=== PATIENT | female | born 1945 | race Caucasian/White ===

== ENCOUNTER 2018-10-03 15:53 | Emergency (ER) | payer BC ==
[2018-10-03 16:37] VITALS: BP 136/70; PULSE 70; TEMP 98; BMI 30.9
--- NOTE | 2018-10-03 16:56 | PDOC ---
History of Present Illness <Navjot Plascencia - Last Filed: 10/03/18 18:43> - General History Source: Patient Exam Limitations: No Limitations - History of Present Illness Initial Comments: 10/03/18 17:26 Irene Newell is a 73yF with PMHx of hypertension and back pain presenting with left ankle pain. Yesterday at 5pm, she tripped and fell down while walking down the stairs, collapsing on her legs. No head trauma or loss of consciousness. Her left ankle and lower leg had subsequent swelling, extensive erythema, and pain especially around the ankle. She iced the leg and took 2 extra strength tylenol without symptom relief. She was able to bear weight on her left leg after the incident. Denies anticoagulant use. <Gallo Ball - Last Filed: 10/03/18 21:39> - General Chief Complaint: Injury Stated Complaint: LEFT ANKLE PAIN Time Seen by Provider: 10/03/18 16:55 Past History <Navjot Plascencia - Last Filed: 10/03/18 18:43> - Travel Traveled outside of the country in the last 30 days: No Close contact w/someone who was outside of country & ill: No - Past Medical History Cardiac Disorders: Yes (STENT X1) COPD: No Disorders: Yes (UROSEPSIS) HTN: Yes Kidney Stones: Yes (RENAL STENT) Other medical history: CHRONIC BACK PAIN - Suicide/Smoking/Psychosocial Hx Smoking History: Never smoked Hx Alcohol Use: Yes (SOCIAL) Drug/Substance Use Hx: No <Gallo Ball - Last Filed: 10/03/18 21:39> - Past Medical History Allergies/Adverse Reactions: Allergies Allergy/AdvReac Type Severity Reaction Status Date / Time ibuprofen AdvReac Verified 10/03/18 16:33 Home Medications: Ambulatory Orders Gabapentin [Neurontin] 200 mg PO TID 10/03/18 Metoprolol Succinate [Toprol Xl] 25 mg PO DAILY 10/03/18 Oxycodone HCl/Acetaminophen [Percocet 5-325 mg Tablet] 1 - 2 tab PO Q6H PRN #20 tab MDD 6 10/03/18 Review of Systems - Review of Systems Able to Perform ROS?: Yes Is the patient limited Albanian proficient: No Constitutional: No: Chills, Fever, Weakness HEENTM: No: Eye Pain, Ear Pain, Nose Pain Respiratory: No: Cough, Shortness of Breath Cardiac (ROS): No: Chest Pain, Palpitations, Syncope ABD/GI: No: Constipated, Diarrhea : No: Flank Pain, Urgency Musculoskeletal: Yes: Joint Swelling (left ankle swelling), Other (left ankle pain) Integumentary: No: Flushing, Rash, Sweating Neurological: No: Headache, Seizure, Weakness Hematologic/Lymphatic: Yes: Other (bruising left ankle and lower leg). No: Anemia <Gallo Ball - Last Filed: 10/03/18 21:39> *Physical Exam - Vital Signs Last Vital Signs Temp Pulse Resp BP Pulse Ox 98.0 F 70 18 136/70 97 10/03/18 15:54 10/03/18 15:54 10/03/18 15:54 10/03/18 15:54 10/03/18 15:54 <Navjot Plascencia - Last Filed: 10/03/18 18:43> - Vital Signs Last Vital Signs Temp Pulse Resp BP Pulse Ox 98.0 F 70 18 136/70 97 10/03/18 15:54 10/03/18 15:54 10/03/18 15:54 10/03/18 15:54 10/03/18 15:54 - Physical Exam General Appearance: Yes: Nourished, Mild Distress Extremity: positive: Tender (anterior portion of medial mallelous, not tender at posterior edges of medial/lateral malleoli, not tender at 5th metatarsal region or navicular region ), Pedal Edema (2+ up to knees bilaterally, left > right), Other (significant erythema and swelling of left ankle and lower leg). negative: Normal Range of Motion (reduced ROM due to pain in left leg) <Gallo Ball - Last Filed: 10/03/18 21:39> Procedures - Splinting Splint Location: Left: Ankle (foot in neutral position) Pre-Proc Neuro Vasc Exam: normal Hand-Made Type: fiberglass Splint Type: Yes: Posterior Post-Proc Neuro Vasc Exam: normal Raghav Bandage: yes <Gallo Ball - Last Filed: 10/03/18 21:39> Medical Decision Making - Critical Care Time Total Critical Care Time (minutes): 30 Critical Care Statement: The care of this patient involved high complexity decision making to prevent further life threatening deterioration of the patient 's condition and/or to evaluate & treat vital organ system(s) failure or risk of failure. - Medical Decision Making 10/03/18 17:36 ordered left ankle x-ray due to significant swelling and bruising despite negative [place] ankle rules XR shows left medial malleolar displaced fracture applied posterior leg splint, given crutches, told to follow up with orthopedic doc tomorrow Irene Newell is a 73y F with PMHx presenting with left ankle tenderness, swelling , and erythema. Ankle x-ray showed left medial malleolus displaced fracture. Applied left fiberglass posterior ankle split with ankle in neutral position per Dr. Valdez orthopedist. Discharged with percocet for pain relief. Instructed patient to follow up with orthopedist tomorrow. <Gallo Ball - Last Filed: 10/03/18 21:39> *DC/Admit/Observation/Transfer - Discharge Dispostion Decision to Admit order: No <Navjot Plascencia - Last Filed: 10/03/18 18:43> <Gallo Ball - Last Filed: 10/03/18 21:39> Diagnosis at time of Disposition: Fractured medial malleolus Qualifiers: Encounter type: initial encounter Fracture type: closed Fracture alignment: displaced Laterality: left Qualified Code(s): S82.52XA - Displaced fracture of medial malleolus of left tibia, initial encounter for closed fracture - Discharge Dispostion Disposition: HOME Condition at time of disposition: Stable - Prescriptions Prescriptions: Oxycodone HCl/Acetaminophen [Percocet 5-325 mg Tablet] 1 - 2 tab PO Q6H PRN #20 tab MDD 6 PRN Reason: Severe Pain - Referrals Referrals: Ozzy Valdez MD [Staff Physician] - 24 hours - Patient Instructions Printed Discharge Instructions: DI for Ankle Fracture Additional Instructions: rest, elevate splint. See Dr. Valdez tomorrow as arranged for further treatment - Post Discharge Activity
--- NOTE | 2018-10-05 09:26 | PDOC ---
Attending Attestation - Resident Resident Name: Gallo Ball - ED Attending Attestation I have performed the following: I have examined & evaluated the patient, The case was reviewed & discussed with the resident, I agree w/resident's findings & plan, Exceptions are as noted - HPI HPI: 10/05/18 09:22 Ankle injury yesterday, tripped and fell. Persistent pain and swelling. No distal numbness tingling or weakness. Ambulating with assistance - Physicial Exam PE: 10/05/18 09:22 Ankle is diffusely swollen with edema and ecchymoses. Primarily medially. Point tenderness over the medial malleolus. Pulses full. No distal sensory or motor deficits. X-ray shows a fracture of the medial malleolus, minimally displaced. Ankle mortise is intact. - Medical Decision Making 10/05/18 09:23 Assessment: Isolated fracture of the medial malleolus, no joint instability. Neurovascular intact Plan: Dr. Valdez, on-call for orthopedic surgery, was contacted by phone. The injury and findings were described. He recommended splinting, nonweightbearing, and will follow-up tomorrow in his office. Posterior splint was applied, with an effort to maintain the foot in neutral position. After splinting, the patient was more comfortable, there was no distal numbness tingling or pain. There was good toe motion. Crutches were given and the patient was instructed to follow-up the following day with Dr. Valdez. Office address and phone number were given to the patient and her son and they agreed to follow-up as directed. Patient was adequately ambulatory with assistance and discharged to follow-up as directed
== END 2018-10-03 19:00 | disposition home or self-care (01) ==
LOC: SUPCPDRO 15:53 → FER 15:53
DX: S82.52XA Displaced fracture of medial malleolus of left tibia, initial encounter for closed fracture (principal); W18.39XA Other fall on same level, initial encounter; Y93.89 Activity, other specified; Y92.89 Other specified places as the place of occurrence of the external cause; I10 Essential (primary) hypertension; Z95.5 Presence of coronary angioplasty implant and graft; G89.29 Other chronic pain
CPT/HCPCS: 73610-TC-LT-FY; 99283-25

== ENCOUNTER 2019-01-04 12:12 | Inpatient (IN) | payer BC ==
[2019-01-04] MEDS ORDERED: ACETAMINOPHEN 1000 MG/100 ML VIAL (NON FORMULARY) IVPB ONE (12:30)
[2019-01-04] MEDS ORDERED: ACETAMINOPHEN INJECTION 100 ML IVPB ONE (12:34)
--- NOTE | 2019-01-04 12:34 | PDOC ---
History of Present Illness - General Chief Complaint: Injury Stated Complaint: FALL(UNWITNESSED) Time Seen by Provider: 01/04/19 12:14 History Source: EMS (Patient brought in by ambulance after fall in her bathroom hit the nose, does not have the recollection of preceding events, sustained laceration right lower leg and bruises right elbow) Exam Limitations: No Limitations - History of Present Illness Is this a multiple visit Asthma Patient?: No Timing/Duration: momentarily Severity: moderate, severe Past History - Travel Traveled outside of the country in the last 30 days: No Close contact w/someone who was outside of country & ill: No - Past Medical History Allergies/Adverse Reactions: Allergies Allergy/AdvReac Type Severity Reaction Status Date / Time No Known Drug Allergies Allergy Verified 01/12/19 12:25 Home Medications: Ambulatory Orders Metoprolol Succinate [Toprol Xl] 25 mg PO HS 01/04/19 Aspirin [ASA -] 81 mg PO DAILY 01/05/19 Cardiac Disorders: Yes (STENT X1) COPD: No Disorders: Yes (UROSEPSIS) HTN: Yes Kidney Stones: Yes (RENAL STENT) - Surgical History Orthopedic Surgery: Yes (left ankle surgery) - Psycho Social/Smoking Cessation Hx Smoking History: Never smoked Hx Alcohol Use: Yes (SOCIAL) Drug/Substance Use Hx: No Review of Systems - Review of Systems Able to Perform ROS?: Yes Is the patient limited Beninese proficient: Yes Constitutional: Yes: Symptoms Reported, See HPI, Chills ABD/GI: No: Symptoms Reported, See HPI, Abdominal Distended, Abd. Pain w/ defecation, Blood Streaked Bowels, Constipated, Diarrhea, Difficulty Swallowing , Nausea, Poor Appetite, Poor Fluid Intake, Rectal Bleeding, Vomiting, Indigestion, Abdominal cramping, Tarry Stools, Other Musculoskeletal: Yes: Back Pain Integumentary: No: Symptoms Reported, See HPI, Bruising, Change in Color, Change in Hair/Nails, Dryness, Erythema, Flushing, Lesions, Lumps, Pallor, Pruritus, Rash, Sweating, Other Neurological: No: Symptoms reported, See HPI, Headache, Numbness, Paresthesia, Pre-Existing Deficit, Seizure, Tingling, Tremors, Weakness, Unsteady Gait, Ataxia, Dizziness, Other Psychiatric: No: Anxiety, Depression, Frequent Crying, Stressors, Sleep Pattern Change, Emotional Problems, Mood Swings, Change in Appetite, Other Endocrine: No: Symptoms Reported, See HPI, Excessive Sweating, Flushing, Intolerance to Cold, Intolerance to Heat, Increased Hunger, Increased Thirst, Increased Urine, Unexplained Weight Gain, Unexplained Weight Loss, Change in Weight, Other Hematologic/Lymphatic: No: Symptoms Reported, See HPI, Anemia, Blood Clots, Easy Bleeding, Easy Bruising, Bleeding Diathesis, Lymph Node Abnormalities, Swollen Glands, Other All Other Systems: Reviewed and Negative *Physical Exam - Physical Exam General Appearance: Yes: Nourished, Appropriately Dressed, Moderate Distress HEENT: positive: BRI, Normal ENT Inspection, Normal Voice, Symmetrical, Pharynx Normal. 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 NML intact, Alert, Normal Mood/Affect Procedures - Laceration/Wound Repair Right Anterior Distal Leg Wound Length: 7.6 to 12.5 cm Wound Explored: clean, no foreign body present Wound's Depth, Shape: superficial, irregular Irrigated w/ Saline: Yes Anesthesia: 2% Lidocaine Amount of Anesthetic (ccs): 10 Wound Debrided: moderate Wound Repaired With: Sutures Suture Size/Type: 5:0 Number of Sutures: 12 Sterile Dressing Applied: Yes Progress: Patient tolerated procedure well, sterile dressing applied 01/06/19 16:09 ED Treatment Course - LABORATORY CBC & Chemistry Diagram: 01/08/19 05:45 01/08/19 05:45 Medical Decision Making - Critical Care Time Total Critical Care Time (minutes): 30 Critical Care Statement: The care of this patient involved high complexity decision making to prevent further life threatening deterioration of the patient 's condition and/or to evaluate & treat vital organ system(s) failure or risk of failure. - Medical Decision Making 01/06/19 16:10 Patient seen immediately from arrival, orders placed in, and treatments have begun once the sepsis evaluation has been done. IV fluids, atbc admitted to the hospital 01/06/19 18:44 Discharge - Discharge Information Problems reviewed: Yes Clinical Impression/Diagnosis: Elevated troponin I level Fall Qualifiers: Encounter type: initial encounter Qualified Code(s): W19.XXXA - Unspecified fall, initial encounter Sepsis Qualifiers: Sepsis type: sepsis due to unspecified organism Sepsis acute organ dysfunction status: without acute organ dysfunction Qualified Code(s): A41.9 - Sepsis, unspecified organism Syncope Qualifiers: Syncope type: vasovagal syncope Qualified Code(s): R55 - Syncope and collapse Condition: Improved Disposition: HOME HEALTH CARE - Admission Yes - Additional Discharge Information Prescription Drug Monitoring Program (I-STOP) results: I-STOP reviewed and no issues identified - Follow up/Referral - Patient Discharge Instructions - Post Discharge Activity
[2019-01-04 13:08] LABS: INR 1.39 (0.82-1.09); PROTHROMBIN TIME (PATIENT) 15.5 SEC (10.2-13.0)
[2019-01-04 13:09] LABS: ALBUMIN 3.2 g/dl (3.4-5.0); BILIRUBIN,TOTAL 1.3 mg/dl (0.2-1); CALCIUM 9.4 mg/dl (8.5-10); CREATININE 1.2 mg/dl (0.55-1.3); POTASSIUM 3.8 mmol/L (3.5-5.1); TOT PROT 6.4 g/dl (6.4-8.2)
[2019-01-04 13:16] LABS: HEMATOCRIT 41.8 % (32.4-45.2); MCH 31.6 pg (25.7-33.7); MCHC 33.4 g/dl (32.0-36.0); MEAN CELL VOLUME 94.6 fl (80-96); MEAN PLT VOLUME 9.9 fl (7.5-11.1); PLATELET COUNT 242 K/MM3 (134-434); RBC 4.42 M/mm3 (3.60-5.2); RDW 13.8 % (11.6-15.6); WHITE BLOOD COUNT 23.8 K/mm3 (4.0-10.8)
[2019-01-04 14:10] LABS: PLATELET ESTIMATE ADEQUATE
[2019-01-04] MEDS ORDERED: SODIUM CHLORIDE 0.9% 500 ML INFUS.BAG IV ONE (14:38)
[2019-01-04] MEDS ORDERED: PIPERACILLIN/TAZOB 3.375 GM 3.375 GM in DEXTROSE 5%-WATER - 50 ML IVPB ONE (14:39)
[2019-01-04] MEDS ORDERED: PIPERACILLIN/TAZOBACTAM 3.375 GM VIAL IVPB ONE (14:43)
[2019-01-04] MEDS ORDERED: LIDO 2%/EPI 1:200000 PRESRVFRE (20 ML SDVIAL) ONE (15:14)
--- NOTE | 2019-01-04 15:19 | HP ---
CHIEF COMPLAINT: Syncope, fatigue, chills PCP: Dr. Morgan, [facility] Cardiology: Dr. Green, [facility] HISTORY OF PRESENT ILLNESS: 73 year-old female with a PMH significant for HTN, CAD s/p stent, left ankle ORIF (September 2018), and c. diff (October 2018). Patient brought by EMS to ED following syncopal episode and fall at home. Patient reports this past weekend attended a wedding on [place], a 3 [place]/[address], returning on Wednesday. She felt unusually tired but no other symptoms. On Wednesday, she became profoundly fatigued and spent the day in bed and felt she lost track of time. She had one or two episodes of chills. This morning patient went into the bathroom to take a shower and the next thing she recalls was waking up on the floor, half in the tub, half out, with abrasions and a laceration on her right leg. Her son called EMS. Patient denies nausea, vomiting, diarrhea. Denies chest pain, palpitations, SOB, MCMANUS, orthopnea, lower extremity edema. Denies dysuria, urgency, frequency, hematuria. Denies headache, dizziness, lightheadedness. ER course was notable for: (1) T102, p122, WBC 23.8k, lactic acid 5.1 (2) Urine >100 WBCs Recent Travel: [facility] over this past weekend PAST MEDICAL HISTORY: Hypertension Coronary artery disease s/p stent PAST SURGICAL HISTORY: Coronary artery stent Left ankle ORIF Social History: lives in [place] with son; works at [employer] in [place] Smoking: no Alcohol:no Drugs: no Allergies ibuprofen Adverse Reaction (Verified 10/03/18 16:33) LEG EDEMA Family history: Mother 50s breast cancer; father 75 unknown; sister 70 a&w; 2 children, 1 grandchild a&w HOME MEDICATIONS: Home Medications Medication Instructions Recorded Gabapentin [Neurontin] 200 mg PO TID 10/03/18 Metoprolol Succinate [Toprol Xl] 25 mg PO DAILY 10/03/18 Oxycodone HCl/Acetaminophen 1 - 2 tab PO Q6H PRN #20 tab MDD 6 10/03/18 [Percocet 5-325 mg Tablet] Acetaminophen [Tylenol] 325 mg PO AC #10 capsule 01/04/19 REVIEW OF SYSTEMS CONSTITUTIONAL: +chills, profound fatigue Absent: diaphoresis, malaise, loss of appetite, weight change HEENT: Absent: rhinorrhea, nasal congestion, throat pain, throat swelling, difficulty swallowing, mouth swelling, ear pain, eye pain, visual changes CARDIOVASCULAR: Absent: chest pain, syncope, palpitations, irregular heart rate, lightheadedness , peripheral edema RESPIRATORY: Absent: cough, shortness of breath, dyspnea with exertion, orthopnea, wheezing, stridor, hemoptysis GASTROINTESTINAL: Absent: abdominal pain, abdominal distension, nausea, vomiting, diarrhea, constipation, melena, hematochezia GENITOURINARY: Absent: dysuria, frequency, urgency, hesitancy, hematuria, flank pain, genital pain MUSCULOSKELETAL: Absent: myalgia, arthralgia, joint swelling, back pain, neck pain SKIN: Absent: rash, itching, pallor HEMATOLOGIC/IMMUNOLOGIC: Absent: easy bleeding, easy bruising, lymphadenopathy, frequent infections ENDOCRINE: Absent: unexplained weight gain, unexplained weight loss, heat intolerance, cold intolerance NEUROLOGIC: Absent: headache, focal weakness or paresthesias, dizziness, unsteady gait, seizure, mental status changes, bladder or bowel incontinence PSYCHIATRIC: Absent: anxiety, depression, suicidal or homicidal ideation, hallucinations. PHYSICAL EXAMINATION Vital Signs - 24 hr 01/04/19 01/04/19 12:13 13:20 Temperature 102 F H 98.3 F Pulse Rate 122 H Pulse Rate [ 107 H Apical] Respiratory 20 19 Rate Blood Pressure 99/60 O2 Sat by Pulse 90 L 95 Oximetry (%) GENERAL: Awake, alert, and fully oriented. Ill-appearing. HEAD: Abrasions to face, nose EYES: Pupils equal, round and reactive to light, extraocular movements intact, sclera anicteric, conjunctiva clear. No lid lag. LUNGS: Breath sounds equal, clear to auscultation HEART: Regular rate and rhythm, S1 and S2 ABDOMEN: Soft, nontender, not distended, normoactive bowel sounds, no guarding, no rebound tenderness MUSCULOSKELETAL: Normal range of motion at all joints. No bony deformities or tenderness. No CVA tenderness. UPPER EXTREMITIES: 2+ pulses, warm, well-perfused. No cyanosis. No clubbing. No peripheral edema. LOWER EXTREMITIES: 2+ pulses, warm, well-perfused. No calf tenderness. No peripheral edema. RLE: pre-tibial sutures, wound edges well-approximated, no active bleeding, no exudate NEUROLOGICAL: Cranial nerves II-XII intact. Normal speech. SKIN: Warm, dry, normal turgor Laboratory Results - last 24 hr 01/04/19 01/04/19 01/04/19 12:15 12:15 12:15 WBC 23.8 H RBC 4.42 Hgb 14.0 Hct 41.8 MCV 94.6 MCH 31.6 MCHC 33.4 RDW 13.8 Plt Count 242 MPV 9.9 Absolute Neuts (auto) 22.9 Neutrophils % No Result Required. Neutrophils % (Manual) 92.0 H* Band Neutrophils % 3.0 Lymphocytes % No Result Required. Lymphocytes % (Manual) 3.0 L Monocytes % (Manual) 2 L Platelet Estimate Adequate PT with INR INR Sodium 136 Potassium 3.8 Chloride 107 Carbon Dioxide 20 L Anion Gap 9 BUN 22.0 H Creatinine 1.2 Est GFR (CKD-EPI)AfAm 51.56 Est GFR (CKD-EPI)NonAf 44.48 Random Glucose 183 H Lactic Acid 5.3 H* Calcium 9.4 Total Bilirubin 1.3 H AST 69 H ALT 42 Alkaline Phosphatase 80 Troponin I Total Protein 6.4 Albumin 3.2 L Urine Color Urine Appearance Urine pH Urine Protein Urine Glucose (UA) Urine Ketones Urine Blood Urine Nitrite Urine Bilirubin Urine Urobilinogen Ur Leukocyte Esterase 01/04/19 01/04/19 01/04/19 12:15 12:15 13:55 WBC RBC Hgb Hct MCV MCH MCHC RDW Plt Count MPV Absolute Neuts (auto) Neutrophils % Neutrophils % (Manual) Band Neutrophils % Lymphocytes % Lymphocytes % (Manual) Monocytes % (Manual) Platelet Estimate PT with INR 15.5 H INR 1.39 H Sodium Potassium Chloride Carbon Dioxide Anion Gap BUN Creatinine Est GFR (CKD-EPI)AfAm Est GFR (CKD-EPI)NonAf Random Glucose Lactic Acid Calcium Total Bilirubin AST ALT Alkaline Phosphatase Troponin I 0.57 H Total Protein Albumin Urine Color Dark Urine Appearance Cloudy Urine pH 5.5 Urine Protein 3+ H Urine Glucose (UA) Negative Urine Ketones Negative Urine Blood 3+ H Urine Nitrite Negative Urine Bilirubin Negative Urine Urobilinogen 0.2 Ur Leukocyte Esterase 1+ ASSESSMENT/PLAN 73 year-old female with a PMH significant for HTN, CAD s/p stent, left ankle ORIF (September 2018), and c. diff (October 2018). Patient brought by EMS to ED following syncopal episode and fall at home. Admitted for severe sepsis secondary to pyelonephritis. Severe sepsis secondary to pyelonephritis --T102, p122, WBC 23.8k, lactic acid 5.1, and pyuria on admission --Fluid resuscitated 2L, continue IV fluids --cultures collected and sent --Zosyn started in ED --CTAP ordered Syncope Coronary artery disease --initial troponin 0.57, serial troponins --ECG: no sign of acute ischemia; prolonged QTc>600 --may be seconday to demand from sepsis Right leg laceration --monitor s/s infection; sutures out in 10 days FEN Fluids: NS@ 125mL/hr Electrolytes: replete as indicated Nutrition: regular diet Dispo: continues to require inpatient care. Full code. Visit type - Emergency Visit Emergency Visit: Yes ED Registration Date: 01/04/19 Care time: The patient presented to the Emergency Department on the above date and was hospitalized for further evaluation of their emergent condition. - New Patient This patient is new to me today: Yes Date on this admission: 01/05/19 - Critical Care Critical Care patient: Yes Total Critical Care Time (in minutes): 90 Critical Care Statement: The care of this patient involved high complexity decision making to prevent further life threatening deterioration of the patient 's condition and/or to evaluate & treat vital organ system(s) failure or risk of failure.
--- NOTE | 2019-01-04 15:55 | PDOC ---
*Physical Exam - Vital Signs Last Vital Signs Temp Pulse Resp BP Pulse Ox 98.5 F 77 18 92/60 97 01/04/19 15:41 01/04/19 15:41 01/04/19 15:41 01/04/19 15:41 01/04/19 15:41 ED Treatment Course - LABORATORY CBC & Chemistry Diagram: 01/04/19 12:15 01/04/19 12:15 - ADDITIONAL ORDERS Additional order review: Laboratory Results 01/04/19 01/04/19 01/04/19 13:55 12:15 12:15 PT with INR 15.5 H INR 1.39 H Sodium Potassium Chloride Carbon Dioxide Anion Gap BUN Creatinine Est GFR (CKD-EPI)AfAm Est GFR (CKD-EPI)NonAf Random Glucose Lactic Acid Calcium Total Bilirubin AST ALT Alkaline Phosphatase Troponin I 0.57 H Total Protein Albumin Urine Color Dark Urine Appearance Cloudy Urine pH 5.5 Urine Protein 3+ H Urine Glucose (UA) Negative Urine Ketones Negative Urine Blood 3+ H Urine Nitrite Negative Urine Bilirubin Negative Urine Urobilinogen 0.2 Ur Leukocyte Esterase 1+ 01/04/19 01/04/19 12:15 12:15 PT with INR INR Sodium 136 Potassium 3.8 Chloride 107 Carbon Dioxide 20 L Anion Gap 9 BUN 22.0 H Creatinine 1.2 Est GFR (CKD-EPI)AfAm 51.56 Est GFR (CKD-EPI)NonAf 44.48 Random Glucose 183 H Lactic Acid 5.3 H* Calcium 9.4 Total Bilirubin 1.3 H AST 69 H ALT 42 Alkaline Phosphatase 80 Troponin I Total Protein 6.4 Albumin 3.2 L Urine Color Urine Appearance Urine pH Urine Protein Urine Glucose (UA) Urine Ketones Urine Blood Urine Nitrite Urine Bilirubin Urine Urobilinogen Ur Leukocyte Esterase 01/04/19 12:15 RBC 4.42 MCV 94.6 MCHC 33.4 RDW 13.8 MPV 9.9 Neutrophils % No Result Required. Lymphocytes % No Result Required. - Medications Given in the ED: ED Medications Discontinued Medications Generic Name Dose Route Start Last Admin Trade Name Freq PRN Reason Stop Dose Admin Acetaminophen 1,000 mg 01/04/19 12:30 01/04/19 12:36 Ofirmev Injection - IVPB 01/04/19 12:31 1,000 mg ONCE ONE Administration Piperacillin Sod/Tazobactam 50 mls @ 100 mls/hr 01/04/19 14:39 01/04/19 14:50 Sod 3.375 gm/ Dextrose IVPB 01/04/19 15:08 100 mls/hr ONCE ONE Administration Protocol Sodium Chloride 1,000 ml 01/04/19 14:38 01/04/19 14:43 Normal Saline - IV 01/04/19 14:39 1,000 ml ONCE ONE Administration Discharge - Discharge Information Problems reviewed: Yes Clinical Impression/Diagnosis: Elevated troponin I level Fall Qualifiers: Encounter type: initial encounter Qualified Code(s): W19.XXXA - Unspecified fall, initial encounter Sepsis Qualifiers: Sepsis type: sepsis due to unspecified organism Sepsis acute organ dysfunction status: unspecified Qualified Code(s): A41.9 - Sepsis, unspecified organism Syncope Qualifiers: Syncope type: unspecified Qualified Code(s): R55 - Syncope and collapse Condition: Fair - Admission Yes - Follow up/Referral - Patient Discharge Instructions - Post Discharge Activity Procedures - Laceration/Wound Repair Right Lower Anterior Medial Distal Leg Wound Length: 12.6 to 20 cm Wound Explored: clean Wound's Depth, Shape: superficial Irrigated w/ Saline: Yes Betadine Prep: Yes Anesthesia: 2% Lidocaine w/ Epi Amount of Anesthetic (ccs): 10 Wound Debrided: minimal Wound Repaired With: Sutures Suture Size/Type: 4:0 Number of Sutures: 17 Layer Closure: No Sterile Dressing Applied: Yes Splint Applied: No
[2019-01-04] MEDS ORDERED: SODIUM CHLORIDE 1,000 ML IV STA (16:16)
[2019-01-04 16:53] VITALS: BMI 29.6
[2019-01-04] MEDS ORDERED: VANCOMYCIN HCL 1,250 MG in DEXTROSE 5%-WATER - 250 ML IVPB SCH ×2 (17:15→17:30)
[2019-01-04 17:27] LABS: EPITHELIAL CELLS FEW /hpf
[2019-01-04] MEDS ORDERED: SODIUM CHLORIDE 1,000 ML IV SCH (17:30)
[2019-01-04] MEDS ORDERED: PIPERACILLIN/TAZOBACTAM 2.25 GM VIAL IVPB ONE (22:17)
[2019-01-04] MEDS ORDERED: DEXTROSE 5%-WATER - 50 ML IVPB ONE ×2 (22:17→22:39)
[2019-01-04] MEDS: PIPERACILLIN/TAZOB 2.25 GM 2.25 GM in DEXTROSE 5%-WATER - 50 ML IVPB SCH (22:24)
[2019-01-04] MEDS ORDERED: PIPERACILLIN/TAZOB 2.25 GM 2.25 GM in DEXTROSE 5%-WATER - 50 ML IVPB SCH (23:00)
[2019-01-04] MEDS: VANCOMYCIN 250 MG/5 ML ORAL SOLUTION PO SCH (23:19)
[2019-01-05] MEDS ORDERED: DEXTROSE 5%-WATER - 50 ML IVPB ONE ×4 (01:08→17:06)
[2019-01-05] MEDS ORDERED: PIPERACILLIN/TAZOBACTAM 2.25 GM VIAL IVPB ONE ×2 (01:08→09:15)
[2019-01-05] MEDS ORDERED: PT OWN MED DRAWER 7, Y5N ONE (01:09)
[2019-01-05] MEDS: PIPERACILLIN/TAZOB 2.25 GM 2.25 GM in DEXTROSE 5%-WATER - 50 ML IVPB SCH (03:39)
[2019-01-05] MEDS ORDERED: REFRIGERATED ANITBIOTICS ONE ×2 (06:27→12:15)
[2019-01-05] MEDS: VANCOMYCIN 250 MG/5 ML ORAL SOLUTION PO SCH (06:31)
[2019-01-05 07:56] LABS: BASO % 1.9 % (0-2.0); EOS % 0.2 % (0-4.5); HEMATOCRIT 34.2 % (32.4-45.2); HEMOGLOBIN 11.4 GM/dl (10.7-15.3); LYMPH % 5.2 % (8-40); MCH 31.7 pg (25.7-33.7); MCHC 33.1 g/dl (32.0-36.0); MEAN CELL VOLUME 95.6 fl (80-96); MEAN PLT VOLUME 9.8 fl (7.5-11.1); MONO % 4.1 % (3.8-10.2); NEUT % 88.6 % (42.8-82.8); PLATELET COUNT 178 K/MM3 (134-434); RBC 3.58 M/mm3 (3.60-5.2); RDW 13.6 % (11.6-15.6); WHITE BLOOD COUNT 13.3 K/mm3 (4.0-10.8)
[2019-01-05] MEDS ORDERED: SODIUM CHLORIDE 1,000 ML IV SCH (07:56)
[2019-01-05 08:06] LABS: ALBUMIN 2.4 g/dl (3.4-5.0); CALCIUM 8.4 mg/dl (8.5-10); CREATININE 0.8 mg/dl (0.55-1.3); MAGNESIUM 1.9 mg/dL (1.8-2.4); POTASSIUM 3.6 mmol/L (3.5-5.1); TOT PROT 4.9 g/dl (6.4-8.2)
--- NOTE | 2019-01-05 09:12 | CON.ID ---
Consult Consult Specialty:: infectious diseases Referred by:: Peg Reason for Consultation:: sepsis,bacteremia - History of Present Illness Chief Complaint: passing out, History of Present Illness: patient coming to the hospital because according to the patient she passed out and fell down sustaining injuries on her legs and arm patient currently feeling good patient on admission was found to have - History Source History Provided By: Patient Limitations to Obtaining History: No Limitations - Past Medical History ...: No - Alcohol/Substance Use Hx Alcohol Use: Yes (SOCIAL) - Smoking History Smoking history: Never smoked Have you smoked in the past 12 months: No Home Medications - Allergies Allergies/Adverse Reactions: Allergies Allergy/AdvReac Type Severity Reaction Status Date / Time No Known Drug Allergies Allergy Verified 01/04/19 17:22 - Home Medications Home Medications: Ambulatory Orders Metoprolol Succinate [Toprol Xl] 25 mg PO HS 01/04/19 Review of Systems - Review of Systems Constitutional: reports: No Symptoms Eyes: reports: No Symptoms HENT: reports: No Symptoms Cardiovascular: reports: No Symptoms Respiratory: reports: No Symptoms Gastrointestinal: reports: No Symptoms Genitourinary: reports: No Symptoms Musculoskeletal: reports: No Symptoms Integumentary: reports: No Symptoms Neurological: reports: No Symptoms Endocrine: reports: No Symptoms Hematology/Lymphatic: reports: No Symptoms Psychiatric: reports: No Symptoms Physical Exam Vital Signs: Vital Signs Temperature 99.0 F 01/05/19 08:00 Pulse Rate 74 01/05/19 08:00 Respiratory Rate 17 01/05/19 08:00 Blood Pressure 110/62 01/05/19 08:00 O2 Sat by Pulse Oximetry (%) 97 01/05/19 05:41 Constitutional: Yes: No Distress, Calm Eyes: Yes: Conjunctiva Clear Cardiovascular: Yes: S1, S2 Respiratory: Yes: Regular, CTA Bilaterally Gastrointestinal: Yes: Normal Bowel Sounds, Soft Musculoskeletal: Yes: WNL Extremities: Yes: Other Neurological: Yes: Alert, Oriented Psychiatric: Yes: Alert, Oriented Labs: CBC, BMP 01/05/19 06:57 01/05/19 06:57 Imaging - Results Chest X-ray: Report Reviewed, Image Reviewed Cat Scan: Report Reviewed, Image Reviewed
[2019-01-05] MEDS: PIPERACILLIN/TAZOB 3.375 GM 3.375 GM in DEXTROSE 5%-WATER - 50 ML IVPB SCH ×2 (10:00→17:22)
[2019-01-05] MEDS ORDERED: FLU VACCINE QUAD 60 MCG/0.5 ML (MDV 19-20) IM ONE (10:00)
[2019-01-05] MEDS ORDERED: PIPERACILLIN/TAZOBACTAM 3.375 GM VIAL IVPB ONE ×2 (10:55→17:06)
[2019-01-05] MEDS ORDERED: VANCOMYCIN HCL 1,250 MG in DEXTROSE 5%-WATER - 250 ML IVPB SCH (13:00)
[2019-01-05] MEDS: ACETAMINOPHEN 325 MG TABLET (FP) PO PRN ×2 (13:08→21:48)
--- NOTE | 2019-01-05 15:09 | EKG ---
Test Reason : Blood Pressure : / mmHG Vent. Rate : 117 BPM Atrial Rate : 117 BPM P-R Int : 000 ms QRS Dur : 078 ms QT Int : 454 ms P-R-T Axes : 000 -11 024 degrees QTc Int : 633 ms ACCELERATED JUNCTIONAL RHYTHM NONSPECIFIC ST ABNORMALITY PROLONGED QT ABNORMAL ECG NO PREVIOUS ECGS AVAILABLE Confirmed by SHEREE CHAN, YASIR ([id number]) on 01/05/2019 3:08:46 PM Referred By: SHERMAN OSBORN Confirmed By:YASIR BENTLEY MD
[2019-01-05] MEDS: ASPIRIN 81 MG CHEWABLE TABLETS PO SCH (15:35)
--- NOTE | 2019-01-05 15:43 | PN ---
Physical Exam: SUBJECTIVE: Patient seen and examined oob to chair. Walked with PT this morning. Feels stronger. Denies pain of any type. OBJECTIVE: Vital Signs Period Temp Pulse Resp BP Sys/Parra Pulse Ox Last 24 Hr 98.0 F-99.0 F 65-108 16-19 88-125/47-74 94-100 GENERAL: The patient is awake, alert, and fully oriented, in no acute distress. Weak appearing. LUNGS: CTA HEART: RRR, S1, S2 ABDOMEN: Soft, nontender, nondistended EXTREMITIES: 2+ pulses, warm, well-perfused, no edema. RLE: sutures visualized, scant oozing of blood, no exudate, no odor, edges well-approximated, 10cm area of ecchymosis distal to laceration NEUROLOGICAL: Cranial nerves II through XII grossly intact. Normal speech, steady gait observed earlier SKIN: Warm, dry, normal turgor Laboratory Results - last 24 hr 01/04/19 01/04/19 01/04/19 12:15 13:55 17:55 WBC RBC Hgb Hct MCV MCH MCHC RDW Plt Count MPV Absolute Neuts (auto) Neutrophils % Lymphocytes % Monocytes % Eosinophils % Basophils % Sodium Potassium Chloride Carbon Dioxide Anion Gap BUN Creatinine Est GFR (CKD-EPI)AfAm Est GFR (CKD-EPI)NonAf Random Glucose Lactic Acid 1.3 Calcium Magnesium Total Bilirubin AST ALT Alkaline Phosphatase Troponin I 0.57 H Total Protein Albumin Urine RBC 5-10 Urine WBC >100 Ur Transition Epith Cell Few Urine Bacteria Many 01/04/19 01/04/19 01/05/19 19:55 22:36 06:25 WBC RBC Hgb Hct MCV MCH MCHC RDW Plt Count MPV Absolute Neuts (auto) Neutrophils % Lymphocytes % Monocytes % Eosinophils % Basophils % Sodium Potassium Chloride Carbon Dioxide Anion Gap BUN Creatinine Est GFR (CKD-EPI)AfAm Est GFR (CKD-EPI)NonAf Random Glucose Lactic Acid 1.3 1.5 Calcium Magnesium Total Bilirubin AST ALT Alkaline Phosphatase Troponin I 1.08 H* Total Protein Albumin Urine RBC Urine WBC Ur Transition Epith Cell Urine Bacteria 01/05/19 01/05/19 06:57 06:57 WBC 13.3 H RBC 3.58 L Hgb 11.4 Hct 34.2 D MCV 95.6 MCH 31.7 MCHC 33.1 RDW 13.6 Plt Count 178 MPV 9.8 Absolute Neuts (auto) 11.8 Neutrophils % 88.6 H Lymphocytes % 5.2 L Monocytes % 4.1 Eosinophils % 0.2 Basophils % 1.9 Sodium 136 Potassium 3.6 Chloride 109 H Carbon Dioxide 21 Anion Gap 6 L BUN 20.0 H Creatinine 0.8 Est GFR (CKD-EPI)AfAm 84.18 Est GFR (CKD-EPI)NonAf 72.63 Random Glucose 103 Lactic Acid Calcium 8.4 L Magnesium 1.9 Total Bilirubin 1.0 AST 118 H ALT 46 Alkaline Phosphatase 52 D Troponin I Total Protein 4.9 L Albumin 2.4 L Urine RBC Urine WBC Ur Transition Epith Cell Urine Bacteria Active Medications Generic Name Dose Route Start Last Admin Trade Name Freq PRN Reason Stop Dose Admin Acetaminophen 650 mg 01/05/19 12:44 01/05/19 13:08 Tylenol - PO 650 mg Q6H PRN Administration PAIN LEVEL 1-5 Aspirin 81 mg 01/05/19 15:15 Asa - PO DAILY ROBIN Sodium Chloride 1,000 mls @ 50 mls/hr 01/05/19 07:56 01/05/19 08:29 Normal Saline - IV 50 mls/hr ASDIR ROBIN Administration Piperacillin Sod/Tazobactam 50 mls @ 100 mls/hr 01/05/19 10:00 01/05/19 10:00 Sod 3.375 gm/ Dextrose IVPB 100 mls/hr Q8H-IV ROBIN Administration Protocol ASSESSMENT/PLAN: 73 year-old female with a PMH significant for HTN, CAD s/p stent, left ankle ORIF (September 2018), and c. diff (October 2018). Patient brought by EMS to ED following syncopal episode and fall at home. Admitted for severe sepsis secondary to pyelonephritis. Severe sepsis secondary to acute left-sided pyelonephritis and acute left-sided pyelitis Left ureteral calculus GNB bacteremia --T102, p122, WBC 23.8k, lactic acid 5.1, and pyuria on admission --BP stabilized, tachycardia resolved, lactic acid wnl --CTAP: (1) left kidney acute pyelo; (2) left acute pyelitis; (3) two abscesses upper pole left kidney 1.7x1.3x0.7cm and 1x0.7cm; (4) 0.3cm calculus distal left ureter, no hydro --blood cultures x 2 (+) --continue Zosyn (day #2) --ID following --CTAP ordered Syncope Coronary artery disease --troponin 0.57-->1.08, third pending --serial ECGs: no sign of acute ischemia; prolonged QTc>600 --may be secondary to demand from sepsis --echo --telemetry monitoring --continue home ASA --cardiac consult requested Right leg laceration --monitor s/s infection; sutures out in 10 days FEN Fluids: PO intake adequate Electrolytes: replete as indicated Nutrition: regular diet DVT prophylaxis: subq lovenox Dispo: continues to require inpatient care. Full code. Visit type - Emergency Visit Emergency Visit: Yes ED Registration Date: 01/04/19 Care time: The patient presented to the Emergency Department on the above date and was hospitalized for further evaluation of their emergent condition. - New Patient This patient is new to me today: No - Critical Care Critical Care patient: Yes Total Critical Care Time (in minutes): 45 Critical Care Statement: The care of this patient involved high complexity decision making to prevent further life threatening deterioration of the patient 's condition and/or to evaluate & treat vital organ system(s) failure or risk of failure.
[2019-01-05] MEDS: ENOXAPARIN NA (PORCINE) 40 MG/0.4 ML DISP.SYRIN SQ SCH (16:05)
--- NOTE | 2019-01-05 16:31 | CON.CARD ---
Consult Consult Specialty:: Cardiology Referred by:: Medicine Reason for Consultation:: elevated troponin - History of Present Illness Chief Complaint: fatigue History of Present Illness: 73F h/o HTN, CAD s/p stent p/w syncope, fall. Scott tired over the weekend, went to wedding over the weekend, felt worse on Tues and also felt chills. No chest pain, palps, dyspnea. She went into the bathroom on morning of admission to take a shower, doesn't remember what happened and found herself on the floor and hurt her right leg. Has been treated here for pyelonephritis, sepsis - Past Medical History ...: No - Alcohol/Substance Use Hx Alcohol Use: Yes (SOCIAL) - Smoking History Smoking history: Never smoked Have you smoked in the past 12 months: No Home Medications - Allergies Allergies/Adverse Reactions: Allergies Allergy/AdvReac Type Severity Reaction Status Date / Time No Known Drug Allergies Allergy Verified 01/04/19 17:22 - Home Medications Home Medications: Ambulatory Orders Metoprolol Succinate [Toprol Xl] 25 mg PO HS 01/04/19 Aspirin [ASA -] 81 mg PO DAILY 01/05/19 Family Medical History Family History: Unremarkable Review of Systems - Review of Systems Constitutional: reports: Weakness Eyes: reports: No Symptoms HENT: reports: No Symptoms Neck: reports: No Symptoms Cardiovascular: reports: No Symptoms Respiratory: reports: No Symptoms Gastrointestinal: reports: No Symptoms Genitourinary: reports: No Symptoms Musculoskeletal: reports: No Symptoms Integumentary: reports: No Symptoms Neurological: reports: No Symptoms Endocrine: reports: No Symptoms Hematology/Lymphatic: reports: No Symptoms Psychiatric: reports: No Symptoms Vital Signs: Vital Signs Temperature 98.4 F 01/05/19 14:00 Pulse Rate 108 H 01/05/19 14:00 Respiratory Rate 17 01/05/19 14:00 Blood Pressure 97/53 L 01/05/19 14:00 O2 Sat by Pulse Oximetry (%) 96 01/05/19 14:00 Constitutional: Yes: No Distress, Calm Eyes: Yes: Conjunctiva Clear, EOM Intact HENT: Yes: Atraumatic, Normocephalic Neck: Yes: Supple, Trachea Midline Respiratory: Yes: Regular, CTA Bilaterally Gastrointestinal: Yes: Normal Bowel Sounds, Soft Cardiovascular: Yes: Regular Rate and Rhythm JVD: No Heart Sounds: Yes: S1, S2 Extremities: No: Cold Edema: No Integumentary: No: Jaundice Neurological: Yes: Alert, Oriented Psychiatric: No: Agitated - Other Data Labs, Other Data: CBC, BMP 01/05/19 06:57 01/05/19 06:57 INR, PTT INR 1.39 (0.82-1.09) H 01/04/19 12:15 Troponin, BNP 01/05/19 06:25 Troponin I 1.08 H* Troponin, BNP 01/05/19 06:25 Troponin I 1.08 H* Assessment/Plan EKG: sinus tach, prolonged QTc, no ischemic changes tele: sinus elevated troponin - likely demand in setting of sepsis - EKG no ischemic changes - echo pending sepsis, pyelonephritis - abx per primary syncope - likely in setting of sepsis - echo pending - monitoring on tele CAD s/p stent - stent in 2017 at [facility] after abnormal stress testing, has been following up regularly with fixed capital clerk at [facility] - cont aspirin - on repatha as outpatient - has not taken recently as she was hospitalized for a few weeks - holding metoprolol in setting of low BPs
[2019-01-06] MEDS ORDERED: DEXTROSE 5%-WATER - 50 ML IVPB ONE ×4 (02:46→23:28)
[2019-01-06] MEDS ORDERED: PIPERACILLIN/TAZOBACTAM 3.375 GM VIAL IVPB ONE ×4 (02:46→23:28)
[2019-01-06] MEDS: PIPERACILLIN/TAZOB 3.375 GM 3.375 GM in DEXTROSE 5%-WATER - 50 ML IVPB SCH ×3 (02:53→17:05)
--- NOTE | 2019-01-06 08:33 | PN ---
Physical Exam: SUBJECTIVE: Patient seen and examined oob to chair. OBJECTIVE: Vital Signs Period Temp Pulse Resp BP Sys/Parra Pulse Ox Last 24 Hr 98.0 F-98.9 F 65-108 17-22 97-106/51-61 94-99 GENERAL: The patient is awake, alert, and fully oriented, in no acute distress. Weak appearing. LUNGS: CTA HEART: RRR, S1, S2 ABDOMEN: Soft, nontender, nondistended EXTREMITIES: 2+ pulses, warm, well-perfused, no edema. RLE: dressing c/d/i; wound not visualized today NEUROLOGICAL: Cranial nerves II through XII grossly intact. Normal speech, steady gait observed earlier SKIN: Warm, dry, normal turgor. Laboratory Results - last 24 hr 01/05/19 01/05/19 01/06/19 06:25 16:20 12:20 WBC 8.6 RBC 3.71 Hgb 11.8 Hct 35.1 MCV 94.5 MCH 31.8 MCHC 33.7 RDW 13.1 Plt Count 217 MPV 8.6 Absolute Neuts (auto) 6.7 Neutrophils % 78.0 Lymphocytes % 10.7 Monocytes % 8.7 Eosinophils % 2.0 Basophils % 0.6 Troponin I 1.08 H* 0.85 H* Active Medications Generic Name Dose Route Start Last Admin Trade Name Freq PRN Reason Stop Dose Admin Acetaminophen 650 mg 01/05/19 12:44 01/05/19 21:48 Tylenol - PO 650 mg Q6H PRN Administration PAIN LEVEL 1-5 Aspirin 81 mg 01/05/19 15:15 01/05/19 15:35 Asa - PO 81 mg DAILY ROBIN Administration Enoxaparin Sodium 40 mg 01/05/19 15:45 01/05/19 16:05 Lovenox - SQ 40 mg DAILY ROBIN Administration Piperacillin Sod/Tazobactam 50 mls @ 100 mls/hr 01/05/19 10:00 01/06/19 02:53 Sod 3.375 gm/ Dextrose IVPB 100 mls/hr Q8H-IV ROBIN Administration Protocol ASSESSMENT/PLAN 73 year-old female with a PMH significant for HTN, CAD s/p stent, left ankle ORIF (September 2018), and c. diff (October 2018). Patient brought by EMS to ED following syncopal episode and fall at home. Admitted for severe sepsis secondary to pyelonephritis. Severe sepsis secondary to acute left-sided pyelonephritis and acute left-sided pyelitis Left ureteral calculus E. coli bacteremia --afebrile, WBC trended to wnl; BP stabilized, tachycardia resolved, lactic acid wnl --CTAP: (1) left kidney acute pyelo; (2) left acute pyelitis; (3) two abscesses upper pole left kidney 1.7x1.3x0.7cm and 1x0.7cm; (4) 0.3cm calculus distal left ureter, no hydro --blood cultures x 1 (+) E. coli; rest of cultures pending --continue Zosyn (day #3) --ID following Syncope Coronary artery disease --troponin 0.57-->1.08-->0.85 --serial ECGs: no sign of acute ischemia; prolonged QTc>600 --likely demand ischemia from severe sepsis --echo done, pending read --telemetry monitoring: no events --continue home ASA --cardiology following Right leg laceration --monitor s/s infection; sutures out in 10 days FEN Fluids: PO intake adequate Electrolytes: replete as indicated Nutrition: regular diet DVT prophylaxis: subq lovenox Dispo: continues to require inpatient care. Full code. Visit type - Emergency Visit Emergency Visit: Yes ED Registration Date: 01/04/19 Care time: The patient presented to the Emergency Department on the above date and was hospitalized for further evaluation of their emergent condition. - New Patient This patient is new to me today: No - Critical Care Critical Care patient: No
[2019-01-06] MEDS: ENOXAPARIN NA (PORCINE) 40 MG/0.4 ML DISP.SYRIN SQ SCH (09:09)
[2019-01-06] MEDS: ASPIRIN 81 MG CHEWABLE TABLETS PO SCH (09:09)
--- NOTE | 2019-01-06 12:00 | EKG ---
Test Reason : Blood Pressure : / mmHG Vent. Rate : 075 BPM Atrial Rate : 075 BPM P-R Int : 132 ms QRS Dur : 086 ms QT Int : 406 ms P-R-T Axes : 027 -04 001 degrees QTc Int : 453 ms NORMAL SINUS RHYTHM Confirmed by NORRIS LEES MD ([id number]) on 01/06/2019 12:00:24 PM Referred By: OLE CELAYA Confirmed By:NORRIS LEES MD
[2019-01-06 12:35] LABS: BASO % 0.6 % (0-2.0); HEMATOCRIT 35.1 % (32.4-45.2); HEMOGLOBIN 11.8 GM/dl (10.7-15.3); LYMPH % 10.7 % (8-40); MCH 31.8 pg (25.7-33.7); MCHC 33.7 g/dl (32.0-36.0); MEAN CELL VOLUME 94.5 fl (80-96); MEAN PLT VOLUME 8.6 fl (7.5-11.1); MONO % 8.7 % (3.8-10.2); PLATELET COUNT 217 K/MM3 (134-434); RBC 3.71 M/mm3 (3.60-5.2); RDW 13.1 % (11.6-15.6); WHITE BLOOD COUNT 8.6 K/mm3 (4.0-10.8)
--- NOTE | 2019-01-06 13:23 | PN ---
Physical Exam: SUBJECTIVE: Patient seen and examined OBJECTIVE: Vital Signs Period Temp Pulse Resp BP Sys/Parra Pulse Ox Last 24 Hr 98.0 F-98.9 F 65-108 17-22 97-106/51-61 94-99 GENERAL: The patient is awake, alert, and fully oriented, in no acute distress. HEAD: Normal with no signs of trauma. EYES: PERRL, extraocular movements intact, sclera anicteric, conjunctiva clear. No ptosis. ENT: Ears normal, nares patent, oropharynx clear without exudates, moist mucous membranes. NECK: Trachea midline, full range of motion, supple. LUNGS: Breath sounds equal, clear to auscultation bilaterally, no wheezes, no crackles, no accessory muscle use. HEART: Regular rate and rhythm, S1, S2 without murmur, rub or gallop. ABDOMEN: Soft, nontender, nondistended, normoactive bowel sounds, no guarding, no rebound, no hepatosplenomegaly, no masses. EXTREMITIES: 2+ pulses, warm, well-perfused, no edema. NEUROLOGICAL: Cranial nerves II through XII grossly intact. Normal speech, gait not observed. PSYCH: Normal mood, normal affect. SKIN: Warm, dry, normal turgor, no rashes or lesions noted Laboratory Results - last 24 hr 01/05/19 01/05/19 01/06/19 06:25 16:20 12:20 WBC 8.6 RBC 3.71 Hgb 11.8 Hct 35.1 MCV 94.5 MCH 31.8 MCHC 33.7 RDW 13.1 Plt Count 217 MPV 8.6 Absolute Neuts (auto) 6.7 Neutrophils % 78.0 Lymphocytes % 10.7 Monocytes % 8.7 Eosinophils % 2.0 Basophils % 0.6 Troponin I 1.08 H* 0.85 H* Active Medications Generic Name Dose Route Start Last Admin Trade Name Freq PRN Reason Stop Dose Admin Acetaminophen 650 mg 01/05/19 12:44 01/05/19 21:48 Tylenol - PO 650 mg Q6H PRN Administration PAIN LEVEL 1-5 Aspirin 81 mg 01/05/19 15:15 01/06/19 09:09 Asa - PO 81 mg DAILY ROIBN Administration Enoxaparin Sodium 40 mg 01/05/19 15:45 01/06/19 09:09 Lovenox - SQ 40 mg DAILY ROBIN Administration Piperacillin Sod/Tazobactam 50 mls @ 100 mls/hr 01/05/19 10:00 01/06/19 09:08 Sod 3.375 gm/ Dextrose IVPB 100 mls/hr Q8H-IV ROBIN Administration Protocol ASSESSMENT/PLAN:
[2019-01-06 13:51] LABS: ALBUMIN 2.5 g/dl (3.4-5.0); BILIRUBIN,TOTAL 0.8 mg/dl (0.2-1); CREATININE 0.8 mg/dl (0.55-1.3); MAGNESIUM 1.8 mg/dL (1.8-2.4); POTASSIUM 3.9 mmol/L (3.5-5.1); TOT PROT 5.4 g/dl (6.4-8.2)
--- NOTE | 2019-01-06 14:01 | PN ---
Progress Note, Physician History of Present Illness: patient doing well no issues feels much better - Current Medication List Current Medications: Active Medications Acetaminophen (Tylenol -) 650 mg PO Q6H PRN PRN Reason: PAIN LEVEL 1-5 Last Admin: 01/05/19 21:48 Dose: 650 mg Aspirin (Asa -) 81 mg PO DAILY [facility] Last Admin: 01/06/19 09:09 Dose: 81 mg Enoxaparin Sodium (Lovenox -) 40 mg SQ DAILY [facility] Last Admin: 01/06/19 09:09 Dose: 40 mg Piperacillin Sod/Tazobactam (Sod 3.375 gm/ Dextrose) 50 mls @ 100 mls/hr IVPB Q8H-IV ROBIN; Protocol Last Admin: 01/06/19 09:08 Dose: 100 mls/hr - Objective Vital Signs: Vital Signs Temperature 98.5 F 01/06/19 06:00 Pulse Rate 65 01/06/19 06:00 Respiratory Rate 18 01/06/19 09:00 Blood Pressure 101/59 L 01/06/19 06:00 O2 Sat by Pulse Oximetry (%) 94 L 01/06/19 09:00 Constitutional: Yes: No Distress, Calm Cardiovascular: Yes: Regular Rate and Rhythm Respiratory: Yes: Regular, CTA Bilaterally, On Nasal O2 Gastrointestinal: Yes: Normal Bowel Sounds, Soft Musculoskeletal: Yes: WNL Extremities: Yes: WNL Neurological: Yes: Alert, Oriented Psychiatric: Yes: Alert, Oriented Labs: CBC, BMP 01/06/19 12:20 01/06/19 12:20 INR, PTT INR 1.39 (0.82-1.09) H 01/04/19 12:15 Assessment/Plan 73 year-old female with a PMH significant for HTN, CAD s/p stent, left ankle ORIF (September 2018), and c. diff (October 2018). Patient brought by EMS to ED following syncopal episode and fall at home. Admitted for severe sepsis secondary to pyelonephritis. Severe sepsis secondary to acute left-sided pyelonephritis and acute left-sided pyelitis Left ureteral calculus E. coli bacteremia Syncope Coronary artery disease Right leg laceration plan continue abx await for finalization of the cx resp support rest as per the team
--- NOTE | 2019-01-06 14:33 | ECHO ---
Name: VIBHA WHITAKER Exam:Adult Echocardiogram Study Date: 01/06/2019 12:39 PM Age: 73 yrs Reason For Study: r/o acs elevated troponin Height: 65 in Weight: 176 lb BSA: 1.9 m2 MMode/2D Measurements & Calculations IVSd: 0.74 cm Ao root diam: 3.2 cm LVIDd: 4.2 cm LA dimension: 2.6 cm LVIDs: 3.1 cm LVPWd: 0.89 cm LVPWs: 1.0 cm EDV(Teich): 80.6 ml ESV(Teich): 37.2 ml LVOT diam: 1.7 cm Doppler Measurements & Calculations MV E max jose alejandro: 72.6 cm/sec MV A max jose alejandro: 100.8 cm/sec MV dec slope: 380.9 cm/sec2 MV E/A: 0.72 Ao V2 max: 171.8 cm/sec LV V1 max P.6 mmHg Ao max P.0 mmHg LV V1 mean P.1 mmHg Ao V2 mean: 114.6 cm/sec LV V1 max: 128.0 cm/sec Ao mean P.7 mmHg LV V1 mean: 81.1 cm/sec Ao V2 VTI: 35.6 cm LV V1 VTI: 23.7 cm ISAIAH(I,D): 1.6 cm2 ISAIAH(V,D): 1.7 cm2 MR max jose alejandro: 502.0 cm/sec SV(LVOT): 55.6 ml MR max P.8 mmHg TR max jose alejandro: 272.7 cm/sec PA V2 max: 98.5 cm/sec TR max P.9 mmHg PA max P.9 mmHg Left Ventricle Left ventricular systolic function is normal. Ejection Fraction = 55-60%. The transmitral spectral Do ppler flow pattern is suggestive of impaired LV relaxation. Right Ventricle The right ventricle is normal in size and function. Atria Normal left and right atrial size and function. Mitral Valve The mitral valve is normal in structure and function. There is no mitral valve stenosis. There is mil d mitral regurgitation. Tricuspid Valve The tricuspid valve is normal in structure and function. There is mild tricuspid regurgitation. Right ventricular systolic pressure is elevated at 30-40mmHg. Aortic Valve The aortic valve opens well. No hemodynamically significant valvular aortic stenosis. No aortic regur gitation is present. Pulmonic Valve The pulmonic valve is not well seen, but is grossly normal. There is no pulmonic valvular stenosis. T here is no pulmonic valvular regurgitation. Great Vessels The aortic root is normal size. Pericardium/Pleura Trivial pericardial effusion not hemodynamically significant. Interpretation Summary Left ventricular systolic function is normal. Ejection Fraction = 55-60%. The transmitral spectral Doppler flow pattern is suggestive of impaired LV relaxation. The right ventricle is normal in size and function. There is mild mitral regurgitation. There is mild tricuspid regurgitation. Right ventricular systolic pressure is elevated at 30-40mmHg. Trivial pericardial effusion not hemodynamically significant MD Gaxiola *Rico 01/06/2019 02:32 PM
--- NOTE | 2019-01-06 15:12 | PN ---
Progress Note (short form) - Note Progress Note: s: Current Medications Acetaminophen (Tylenol -) 650 mg PO Q6H PRN PRN Reason: PAIN LEVEL 1-5 Last Admin: 01/05/19 21:48 Dose: 650 mg Aspirin (Asa -) 81 mg PO DAILY [facility] Last Admin: 01/06/19 09:09 Dose: 81 mg Enoxaparin Sodium (Lovenox -) 40 mg SQ DAILY ROBIN Last Admin: 01/06/19 09:09 Dose: 40 mg Piperacillin Sod/Tazobactam (Sod 3.375 gm/ Dextrose) 50 mls @ 100 mls/hr IVPB Q8H-IV ROBIN; Protocol Last Admin: 01/06/19 09:08 Dose: 100 mls/hr Vital Signs Period Temp Pulse Resp BP Sys/Parra Pulse Ox Last 24 Hr 98.0 F-98.9 F 62-79 16-22 98-111/49-61 94-99 Constitutional: Yes: No Distress, Calm Eyes: Yes: Conjunctiva Clear, EOM Intact HENT: Yes: Atraumatic, Normocephalic Neck: Yes: Supple, Trachea Midline Respiratory: Yes: Regular, CTA Bilaterally Gastrointestinal: Yes: Normal Bowel Sounds, Soft Cardiovascular: Yes: Regular Rate and Rhythm JVD: No Heart Sounds: Yes: S1, S2 Extremities: No: Cold Edema: No Integumentary: No: Jaundice Neurological: Yes: Alert, Oriented Psychiatric: No: Agitated Assessment/Plan EKG: sinus tach, prolonged QTc, no ischemic changes echo 01/2019 nl LV function, impaired LV relaxation, RV nl, mild MR, mild TR, RVSP 30-40 mmHg, trivial pericardial effusion tele: sinus elevated troponin - likely demand in setting of sepsis - EKG no ischemic changes - echo nl LV function sepsis, pyelonephritis - abx per primary syncope - likely in setting of sepsis - echo pending - monitoring on tele CAD s/p stent - stent in 2017 at [facility] after abnormal stress testing, patient has regular follow up with outpatient epic willow analyst at [facility] - cont aspirin - on repatha as outpatient - has not taken recently as she was hospitalized for a few weeks - holding metoprolol in setting of low BPs
[2019-01-06] MEDS: ACETAMINOPHEN 325 MG TABLET (FP) PO PRN (17:05)
[2019-01-07] MEDS: PIPERACILLIN/TAZOB 3.375 GM 3.375 GM in DEXTROSE 5%-WATER - 50 ML IVPB SCH ×3 (01:13→17:08)
--- NOTE | 2019-01-07 08:39 | PN ---
Progress Note, Physician Chief Complaint: no complaints offered. Examined in bed History of Present Illness: 73 year-old female with a PMH significant for HTN, CAD s/p stent, left ankle ORIF (September 2018), and c. diff (October 2018). Patient brought by EMS to ED following syncopal episode and fall at home. Admitted for severe sepsis secondary to pyelonephritis. - Current Medication List Current Medications: Active Medications Acetaminophen (Tylenol -) 650 mg PO Q6H PRN PRN Reason: PAIN LEVEL 1-5 Last Admin: 01/06/19 17:05 Dose: 650 mg Aspirin (Asa -) 81 mg PO DAILY [facility] Last Admin: 01/06/19 09:09 Dose: 81 mg Enoxaparin Sodium (Lovenox -) 40 mg SQ DAILY [facility] Last Admin: 01/06/19 09:09 Dose: 40 mg Piperacillin Sod/Tazobactam (Sod 3.375 gm/ Dextrose) 50 mls @ 100 mls/hr IVPB Q8H-IV ROBIN; Protocol Last Admin: 01/07/19 01:13 Dose: 100 mls/hr - Objective Vital Signs: Vital Signs Temperature 98.0 F 01/07/19 06:00 Pulse Rate 68 01/07/19 06:00 Respiratory Rate 18 01/07/19 07:49 Blood Pressure 129/70 01/07/19 06:00 O2 Sat by Pulse Oximetry (%) 94 L 01/07/19 07:49 Constitutional: Yes: Well Nourished, No Distress, Calm Eyes: Yes: WNL, Conjunctiva Clear HENT: Yes: Normocephalic, Other (abrasion to face/nose) Neck: Yes: WNL, Supple, Trachea Midline Cardiovascular: Yes: WNL, Regular Rate and Rhythm Respiratory: Yes: WNL, Regular, CTA Bilaterally Gastrointestinal: Yes: WNL, Normal Bowel Sounds ...Rectal Exam: Yes: Deferred Genitourinary: Yes: WNL Breast(s): Yes: WNL Musculoskeletal: Yes: WNL Extremities: Yes: WNL Edema: Yes Edema: LLE: 2+, RLE: 1+ Peripheral Pulses WNL: Yes Peripheral Pulses: Left Radial: 2+, Right Radial: 2+, Left Doralis Pedis: 2+, Right Dorsalis Pedis: 2+, Left Femoral: 2+, Right Femoral: 2+ Integumentary: Yes: Laceration (sutures to right lower leg) Wound/Incision: Yes: Clean/Dry, Sutures Intact Neurological: Yes: WNL, Alert, Oriented Psychiatric: Yes: WNL Labs: INR, PTT INR 1.39 (0.82-1.09) H 01/04/19 12:15 - ....Imaging Cat Scan: Report Reviewed (A/P bibasilar atelectasis, no acute and pathology HCT :no acute pathology) Problem List - Problems (1) HTN (hypertension) Assessment/Plan: normotensive metoprolol on hold Code(s): I10 - ESSENTIAL (PRIMARY) HYPERTENSION (2) Stented coronary artery Assessment/Plan: c/w asa low fat/cholesterol diet troponins trended down to .85, most likely due to demand ischemia appreciate cardiology consultation Code(s): Z95.5 - PRESENCE OF CORONARY ANGIOPLASTY IMPLANT AND GRAFT (3) Status post ORIF of fracture of ankle Assessment/Plan: edema noted to left ankle elevate leg while in bed Physical therapy Code(s): Z98.890 - OTHER SPECIFIED POSTPROCEDURAL STATES; Z87.81 - PERSONAL HISTORY OF (HEALED) TRAUMATIC FRACTURE (4) C. difficile diarrhea Assessment/Plan: history of Code(s): A04.72 - ENTEROCOLITIS D/T CLOSTRIDIUM DIFFICILE, NOT SPCF RECUR (5) Prophylactic measure Assessment/Plan: FEN Fluids: PO intake adequate Electrolytes: replete as indicated Nutrition: regular diet DVT lovenox Dispo maintain as inpatient Full code discharge planning Code(s): Z29.9 - ENCOUNTER FOR PROPHYLACTIC MEASURES, UNSPECIFIED (6) Sepsis Assessment/Plan: ecoli bacteremia T102, HR 122, WBC 23.8k, lactic acid 5.1, and pyuria on admission BP stabilized, tachycardia resolved, lactic acid wnl afebrile CTAP: (1) left kidney acute pyelo; (2) left acute pyelitis; (3) two abscesses upper pole left kidney 1.7x1.3x0.7cm and 1x0.7cm; (4) 0.3cm calculus distal left ureter, no hydro BC and Ucx with Ecoli c/w Zosyn (day #3) appreciate ID consultation Code(s): A41.9 - SEPSIS, UNSPECIFIED ORGANISM Qualifiers: Sepsis type: sepsis due to unspecified organism Sepsis acute organ dysfunction status: without acute organ dysfunction Qualified Code(s): A41.9 - Sepsis, unspecified organism (7) CAD (coronary artery disease) Assessment/Plan: s/p stent in 2017 at [facility] after abnormal stress testing c/w asa troponin 0.57-->1.08-->.85. No nned to further trend, most likely due to demand ischemia serial ECGs: no sign of acute ischemia; prolonged QTc>600 TTE:EF 55-60%, mild MR/TR c/w telemetry monitoring appreciate cardiology consultation Code(s): I25.10 - ATHSCL HEART DISEASE OF [place] CORONARY ARTERY W/O ANG PCTRS (8) Leg laceration Assessment/Plan: monitor s/s infection; sutures out in 10 days (01/14) Code(s): S81.819A - LACERATION WITHOUT FOREIGN BODY, UNSP LOWER LEG, INIT ENCNTR Visit type - Emergency Visit Emergency Visit: Yes ED Registration Date: 01/04/19 Care time: The patient presented to the Emergency Department on the above date and was hospitalized for further evaluation of their emergent condition. - New Patient This patient is new to me today: Yes Date on this admission: 01/07/19 - Critical Care Critical Care patient: No - Discharge Referral Referred to [facility] Med P.C.: No
[2019-01-07 08:50] LABS: BASO % 2.4 % (0-2.0); EOS % 2.4 % (0-4.5); HEMATOCRIT 32.6 % (32.4-45.2); LYMPH % 9.9 % (8-40); MCHC 33.7 g/dl (32.0-36.0); MEAN CELL VOLUME 94.9 fl (80-96); MEAN PLT VOLUME 9.3 fl (7.5-11.1); MONO % 10.2 % (3.8-10.2); NEUT % 75.1 % (42.8-82.8); PLATELET COUNT 219 K/MM3 (134-434); RBC 3.43 M/mm3 (3.60-5.2); RDW 13.3 % (11.6-15.6); WHITE BLOOD COUNT 8.4 K/mm3 (4.0-10.8)
[2019-01-07] MEDS ORDERED: PIPERACILLIN/TAZOBACTAM 3.375 GM VIAL IVPB ONE ×2 (09:12→17:02)
[2019-01-07] MEDS ORDERED: DEXTROSE 5%-WATER - 50 ML IVPB ONE ×2 (09:12→17:02)
[2019-01-07 09:14] LABS: ALBUMIN 2.2 g/dl (3.4-5.0); BILIRUBIN,TOTAL 0.6 mg/dl (0.2-1); CALCIUM 8.8 mg/dl (8.5-10); CREATININE 0.6 mg/dl (0.55-1.3); MAGNESIUM 1.8 mg/dL (1.8-2.4); POTASSIUM 4.2 mmol/L (3.5-5.1); TOT PROT 4.9 g/dl (6.4-8.2)
[2019-01-07] MEDS: ENOXAPARIN NA (PORCINE) 40 MG/0.4 ML DISP.SYRIN SQ SCH (09:17)
[2019-01-07] MEDS: ASPIRIN 81 MG CHEWABLE TABLETS PO SCH (09:17)
--- NOTE | 2019-01-07 10:30 | PN ---
Progress Note, Physician History of Present Illness: stable but says she does not feel too good repeat blood cx negative wbc normalized - Current Medication List Current Medications: Active Medications Acetaminophen (Tylenol -) 650 mg PO Q6H PRN PRN Reason: PAIN LEVEL 1-5 Last Admin: 01/06/19 17:05 Dose: 650 mg Aspirin (Asa -) 81 mg PO DAILY [facility] Last Admin: 01/07/19 09:17 Dose: 81 mg Enoxaparin Sodium (Lovenox -) 40 mg SQ DAILY [facility] Last Admin: 01/07/19 09:17 Dose: 40 mg Piperacillin Sod/Tazobactam (Sod 3.375 gm/ Dextrose) 50 mls @ 100 mls/hr IVPB Q8H-IV ROBIN; Protocol Last Admin: 01/07/19 09:17 Dose: 100 mls/hr - Objective Vital Signs: Vital Signs Temperature 98.0 F 01/07/19 06:00 Pulse Rate 68 01/07/19 06:00 Respiratory Rate 18 01/07/19 07:49 Blood Pressure 129/70 01/07/19 06:00 O2 Sat by Pulse Oximetry (%) 94 L 01/07/19 07:49 Constitutional: Yes: No Distress, Calm Cardiovascular: Yes: S1, S2 Respiratory: Yes: Regular, CTA Bilaterally Gastrointestinal: Yes: Normal Bowel Sounds, Soft Musculoskeletal: Yes: WNL Extremities: Yes: Other (injury) Neurological: Yes: Alert, Oriented Psychiatric: Yes: Alert, Oriented Labs: CBC, BMP 01/07/19 07:32 01/07/19 07:32 INR, PTT INR 1.39 (0.82-1.09) H 01/04/19 12:15 Assessment/Plan 73 year-old female with a PMH significant for HTN, CAD s/p stent, left ankle ORIF (September 2018), and c. diff (October 2018). Patient brought by EMS to ED following syncopal episode and fall at home. Admitted for severe sepsis secondary to pyelonephritis. Severe sepsis secondary to acute left-sided pyelonephritis and acute left-sided pyelitis Left ureteral calculus E. coli bacteremia Syncope Coronary artery disease Right leg laceration plan continue abx still awaiting for finalization of the cx resp support rest as per the team
[2019-01-07] MEDS: ACETAMINOPHEN 325 MG TABLET (FP) PO PRN ×2 (12:57→21:42)
[2019-01-08] MEDS ORDERED: PIPERACILLIN/TAZOBACTAM 3.375 GM VIAL IVPB ONE ×4 (00:19→23:51)
[2019-01-08] MEDS ORDERED: DEXTROSE 5%-WATER - 50 ML IVPB ONE ×4 (00:20→23:51)
[2019-01-08] MEDS: PIPERACILLIN/TAZOB 3.375 GM 3.375 GM in DEXTROSE 5%-WATER - 50 ML IVPB SCH ×3 (01:46→17:38)
--- NOTE | 2019-01-08 08:13 | PN ---
Progress Note, Physician Chief Complaint: Patient ambulating to bathroom. States she feels "lousy" but better than yesterday History of Present Illness: 73 year-old female with a PMH significant for HTN, CAD s/p stent, left ankle ORIF (September 2018), and c. diff (October 2018). Patient brought by EMS to ED following syncopal episode and fall at home. Admitted for severe sepsis secondary to pyelonephritis. - Current Medication List Current Medications: Active Medications Acetaminophen (Tylenol -) 650 mg PO Q6H PRN PRN Reason: PAIN LEVEL 1-5 Last Admin: 01/07/19 21:42 Dose: 650 mg Aspirin (Asa -) 81 mg PO DAILY [facility] Last Admin: 01/07/19 09:17 Dose: 81 mg Enoxaparin Sodium (Lovenox -) 40 mg SQ DAILY [facility] Last Admin: 01/07/19 09:17 Dose: 40 mg Piperacillin Sod/Tazobactam (Sod 3.375 gm/ Dextrose) 50 mls @ 100 mls/hr IVPB Q8H-IV ROBIN; Protocol Last Admin: 01/08/19 01:46 Dose: 100 mls/hr - Objective Vital Signs: Vital Signs Temperature 98.3 F 01/08/19 06:00 Pulse Rate 68 01/08/19 06:00 Respiratory Rate 18 01/08/19 06:00 Blood Pressure 138/70 01/08/19 06:00 O2 Sat by Pulse Oximetry (%) 95 01/08/19 06:00 Constitutional: Yes: Well Nourished, No Distress, Calm Eyes: Yes: WNL, Conjunctiva Clear, EOM Intact HENT: Yes: WNL, Atraumatic, Normocephalic, Other (abrasion to face/nose) Neck: Yes: WNL, Supple, Trachea Midline Cardiovascular: Yes: WNL, Regular Rate and Rhythm Respiratory: Yes: WNL Gastrointestinal: Yes: WNL, Normal Bowel Sounds ...Rectal Exam: Yes: Deferred Genitourinary: Yes: WNL Breast(s): Yes: WNL Musculoskeletal: Yes: WNL Extremities: Yes: WNL Edema: No Edema: LLE: 2+, RLE: 1+ Peripheral Pulses WNL: Yes Peripheral Pulses: Left Radial: 2+, Right Radial: 2+, Left Doralis Pedis: 2+, Right Dorsalis Pedis: 2+, Left Femoral: 2+, Right Femoral: 2+ Integumentary: Yes: Laceration (sutures to right lower leg) Wound/Incision: Yes: Sutures Intact Neurological: Yes: WNL, Alert, Oriented ...Motor Strength: WNL Psychiatric: Yes: WNL Labs: CBC, BMP 01/07/19 07:32 01/07/19 07:32 INR, PTT INR 1.39 (0.82-1.09) H 01/04/19 12:15 - ....Imaging Cat Scan: Report Reviewed (A/P bibasilar atelectasis, no acute and pathology HCT :no acute pathology) Problem List - Problems (1) HTN (hypertension) Assessment/Plan: normotensive metoprolol on hold Problems reviewed: Yes Code(s): I10 - ESSENTIAL (PRIMARY) HYPERTENSION (2) Stented coronary artery Assessment/Plan: c/w asa low fat/cholesterol diet troponins trended down to .85, most likely due to demand ischemia appreciate cardiology consultation Problems reviewed: Yes Code(s): Z95.5 - PRESENCE OF CORONARY ANGIOPLASTY IMPLANT AND GRAFT (3) Status post ORIF of fracture of ankle Assessment/Plan: edema noted to left ankle elevate leg while in bed Physical therapy Problems reviewed: Yes Code(s): Z98.890 - OTHER SPECIFIED POSTPROCEDURAL STATES; Z87.81 - PERSONAL HISTORY OF (HEALED) TRAUMATIC FRACTURE (4) C. difficile diarrhea Assessment/Plan: history of, no active diarrhea Code(s): A04.72 - ENTEROCOLITIS D/T CLOSTRIDIUM DIFFICILE, NOT SPCF RECUR (5) Prophylactic measure Assessment/Plan: FEN Fluids: PO intake adequate Electrolytes: replete as indicated Nutrition: regular diet DVT lovenox Dispo maintain as inpatient Full code discharge planning Code(s): Z29.9 - ENCOUNTER FOR PROPHYLACTIC MEASURES, UNSPECIFIED (6) Sepsis Assessment/Plan: ecoli bacteremia T102, HR 122, WBC 23.8k, lactic acid 5.1, and pyuria on admission BP stabilized, tachycardia resolved, lactic acid wnl remains afebrile, wbc 7 CTAP: (1) left kidney acute pyelo; (2) left acute pyelitis; (3) two abscesses upper pole left kidney 1.7x1.3x0.7cm and 1x0.7cm; (4) 0.3cm calculus distal left ureter, no hydro BC and Ucx with Ecoli 01/04. BC 01/06 NGTD c/w Zosyn (day #4) appreciate ID consultation Code(s): A41.9 - SEPSIS, UNSPECIFIED ORGANISM Qualifiers: Sepsis type: sepsis due to unspecified organism Sepsis acute organ dysfunction status: without acute organ dysfunction Qualified Code(s): A41.9 - Sepsis, unspecified organism (7) CAD (coronary artery disease) Assessment/Plan: s/p stent in 2017 at [facility] after abnormal stress testing c/w asa troponin 0.57-->1.08-->.85. No need to further trend, most likely due to demand ischemia serial ECGs: no sign of acute ischemia; prolonged QTc>600, repeat 453 avoid QT prolonging agents TTE:EF 55-60%, mild MR/TR c/w telemetry monitoring appreciate cardiology consultation Problems reviewed: Yes Code(s): I25.10 - ATHSCL HEART DISEASE OF [place] CORONARY ARTERY W/O ANG PCTRS (8) Leg laceration Assessment/Plan: monitor s/s infection; sutures out in 10 days (01/14) Problems reviewed: Yes Code(s): S81.819A - LACERATION WITHOUT FOREIGN BODY, UNSP LOWER LEG, INIT ENCNTR Visit type - Emergency Visit Emergency Visit: Yes ED Registration Date: 01/04/19 Care time: The patient presented to the Emergency Department on the above date and was hospitalized for further evaluation of their emergent condition. - New Patient This patient is new to me today: No - Critical Care Critical Care patient: No - Discharge Referral Referred to [facility] Med P.C.: No
[2019-01-08 09:21] LABS: BASO % 1.4 % (0-2.0); EOS % 3.2 % (0-4.5); HEMATOCRIT 32.5 % (32.4-45.2); LYMPH % 14.8 % (8-40); MCH 32.1 pg (25.7-33.7); MCHC 33.9 g/dl (32.0-36.0); MEAN CELL VOLUME 94.8 fl (80-96); MEAN PLT VOLUME 10.8 fl (7.5-11.1); MONO % 11.5 % (3.8-10.2); NEUT % 69.1 % (42.8-82.8); PLATELET COUNT 257 K/MM3 (134-434); RBC 3.43 M/mm3 (3.60-5.2); RDW 13.1 % (11.6-15.6); WHITE BLOOD COUNT 7.4 K/mm3 (4.0-10.8)
[2019-01-08 09:23] LABS: ALBUMIN 2.3 g/dl (3.4-5.0); BILIRUBIN,TOTAL 0.6 mg/dl (0.2-1); CALCIUM 8.9 mg/dl (8.5-10); CREATININE 0.6 mg/dl (0.55-1.3); MAGNESIUM 1.8 mg/dL (1.8-2.4); POTASSIUM 3.9 mmol/L (3.5-5.1)
[2019-01-08] MEDS: ACETAMINOPHEN 325 MG TABLET (FP) PO PRN (09:33)
[2019-01-08] MEDS: ASPIRIN 81 MG CHEWABLE TABLETS PO SCH (09:34)
[2019-01-08] MEDS: ENOXAPARIN NA (PORCINE) 40 MG/0.4 ML DISP.SYRIN SQ SCH (09:34)
--- NOTE | 2019-01-08 11:04 | PN ---
Progress Note, Physician History of Present Illness: stable no new issues - Current Medication List Current Medications: Active Medications Acetaminophen (Tylenol -) 650 mg PO Q6H PRN PRN Reason: PAIN LEVEL 1-5 Last Admin: 01/08/19 09:33 Dose: 650 mg Aspirin (Asa -) 81 mg PO DAILY [facility] Last Admin: 01/08/19 09:34 Dose: 81 mg Bacitracin (Bacitracin -) 1 applic TP BID [facility]IN Enoxaparin Sodium (Lovenox -) 40 mg SQ DAILY [facility] Last Admin: 01/08/19 09:34 Dose: 40 mg Piperacillin Sod/Tazobactam (Sod 3.375 gm/ Dextrose) 50 mls @ 100 mls/hr IVPB Q8H-IV ROBIN; Protocol Last Admin: 01/08/19 09:34 Dose: 100 mls/hr - Objective Vital Signs: Vital Signs Temperature 98.1 F 01/08/19 10:00 Pulse Rate 72 01/08/19 10:00 Respiratory Rate 20 01/08/19 10:00 Blood Pressure 132/74 01/08/19 10:00 O2 Sat by Pulse Oximetry (%) 95 01/08/19 06:00 Constitutional: Yes: No Distress, Calm Cardiovascular: Yes: S1, S2 Respiratory: Yes: Regular, CTA Bilaterally Gastrointestinal: Yes: Normal Bowel Sounds, Soft Musculoskeletal: Yes: WNL Extremities: Yes: Other Neurological: Yes: Alert, Oriented Psychiatric: Yes: Alert, Oriented Labs: CBC, BMP 01/08/19 05:45 01/08/19 05:45 INR, PTT INR 1.39 (0.82-1.09) H 01/04/19 12:15 Assessment/Plan 73 year-old female with a PMH significant for HTN, CAD s/p stent, left ankle ORIF (September 2018), and c. diff (October 2018). Patient brought by EMS to ED following syncopal episode and fall at home. Admitted for severe sepsis secondary to pyelonephritis. Severe sepsis secondary to acute left-sided pyelonephritis and acute left-sided pyelitis Left ureteral calculus E. coli bacteremia Syncope Coronary artery disease Right leg laceration plan continue abx still awaiting for finalization of the cx resp support rest as per the team
[2019-01-08] MEDS: BACITRACIN 15 GM TUBE TOPICAL OINTMENT TP SCH ×2 (11:25→21:29)
[2019-01-09] MEDS: PIPERACILLIN/TAZOB 3.375 GM 3.375 GM in DEXTROSE 5%-WATER - 50 ML IVPB SCH ×2 (01:30→10:09)
[2019-01-09] MEDS: ACETAMINOPHEN 325 MG TABLET (FP) PO PRN ×2 (03:19→13:08)
--- NOTE | 2019-01-09 08:11 | DS ---
Physical Exam: SUBJECTIVE: Patient seen and examined OBJECTIVE: Vital Signs Period Temp Pulse Resp BP Sys/Parra Pulse Ox Last 24 Hr 97.8 F-98.7 F 66-75 16-20 120-132/58-74 95-95 PHYSICAL EXAM GENERAL: The patient is awake, alert, and fully oriented, in no acute distress. HEAD: Normal with no signs of trauma. EYES: PERRL, extraocular movements intact, sclera anicteric, conjunctiva clear. ENT: Ears normal, nares patent, oropharynx clear without exudates, moist mucous membranes. NECK: Trachea midline, full range of motion, supple. LUNGS: Breath sounds equal, clear to auscultation bilaterally, no wheezes, no crackles, no accessory muscle use. HEART: Regular rate and rhythm, S1, S2 without murmur, rub or gallop. ABDOMEN: Soft, nontender, nondistended, normoactive bowel sounds, no guarding, no rebound, no hepatosplenomegaly, no masses. EXTREMITIES: 2+ pulses, warm, well-perfused, no edema. NEUROLOGICAL: Cranial nerves II through XII grossly intact. Normal speech, gait not observed. PSYCH: Normal mood, normal affect. SKIN: Warm, dry, normal turgor, no rashes or lesions noted. LABS Laboratory Results - last 24 hr 01/08/19 01/08/19 05:45 05:45 WBC 7.4 RBC 3.43 L Hgb 11.0 Hct 32.5 MCV 94.8 MCH 32.1 MCHC 33.9 RDW 13.1 Plt Count 257 MPV 10.8 Absolute Neuts (auto) 5.1 Neutrophils % 69.1 Lymphocytes % 14.8 Monocytes % 11.5 H Eosinophils % 3.2 Basophils % 1.4 Sodium 141 Potassium 3.9 Chloride 108 H Carbon Dioxide 25 Anion Gap 8 BUN 12.0 Creatinine 0.6 Est GFR (CKD-EPI)AfAm 104.07 Est GFR (CKD-EPI)NonAf 89.79 Random Glucose 81 Calcium 8.9 Magnesium 1.8 Total Bilirubin 0.6 AST 40 H ALT 44 Alkaline Phosphatase 50 Total Protein 5.0 L Albumin 2.3 L HOSPITAL COURSE: Date of Admission:01/04/19 Date of Discharge: 01/09/19 Discharge Summary Problems reviewed: Yes Reason For Visit: ELEVATED TROPONIN LEVEL,SYNCOPE AND COLLAPSE,SEPSI Current Active Problems C. difficile diarrhea (Acute) CAD (coronary artery disease) (Acute) Elevated troponin I level (Acute) Fall (Acute) HTN (hypertension) (Acute) Leg laceration (Acute) Prophylactic measure (Acute) Sepsis (Acute) Status post ORIF of fracture of ankle (Acute) Stented coronary artery (Acute) Syncope (Acute) Condition: Good - Instructions - Home Medications Comprehensive Discharge Medication List: Ambulatory Orders Metoprolol Succinate [Toprol Xl] 25 mg PO HS 01/04/19 Aspirin [ASA -] 81 mg PO DAILY 01/05/19 - Discharge Referral Referred to [facility] Med P.C.: No
[2019-01-09] MEDS ORDERED: PIPERACILLIN/TAZOBACTAM 3.375 GM VIAL IVPB ONE (09:13)
[2019-01-09] MEDS ORDERED: DEXTROSE 5%-WATER - 50 ML IVPB ONE (09:14)
[2019-01-09] MEDS ORDERED: ONDANSETRON 4 MG/2 ML VIAL IVPUSH ONE (09:22)
[2019-01-09] MEDS ORDERED: ONDANSETRON 4 MG/2 ML VIAL IVPUSH PRN (09:22)
--- NOTE | 2019-01-09 10:00 | PN ---
Physical Exam: SUBJECTIVE: Patient seen and examined at [facility]. Feels nauseous, "punky." Having diarrhea, 2-3 episodes per day for several days. OBJECTIVE: Vital Signs Period Temp Pulse Resp BP Sys/Parra Pulse Ox Last 24 Hr 97.8 F-98.7 F 66-75 16-20 120-132/58-74 95-95 GENERAL: The patient is awake, alert, and fully oriented, in no acute distress. Weak appearing. LUNGS: CTA HEART: RRR, S1, S2 ABDOMEN: Soft, nontender, nondistended EXTREMITIES: 2+ pulses, warm, well-perfused, no edema. RLE: dressing c/d/i; wound not visualized today NEUROLOGICAL: Cranial nerves II through XII grossly intact. Normal speech, steady gait observed earlier SKIN: Warm, dry, normal turgor. Active Medications Generic Name Dose Route Start Last Admin Trade Name Freq PRN Reason Stop Dose Admin Acetaminophen 650 mg 01/05/19 12:44 01/09/19 03:19 Tylenol - PO 650 mg Q6H PRN Administration PAIN LEVEL 1-5 Aspirin 81 mg 01/05/19 15:15 01/08/19 09:34 Asa - PO 81 mg DAILY ROBIN Administration Bacitracin 1 applic 01/08/19 10:30 01/08/19 21:29 Bacitracin - TP 1 applic BID ROBIN Administration Enoxaparin Sodium 40 mg 01/05/19 15:45 01/08/19 09:34 Lovenox - SQ 40 mg DAILY ROBIN Administration Piperacillin Sod/Tazobactam 50 mls @ 100 mls/hr 01/05/19 10:00 01/09/19 01:30 Sod 3.375 gm/ Dextrose IVPB 100 mls/hr Q8H-IV ROBIN Administration Protocol Sodium Chloride 1,000 mls @ 75 mls/hr 01/09/19 09:30 Normal Saline - IV ASDIR ROBIN Ondansetron HCl 4 mg 01/09/19 09:22 Zofran Injection IVPUSH Q6H PRN NAUSEA AND/OR VOMITING ASSESSMENT/PLAN 73 year-old female with a PMH significant for HTN, CAD s/p stent (2016), left ankle ORIF (September 2018), and c. diff (October 2018). Patient brought by EMS to ED following syncopal episode and fall at home. Admitted for severe sepsis secondary to pyelonephritis. Severe sepsis secondary to acute left-sided pyelonephritis and acute left-sided pyelitis Left ureteral calculus E. coli bacteremia --afebrile, WBC trended to wnl; BP stabilized, tachycardia resolved, lactic acid wnl --CTAP: (1) left kidney acute pyelo; (2) left acute pyelitis; (3) two abscesses upper pole left kidney; (4) 0.3cm calculus distal left ureter, no hydro --01/04 Blood culture 1 out of 2 (+) E. coli --01/04 Urine culture (+) E. coli --01/06 Blood culture x 2: NGTD --continue Zosyn (day #6) --ID following Diarrhea Nausea --diarrhea for several days as per patient --c.diff, occult stool, stool cx --IV fluids --Zofran PRN Syncope Coronary artery disease s/p stent --troponin 0.57-->1.08-->0.85, likely demand ischemia from severe sepsis --serial ECGs: no sign of acute ischemia --01/06: LV normal, EF 55-60%, impaired LV relaxation; RV normal; mild MR; mild TR; pHTN --telemetry monitoring: no events --continue home ASA --will restart home Toprol XL as blood pressure has been stable --cardiology following Right leg laceration --monitor s/s infection; sutures out on 01/14 Left ankle fracture s/p ORIF --has been in rehab, goes to PT, on disability and expected to go back to work on 02/03 --uses a walker at baseline, at home switches to cane --working daily with PT here FEN Fluids: PO intake adequate Electrolytes: replete as indicated Nutrition: regular diet DVT prophylaxis: subq lovenox Physical therapy Dispo: continues to require inpatient care. Full code. Visit type - Emergency Visit Emergency Visit: Yes ED Registration Date: 01/04/19 Care time: The patient presented to the Emergency Department on the above date and was hospitalized for further evaluation of their emergent condition. - New Patient This patient is new to me today: No - Critical Care Critical Care patient: No
[2019-01-09] MEDS: SODIUM CHLORIDE 1,000 ML IV SCH (10:09)
[2019-01-09] MEDS: ASPIRIN 81 MG CHEWABLE TABLETS PO SCH (10:09)
[2019-01-09] MEDS: ENOXAPARIN NA (PORCINE) 40 MG/0.4 ML DISP.SYRIN SQ SCH (10:09)
[2019-01-09] MEDS: BACITRACIN 15 GM TUBE TOPICAL OINTMENT TP SCH ×2 (10:10→21:35)
--- NOTE | 2019-01-09 13:06 | PN ---
Progress Note, Physician - Current Medication List Current Medications: Active Medications Acetaminophen (Tylenol -) 650 mg PO Q6H PRN PRN Reason: PAIN LEVEL 1-5 Last Admin: 01/09/19 03:19 Dose: 650 mg Aspirin (Asa -) 81 mg PO DAILY [facility] Last Admin: 01/09/19 10:09 Dose: 81 mg Bacitracin (Bacitracin -) 1 applic TP BID [facility] Last Admin: 01/09/19 10:10 Dose: 1 applic Enoxaparin Sodium (Lovenox -) 40 mg SQ DAILY [facility] Last Admin: 01/09/19 10:09 Dose: 40 mg Piperacillin Sod/Tazobactam (Sod 3.375 gm/ Dextrose) 50 mls @ 100 mls/hr IVPB Q8H-IV ROBIN; Protocol Last Admin: 01/09/19 10:09 Dose: 100 mls/hr Sodium Chloride (Normal Saline -) 1,000 mls @ 75 mls/hr IV ASDIR [facility]IN Last Admin: 01/09/19 10:09 Dose: 75 mls/hr Metoprolol Succinate (Toprol Xl -) 25 mg PO HS ROBIN Ondansetron HCl (Zofran Injection) 4 mg IVPUSH Q6H PRN PRN Reason: NAUSEA AND/OR VOMITING - Objective Vital Signs: Vital Signs Temperature 97.8 F 01/09/19 10:00 Pulse Rate 72 01/09/19 10:00 Respiratory Rate 18 01/09/19 10:00 Blood Pressure 148/68 01/09/19 10:00 O2 Sat by Pulse Oximetry (%) 100 01/09/19 10:00 Labs: CBC, BMP 01/08/19 05:45 01/08/19 05:45 INR, PTT INR 1.39 (0.82-1.09) H 01/04/19 12:15
--- NOTE | 2019-01-09 13:35 | PN ---
Progress Note, Physician - Current Medication List Current Medications: Active Medications Acetaminophen (Tylenol -) 650 mg PO Q6H PRN PRN Reason: PAIN LEVEL 1-5 Last Admin: 01/09/19 13:08 Dose: 650 mg Aspirin (Asa -) 81 mg PO DAILY [facility] Last Admin: 01/09/19 10:09 Dose: 81 mg Bacitracin (Bacitracin -) 1 applic TP BID [facility] Last Admin: 01/09/19 10:10 Dose: 1 applic Enoxaparin Sodium (Lovenox -) 40 mg SQ DAILY [facility] Last Admin: 01/09/19 10:09 Dose: 40 mg Piperacillin Sod/Tazobactam (Sod 3.375 gm/ Dextrose) 50 mls @ 100 mls/hr IVPB Q8H-IV ROBIN; Protocol Last Admin: 01/09/19 10:09 Dose: 100 mls/hr Sodium Chloride (Normal Saline -) 1,000 mls @ 75 mls/hr IV ASDIR ROBIN Last Admin: 01/09/19 10:09 Dose: 75 mls/hr Metoprolol Succinate (Toprol Xl -) 25 mg PO HS ROBIN Ondansetron HCl (Zofran Injection) 4 mg IVPUSH Q6H PRN PRN Reason: NAUSEA AND/OR VOMITING - Objective Vital Signs: Vital Signs Temperature 97.8 F 01/09/19 10:00 Pulse Rate 72 01/09/19 10:00 Respiratory Rate 18 01/09/19 10:00 Blood Pressure 148/68 01/09/19 10:00 O2 Sat by Pulse Oximetry (%) 100 01/09/19 10:00 Labs: CBC, BMP 01/08/19 05:45 01/08/19 05:45 INR, PTT INR 1.39 (0.82-1.09) H 01/04/19 12:15
[2019-01-09] MEDS ORDERED: metoPROLOL SUCCINATE 25 MG TAB.SR.24H (FP) PO SCH (22:00)
[2019-01-10] MEDS: ACETAMINOPHEN 325 MG TABLET (FP) PO PRN ×2 (00:03→10:26)
--- NOTE | 2019-01-10 08:44 | DS ---
Physical Exam: SUBJECTIVE: Patient seen and examined oob to chair. No diarrhea. Feels better, stronger. Anxious about going home. OBJECTIVE: Vital Signs Period Temp Pulse Resp BP Sys/Parra Pulse Ox Last 24 Hr 97.8 F-98.5 F 66-74 18-18 117-148/54-68 94-100 PHYSICAL EXAM GENERAL: The patient is awake, alert, and fully oriented, in no acute distress. LUNGS: CTA HEART: RRR, S1, S2 ABDOMEN: Soft, nontender, nondistended EXTREMITIES: 2+ pulses, warm, well-perfused, no edema. RLE: dressing c/d/i; wound not visualized today NEUROLOGICAL: Cranial nerves II through XII grossly intact. Normal speech, steady gait observed earlier SKIN: Warm, dry, normal turgor. LABS Laboratory Results - last 24 hr 01/09/19 10:15 Stool Occult Blood Trace HOSPITAL COURSE: Date of Admission:01/04/19 Date of Discharge: 01/10/19 Pre hospital course 73 year-old female with a PMH significant for HTN, CAD s/p stent, left ankle ORIF (September 2018), and c. diff (October 2018). Patient brought by EMS to ED following syncopal episode and fall at home. Patient reports this past weekend attended a wedding on [place], a 3 1/[address], returning on Wednesday. She felt unusually tired but no other symptoms. On Wednesday, she became profoundly fatigued and spent the day in bed and felt she lost track of time. She had one or two episodes of chills. This morning patient went into the bathroom to take a shower and the next thing she recalls was waking up on the floor, half in the tub, half out, with abrasions and a laceration on her right leg. Her son called EMS. Patient denies nausea, vomiting, diarrhea. Denies chest pain, palpitations, SOB, MCMANUS, orthopnea, lower extremity edema. Denies dysuria, urgency, frequency, hematuria. Denies headache, dizziness, lightheadedness. ER course (1) T102, p122, WBC 23.8k, lactic acid 5.1 (2) Urine >100 WBCs Subsequent hospital course Severe sepsis secondary to acute left-sided pyelonephritis E. coli bacteremia --CTAP: (1) left kidney acute pyelo; (2) left acute pyelitis; (3) two abscesses upper pole left kidney; (4) 0.3cm calculus distal left ureter, nonobstructing, no hydro --met severe sepsis criteria on admission: T102, p122, WBC 23.8k, lactic acid 5.1, and pyuria --01/04 Blood culture 1 out of 2 (+) E. coli and urine culture (+) E. coli --course of Zosyn completed and surveillance blood cultures from 01/06 NGTD Diarrhea --stool cultures negative Syncope Coronary artery disease s/p stent --troponin 0.57-->1.08-->0.85, likely demand ischemia from severe sepsis --serial ECGs: no sign of acute ischemia --01/06: LV normal, EF 55-60%, impaired LV relaxation; RV normal; mild MR; mild TR; pHTN --telemetry monitoring: no events --continued ASA, ToprolXL Right leg laceration --wound healing nicely, sutures out on 01/14 Left ankle fracture s/p ORIF October 2018 --has been in rehab, goes to PT, on disability and expected to go back to work on 02/03 --uses a walker at baseline, at home switches to cane --working daily with PT here Minutes to complete discharge: 35 Discharge Summary Problems reviewed: Yes Reason For Visit: ELEVATED TROPONIN LEVEL,SYNCOPE AND COLLAPSE,SEPSI Current Active Problems C. difficile diarrhea (Acute) CAD (coronary artery disease) (Acute) Elevated troponin I level (Acute) Fall (Acute) HTN (hypertension) (Acute) Leg laceration (Acute) Prophylactic measure (Acute) Sepsis (Acute) Status post ORIF of fracture of ankle (Acute) Stented coronary artery (Acute) Syncope (Acute) Condition: Improved - Instructions Diet, Activity, Other Instructions: You completed a course of IV antibiotics for severe sepsis secondary to pyelonephritis. It is recommended you follow up with your primary care provider , Dr. Morgan, within one week of your discharge. Return to the emergency department for any new or worsening symptoms. Referrals: Cyril Morgan MD [Non Staff, Medical] - 1 Week Disposition: HOME - Home Medications Comprehensive Discharge Medication List: Ambulatory Orders Metoprolol Succinate [Toprol Xl] 25 mg PO HS 01/04/19 Aspirin [ASA -] 81 mg PO DAILY 01/05/19 This patient is new to me today: No Emergency Visit: Yes ED Registration Date: 01/04/19 Care time: The patient presented to the Emergency Department on the above date and was hospitalized for further evaluation of their emergent condition. Critical Care patient: No - Discharge Referral Referred to [facility] No
[2019-01-10] MEDS: SODIUM CHLORIDE 1,000 ML IV SCH (10:24)
[2019-01-10] MEDS: ASPIRIN 81 MG CHEWABLE TABLETS PO SCH (10:25)
[2019-01-10] MEDS: BACITRACIN 15 GM TUBE TOPICAL OINTMENT TP SCH (10:25)
[2019-01-10] MEDS: ENOXAPARIN NA (PORCINE) 40 MG/0.4 ML DISP.SYRIN SQ SCH (10:26)
[2019-01-10 13:45] VITALS: BP 117/55; PULSE 76; TEMP 97.6
--- NOTE | 2019-01-10 15:05 | PN ---
Progress Note, Physician - Current Medication List Current Medications: Active Medications Acetaminophen (Tylenol -) 650 mg PO Q6H PRN PRN Reason: PAIN LEVEL 1-5 Last Admin: 01/10/19 10:26 Dose: 650 mg Aspirin (Asa -) 81 mg PO DAILY [facility] Last Admin: 01/10/19 10:25 Dose: 81 mg Bacitracin (Bacitracin -) 1 applic TP BID [facility] Last Admin: 01/10/19 10:25 Dose: 1 applic Enoxaparin Sodium (Lovenox -) 40 mg SQ DAILY [facility] Last Admin: 01/10/19 10:26 Dose: 40 mg Sodium Chloride (Normal Saline -) 1,000 mls @ 75 mls/hr IV ASDIR [facility] Last Admin: 01/10/19 10:24 Dose: 75 mls/hr Metoprolol Succinate (Toprol Xl -) 25 mg PO HS [facility] Last Admin: 01/09/19 21:34 Dose: 25 mg Ondansetron HCl (Zofran Injection) 4 mg IVPUSH Q6H PRN PRN Reason: NAUSEA AND/OR VOMITING - Objective Vital Signs: Vital Signs Temperature 97.6 F 01/10/19 13:43 Pulse Rate 76 01/10/19 13:43 Respiratory Rate 18 01/10/19 13:43 Blood Pressure 117/55 L 01/10/19 13:43 O2 Sat by Pulse Oximetry (%) 95 01/10/19 05:55 Labs: CBC, BMP 01/08/19 05:45 01/08/19 05:45 INR, PTT INR 1.39 (0.82-1.09) H 01/04/19 12:15
== END 2019-01-10 15:32 | disposition home or self-care (01) | DRG 872 ==
LOC: FER 12:12 → FM/S 16:01 → UNDODISIN 01-08 12:00
PROVIDERS: ADMIT Internal Medicine; ATTEND Nurse Practitioner Acute Care
PROC: 0HQKXZZ Repair Right Lower Leg Skin, External Approach (ICD-10-PCS; principal; 2019-01-04)
DX: A41.59 Other Gram-negative sepsis (principal); N39.0 Urinary tract infection, site not specified; A04.72 Enterocolitis due to Clostridium difficile, not specified as recurrent; J98.11 Atelectasis; S81.811A Laceration without foreign body, right lower leg, initial encounter; B96.20 Unspecified Escherichia coli [E. coli] as the cause of diseases classified elsewhere; R65.20 Severe sepsis without septic shock; I25.10 Atherosclerotic heart disease of native coronary artery without angina pectoris; R50.9 Fever, unspecified; N20.0 Calculus of kidney; R00.0 Tachycardia, unspecified; I10 Essential (primary) hypertension; R94.31 Abnormal electrocardiogram [ECG] [EKG]; Y92.091 Bathroom in other non-institutional residence as the place of occurrence of the external cause; Y99.8 Other external cause status; W18.39XA Other fall on same level, initial encounter; Z95.5 Presence of coronary angioplasty implant and graft; Z87.81 Personal history of (healed) traumatic fracture
CPT/HCPCS: 36415; 70450-TC; 71045-TC-FY; 71260-TC; 74176-TC; 74177-TC; 80053; 81003; 81015; 82272; 83605; 83735; 84484; 85025; 85610; 87040; 87045; 87046; 87086; 87186; 87324; 87449; 87899; 93005; 93306-TC; 93970-TC; 97116-GP; 97162-GP; 99285-25; J0131; J7030

== ENCOUNTER 2019-01-12 12:23 | Emergency (ER) | payer BC ==
--- NOTE | 2019-01-12 12:29 | PDOC ---
History of Present Illness <Navjot Plascencia - Last Filed: 01/12/19 16:57> <Yaron Monroe - Last Filed: 01/12/19 18:56> - General Chief Complaint: Urinary Problem Stated Complaint: freq urination Time Seen by Provider: 01/12/19 12:29 Past History <Navjot Plascencia - Last Filed: 01/12/19 16:57> - Past Medical History Cardiac Disorders: Yes (STENT X1) COPD: No Disorders: Yes (UROSEPSIS) HTN: Yes Kidney Stones: Yes (RENAL STENT) - Surgical History Orthopedic Surgery: Yes (left ankle surgery) - Psycho Social/Smoking Cessation Hx Smoking History: Never smoked Have you smoked in the past 12 months: No Hx Alcohol Use: Yes (SOCIAL) Drug/Substance Use Hx: No Substance Use Type: None Hx Substance Use Treatment: No <Yaron Monroe - Last Filed: 01/12/19 18:56> - Past Medical History Allergies/Adverse Reactions: Allergies Allergy/AdvReac Type Severity Reaction Status Date / Time No Known Drug Allergies Allergy Verified 01/12/19 12:25 Home Medications: Ambulatory Orders Metoprolol Succinate [Toprol Xl] 25 mg PO HS 01/04/19 Aspirin [ASA -] 81 mg PO DAILY 01/05/19 *Physical Exam - Vital Signs Last Vital Signs Temp Pulse Resp BP Pulse Ox 98.7 F 72 18 159/87 98 01/12/19 12:24 01/12/19 12:24 01/12/19 12:24 01/12/19 12:24 01/12/19 12:24 <Navjot Plascencia - Last Filed: 01/12/19 16:57> ED Treatment Course - LABORATORY CBC & Chemistry Diagram: 01/12/19 14:07 01/12/19 13:12 - ADDITIONAL ORDERS Additional order review: Laboratory Results 01/12/19 01/12/19 01/12/19 13:36 13:36 13:12 Sodium 136 Potassium 4.4 Chloride 106 Carbon Dioxide 27 Anion Gap 3 L BUN 8.0 Creatinine 0.6 Est GFR (CKD-EPI)AfAm 104.07 Est GFR (CKD-EPI)NonAf 89.79 Random Glucose 89 Calcium 9.6 Total Bilirubin 0.7 AST 20 ALT 36 Alkaline Phosphatase 77 D Creatine Kinase 27 Troponin I 0.03 Total Protein 6.2 L Albumin 2.9 L Urine Color Urine Appearance Urine pH Urine Protein Urine Glucose (UA) Urine Ketones Urine Blood Urine Nitrite Urine Bilirubin Urine Urobilinogen Ur Leukocyte Esterase Urine RBC Urine WBC Ur Transition Epith Cell Urine Bacteria 01/12/19 12:00 Sodium Potassium Chloride Carbon Dioxide Anion Gap BUN Creatinine Est GFR (CKD-EPI)AfAm Est GFR (CKD-EPI)NonAf Random Glucose Calcium Total Bilirubin AST ALT Alkaline Phosphatase Creatine Kinase Troponin I Total Protein Albumin Urine Color Yellow Urine Appearance Clear Urine pH 6.5 Urine Protein 2+ H Urine Glucose (UA) Negative Urine Ketones Negative Urine Blood Trace-intact Urine Nitrite Negative Urine Bilirubin Negative Urine Urobilinogen 0.2 Ur Leukocyte Esterase 1+ Urine RBC 2-5 Urine WBC 2-5 Ur Transition Epith Cell Few Urine Bacteria Rare 01/12/19 14:07 RBC 3.90 MCV 94.4 MCHC 32.6 RDW 13.6 MPV 8.4 Neutrophils % Regulatory Affairs Associate Lymphocytes % Regulatory Affairs Associate Monocytes % Regulatory Affairs Associate Eosinophils % Regulatory Affairs Associate Basophils % Regulatory Affairs Associate - Medications Given in the ED: ED Medications Discontinued Medications Generic Name Dose Route Start Last Admin Trade Name Tez PRN Reason Stop Dose Admin Acetaminophen 975 mg 01/12/19 13:08 01/12/19 14:25 Tylenol - PO 01/12/19 13:09 Not Given ONCE ONE Acetaminophen 1,000 mg 01/12/19 13:15 01/12/19 14:24 Ofirmev Injection - IVPB 01/12/19 13:16 1,000 mg ONCE ONE Administration <Navjot Plascencia - Last Filed: 01/12/19 16:57> - LABORATORY CBC & Chemistry Diagram: 01/12/19 14:07 01/12/19 13:12 <Yaron Monroe - Last Filed: 01/12/19 18:56> Medical Decision Making - Medical Decision Making 01/12/19 13:16 HPI: 73F PMH HTN, CAD recently discharged from [facility] after sepsis 2/2 pyelonephritis presenting 2 days after discharge with increased urinary frequency (hourly) and increased fatigue overnight. Endorses poor sleep. Denies f/c/n/v/d/cp/sob/ abdpain. h/o renal stones. Endorses a headache (usual characteristic per patient ). Was treated in hospital w/ Zosyn. ROS: CONSTITUTIONAL: Denies F / C HEENT: Endorses headache. Denies lightheadedness, changes in vision / hearing. RESP: Denies SOB CARD: Denies chest pain, palpitations GI: Denies N / V / D, abdominal pain, bloody stool, inability to tolerate PO : See HPI MSK: Denies myalgias PE: GEN: NAD, AAOx3 HEENT: NC/AT. No facial asymmetry. Normal voice. Supple neck w/ FROM. CV: S1/S2, RRR, no m/r/g LUNG: CTAB, no wheezes, crackles, rales, rhonchi. GI: soft, ndnt, +BS, no guarding EXTREMITIES: sutures on the right LE, well healed, 9 days old per patient. PSYCH: normal mood and affect MDM 73F discharged 2 days prior to this ED visit after treatment for sepsis 2/2 pyelonephritis presenting today with increased urinary frequency and increased fatigue. UA, UC BCX, CBC, CMP, Card Tylenol 01/12/19 16:33 labs reviewed neg UA call placed to Dr. Steele's office 01/12/19 18:54 labs not indicative of infectious cause no response from ID office Patient discharged w/ POSTAL SUPPORT EMPLOYEE and Urology f/u and return precautions callback requested re: Cx <Yaron Monroe - Last Filed: 01/12/19 18:56> Discharge - Discharge Information Problems reviewed: Yes - Admission No <Navjot Plascencia - Last Filed: 01/12/19 16:57> <Yaron Monroe - Last Filed: 01/12/19 18:56> - Discharge Information Clinical Impression/Diagnosis: Urinary frequency Condition: Stable Disposition: HOME - Patient Discharge Instructions Additional Instructions: Fluids, rest, return to ER immediately if there is sign of infection such as fever/chills, abdominal or back pain, excessive weakness, fatigue, or headache. Otherwise follow-up with SALES ACCOUNT SPECIALIST physician and urologist for further diagnosis and treatment.
[2019-01-12 12:31] VITALS: BMI 29.3
--- NOTE | 2019-01-12 12:42 | PDOC ---
Attending Attestation - Resident Resident Name: MonroeYaron - ED Attending Attestation I have performed the following: I have examined & evaluated the patient, The case was reviewed & discussed with the resident, I agree w/resident's findings & plan, Exceptions are as noted - HPI HPI: 01/14/19 20:57 Patient discharged 2 days ago after being treated for urosepsis. At discharge, her urine was clear, and no antibiotics were necessary. Organism was an E. coli sensitive to all antibiotics. This morning she began urinating frequently , every hour as she describes it, with moderate amounts of urine. There were no other symptoms including dysuria urgency hesitancy hematuria foul-smelling urine or discolored urine of any kind. She has had no fever or chills, myalgias , arthralgias, or other systemic sign of recurrent infection - Physicial Exam PE: 01/14/19 20:58 Physical exam: Afebrile, vital signs normal Entire physical was performed and shows no significant abnormalities. Specifically, there is no CVAT, no abdominal distention or tenderness, the bladder is not distended, and the heart and lungs auscultate normally. CBC, chemistries, and urinalysis showed no sign of recurrent infection. Blood cultures and urine cultures were performed and sent to the lab. - Medical Decision Making 01/12/19 16:46 Assessment: No definite evidence of infection, urine or otherwise. However, blood cultures and urine cultures pending. The cause of the patient's frequency of urination, in the absence of dysuria, fever, chills, back pain, or discolored or foul-smelling urine, is uncertain. It could be the result of inflammation of the urinary meatus due to recent urinary catheterization and/or atrophic vaginitis. Spoke to Dr. Carreno, infectious disease product support consultant who took care of the patient while hospitalized. He agrees with management of watchful waiting, check culture results, and no antibiotics at this time. Plan: Fluids p.o. Await culture results. Return to ER if fever or other symptoms that could possibly be infectious in nature. Follow-up with EMPLOYMENT OFFICER and urology. Fully ambulatory and in no pain or other distress at discharge to follow-up as directed 01/12/19 16:56
[2019-01-12] MEDS ORDERED: ACETAMINOPHEN 500 MG TABLET (FP) PO ONE (13:08)
[2019-01-12 13:10] LABS: EPITHELIAL CELLS FEW /hpf
[2019-01-12] MEDS ORDERED: ACETAMINOPHEN 1000 MG/100 ML VIAL (NON FORMULARY) IVPB ONE (13:15)
[2019-01-12] MEDS ORDERED: ACETAMINOPHEN INJECTION 100 ML IVPB ONE (14:21)
[2019-01-12 14:34] LABS: HEMATOCRIT 36.8 % (32.4-45.2); MCH 30.7 pg (25.7-33.7); MCHC 32.6 g/dl (32.0-36.0); MEAN CELL VOLUME 94.4 fl (80-96); MEAN PLT VOLUME 8.4 fl (7.5-11.1); PLATELET COUNT 643 K/MM3 (134-434); RDW 13.6 % (11.6-15.6); WHITE BLOOD COUNT 11.7 K/mm3 (4.0-10.8)
[2019-01-12 14:38] LABS: ALBUMIN 2.9 g/dl (3.4-5.0); BILIRUBIN,TOTAL 0.7 mg/dl (0.2-1); CALCIUM 9.6 mg/dl (8.5-10); CREATININE 0.6 mg/dl (0.55-1.3); POTASSIUM 4.4 mmol/L (3.5-5.1); TOT PROT 6.2 g/dl (6.4-8.2)
[2019-01-12 15:10] LABS: PLATELET ESTIMATE INCREASED
[2019-01-12 17:15] VITALS: BP 149/67; PULSE 78; TEMP 98.4
== END 2019-01-12 17:41 | disposition home or self-care (01) ==
LOC: FER 12:23
DX: R35.0 Frequency of micturition (principal); I10 Essential (primary) hypertension; I25.10 Atherosclerotic heart disease of native coronary artery without angina pectoris; Z96.0 Presence of urogenital implants; Z88.6 Allergy status to analgesic agent
CPT/HCPCS: 36415; 80053; 81003; 81015; 82550; 84484; 85025; 87040; 87086; 87186; 99283-25; J0131

== ENCOUNTER 2019-01-15 14:34 | Inpatient (IN) | payer BC ==
[2019-01-15] MEDS ORDERED: FAMOTIDINE 20 MG/50 ML IVPB 20 MG/50 ML MG IVPB ONE ×2 (14:59→15:29)
[2019-01-15] MEDS ORDERED: ONDANSETRON 4 MG/2 ML VIAL IVPUSH ONE (14:59)
[2019-01-15] MEDS ORDERED: ACETAMINOPHEN 1000 MG/100 ML VIAL (NON FORMULARY) IVPB ONE (14:59)
[2019-01-15] MEDS ORDERED: LACTATED RINGERS SOLUTION 1000 ML INFUS.BAG IV ONE (14:59)
[2019-01-15] MEDS ORDERED: ONDANSETRON 4 MG/2 ML VIAL ONE (15:13)
[2019-01-15] MEDS ORDERED: ACETAMINOPHEN INJECTION 100 ML IVPB ONE (15:13)
--- NOTE | 2019-01-15 15:20 | PDOC ---
Documentation entered by Brandi Gonzales SCRIBE, acting as scribe for Eli Batres DO. Eli Batres DO: This documentation has been prepared by the danyibe, Brandi Goznales SCRIBE, under my direction and personally reviewed by me in its entirety. I confirm that the documentation accurately reflects all work, treatment, procedures, and medical decision making performed by me. History of Present Illness - General Chief Complaint: Pain, Acute Stated Complaint: RIGHT SIDED FLANK PAIN Time Seen by Provider: 01/15/19 14:39 History Source: Patient Exam Limitations: No Limitations - History of Present Illness Initial Comments: 01/15/19 16:26 The patient is a 73-year-old female with a past medical history significant for HTN, CAD s/p stent, recent admission for urosepsis (01/04-01/10) who presents to the emergency department with vaginal itching, dysuria, and right flank pain. The patient reports she was discharged home on Wednesday, without abx. The patient reports since Wednesday, shes been feeling fatigued, nauseous with chills. The patient was seen at the ER on (01/12/2019) for urinary frequency, the patient was given fluid, and urine culture was obtained, the patient was discharged home. The patient reports since yesterday shes been vaginal itching and burning associated with right flank pain and pain across the back. The patient reports about 11 days ago, she had a syncopal episode in the bathroom. The patient reports she sustained a laceration to the right leg, which was sutured up on 01/14. Denies having hip pain after the fall. Denies vomiting or diarrhea. Denies fever, chest pain, SOB, cough, rash. Denies hematuria. Denies injury to the back. Allergies: NKDA Social history: Lives with son who is disabled. Surgical history: ORIF (October 2018). Past History - Past Medical History Allergies/Adverse Reactions: Allergies Allergy/AdvReac Type Severity Reaction Status Date / Time No Known Drug Allergies Allergy Verified 01/15/19 14:35 Home Medications: Ambulatory Orders Metoprolol Succinate [Toprol Xl] 25 mg PO HS 01/04/19 Aspirin [ASA -] 81 mg PO DAILY 01/05/19 Cardiac Disorders: Yes (STENT X1) COPD: No Disorders: Yes (UROSEPSIS) HTN: Yes Kidney Stones: Yes (RENAL STENT PLACED AND REMOVED) - Surgical History Orthopedic Surgery: Yes (left ankle surgery) - Psycho Social/Smoking Cessation Hx Smoking History: Never smoked Have you smoked in the past 12 months: No Information on smoking cessation initiated: No Hx Alcohol Use: (social) Drug/Substance Use Hx: No Substance Use Type: None Hx Substance Use Treatment: No Review of Systems - Review of Systems Able to Perform ROS?: Yes Comments:: 01/15/19 16:26 GENERAL/CONSTITUTIONAL: No fever. +chills. No weakness. HEAD, EYES, EARS, NOSE AND THROAT: No change in vision. No ear pain or discharge. No sore throat. GASTROINTESTINAL: +nausea. No vomiting, diarrhea or constipation. GENITOURINARY: +vaginal itching, burning. Denies hematuria. CARDIOVASCULAR: No chest pain or shortness of breath. RESPIRATORY: No cough, wheezing, or hemoptysis. MUSCULOSKELETAL: +right flank pain. No other joint or muscle swelling or pain. No neck or back pain. SKIN: No rash NEUROLOGIC: No headache, vertigo, loss of consciousness, or change in strength/ sensation. ENDOCRINE: No increased thirst. No abnormal weight change. HEMATOLOGIC/LYMPHATIC: No anemia, easy bleeding, or history of blood clots. ALLERGIC/IMMUNOLOGIC: No hives or skin allergy. *Physical Exam - Vital Signs Last Vital Signs Temp Pulse Resp BP Pulse Ox 98.9 F 83 18 122/91 97 01/15/19 14:35 01/15/19 14:35 01/15/19 14:35 01/15/19 14:35 01/15/19 14:35 ED Treatment Course - LABORATORY CBC & Chemistry Diagram: 01/15/19 15:19 01/15/19 15:19 Medical Decision Making - Medical Decision Making 01/15/19 15:18 a/p: 73yo female with recent L pyelo/sepsis who was dc on wednesday and had a repeat er visit on with urinary freq/dysuria -pt states also with R sided lbp now -no fevers -no n/v/d -no hematuria -pt with suprapubic ttp on exam -pt with healing wound with sutures in place to RLE- still with some openings, not ready for suture removal -will send labs, ct abd/pelvis with IV contrast -will send ua/ucx -will monitor and reassess 01/15/19 15:57 plt 761 no elevated wbc pt with uti on labs culture from 2 days ago +ecoli sensitive to rocephin will start iv abx 01/15/19 16:23 pt still with a uti will re-admit for iv abx microblog sent to [facility] for ADMISSION 01/15/19 16:25 I, Dr. Eli Batres, DO, attest that this document has been prepared under my direction and personally reviewed by me in its entirety. I further attest, that it accurately reflects all work, treatment, procedures and medical decision -making performed by me. 01/15/19 16:30 case discussed with Macey HANDY from [facility] who accepts pt to [facility] Discharge - Discharge Information Problems reviewed: Yes Clinical Impression/Diagnosis: UTI (urinary tract infection), Thrombocythemia, Hypercalcemia Condition: Fair - Admission Yes - Follow up/Referral - Patient Discharge Instructions - Post Discharge Activity
[2019-01-15 15:43] LABS: INR 1.18 (0.82-1.09); PROTHROMBIN TIME (PATIENT) 13.2 SEC (10.2-13.0)
[2019-01-15 15:45] LABS: ALBUMIN 3.4 g/dl (3.4-5.0); BILIRUBIN,TOTAL 0.7 mg/dl (0.2-1); CALCIUM 10.4 mg/dl (8.5-10); CREATININE 0.6 mg/dl (0.55-1.3); POTASSIUM 4.4 mmol/L (3.5-5.1); TOT PROT 6.8 g/dl (6.4-8.2)
[2019-01-15 15:51] LABS: BASO % 3.1 % (0-2.0); EOS % 2.1 % (0-4.5); HEMATOCRIT 40.3 % (32.4-45.2); HEMOGLOBIN 13.7 GM/dl (10.7-15.3); LYMPH % 15.2 % (8-40); MCH 31.9 pg (25.7-33.7); MCHC 33.9 g/dl (32.0-36.0); MEAN CELL VOLUME 94.1 fl (80-96); MEAN PLT VOLUME 8.5 fl (7.5-11.1); MONO % 8.3 % (3.8-10.2); NEUT % 71.3 % (42.8-82.8); RBC 4.28 M/mm3 (3.60-5.2); RDW 13.6 % (11.6-15.6); WHITE BLOOD COUNT 10.2 K/mm3 (4.0-10.8)
[2019-01-15 15:55] LABS: PLATELET COUNT 761 K/MM3 (134-434)
[2019-01-15] MEDS ORDERED: CEFTRIAXONE 1 GM in DEXTROSE 5%-WATER - 100 ML IVPB ONE (15:56)
[2019-01-15] MEDS ORDERED: cefTRIAXone SODIUM 1 GM VIAL ONE (15:57)
[2019-01-15 15:59] LABS: EPITHELIAL CELLS MODERATE /hpf
--- NOTE | 2019-01-15 16:39 | PDOC ---
Documentation entered by Brandi Gonzales SCRIBE, acting as scribe for Eli Batres DO. Eli Batres DO: This documentation has been prepared by the scribe, Brandi Gonzales SCRIBE, under my direction and personally reviewed by me in its entirety. I confirm that the documentation accurately reflects all work, treatment, procedures, and medical decision making performed by me. *Physical Exam - Vital Signs Last Vital Signs Temp Pulse Resp BP Pulse Ox 98.9 F 83 18 122/91 97 01/15/19 14:35 01/15/19 14:35 01/15/19 14:35 01/15/19 14:35 01/15/19 14:35 - Physical Exam Comments: 01/15/19 16:36 Constitutional: Awake, alert, oriented. No acute distress. Head: Normocephalic. Atraumatic Eyes: PERRL. EOMI. Conjunctivae are not pale. ENT: +dry cracked tongue. Posterior pharynx without exudate or erythema. Uvula midline. Neck: Supple. Full ROM. No lymphadenopathy. Cardiovascular: Regular rate. Regular rhythm. S1, S2 regular. Distal pulses are 2+ and symmetric. Pulmonary/Chest: No evidence of respiratory distress. Clear to auscultation bilaterally No wheezing, rales or rhonchi. Abdominal: +right lower suprapubic/groin pain. Soft, nondistended. No rebound, guarding or rigidity. No organomegaly. No palpable masses. Good bowel sounds. Back: +Right lower base, paraspinal tenderness, no step offs or CVA tenderness. Musculoskeletal: No edema. No cyanosis. No clubbing. Full range of motion in all extremities. Nocalf tenderness. Radial/pedal pulses are intact and 2+ bilaterally Skin: +Well healing, laceration to the anterior tibia of the right leg with sutures in place, with wound open, no draining or bleeding. Skin is warm and dry. Neurological: +tremulous. Alert and oriented to person, place, and time. Cranial nerves II-XII are grossly intact. Normal speech. Strength is grossly symmetric. No sensory deficits. Psychiatric: Good eye contact. Normal interaction, affect and behavior. ED Treatment Course - LABORATORY CBC & Chemistry Diagram: 01/15/19 15:19 01/15/19 15:19 - ADDITIONAL ORDERS Additional order review: Laboratory Results 01/15/19 01/15/19 01/15/19 15:38 15:19 15:19 PT with INR 13.2 H INR 1.18 PTT (Actin FS) Sodium 137 Potassium 4.4 Chloride 104 Carbon Dioxide 25 Anion Gap 8 BUN 12.0 Creatinine 0.6 Est GFR (CKD-EPI)AfAm 104.07 Est GFR (CKD-EPI)NonAf 89.79 Random Glucose 106 Calcium 10.4 H Total Bilirubin 0.7 AST 16 ALT 24 Alkaline Phosphatase 108 D Total Protein 6.8 Albumin 3.4 Urine Color Yellow Urine Appearance Cloudy Urine pH 5.5 Urine Protein 2+ H Urine Glucose (UA) Negative Urine Ketones Negative Urine Blood Trace-lysed Urine Nitrite Positive H Urine Bilirubin Negative Urine Urobilinogen 0.2 Ur Leukocyte Esterase 1+ Urine RBC 2-5 Urine WBC 80-100 Ur Transition Epith Cell Moderate Urine Bacteria Moderate 01/15/19 15:19 PT with INR INR PTT (Actin FS) 25.7 Sodium Potassium Chloride Carbon Dioxide Anion Gap BUN Creatinine Est GFR (CKD-EPI)AfAm Est GFR (CKD-EPI)NonAf Random Glucose Calcium Total Bilirubin AST ALT Alkaline Phosphatase Total Protein Albumin Urine Color Urine Appearance Urine pH Urine Protein Urine Glucose (UA) Urine Ketones Urine Blood Urine Nitrite Urine Bilirubin Urine Urobilinogen Ur Leukocyte Esterase Urine RBC Urine WBC Ur Transition Epith Cell Urine Bacteria 01/15/19 15:19 RBC 4.28 MCV 94.1 MCHC 33.9 RDW 13.6 MPV 8.5 Neutrophils % 71.3 Lymphocytes % 15.2 Monocytes % 8.3 Eosinophils % 2.1 Basophils % 3.1 H - RADIOLOGY Radiology Studies Ordered: Category Date Time Status ABDOMEN & PELVIS CT WITH CONTR [CT] Stat CT Scan 01/15/19 15:55 Taken - Medications Given in the ED: ED Medications Discontinued Medications Generic Name Dose Route Start Last Admin Trade Name Freq PRN Reason Stop Dose Admin Acetaminophen 1,000 mg 01/15/19 14:59 01/15/19 15:20 Ofirmev Injection - IVPB 01/15/19 15:00 1,000 mg ONCE ONE Administration Famotidine/Sodium Chloride 20 mg in 50 mls @ 100 mls/hr 01/15/19 14:59 15:35 Pepcid 20 Mg Premixed Ivpb - IVPB 01/15/19 15:28 100 mls/hr ONCE ONE Administration Ceftriaxone Sodium 1 gm/ 100 mls @ 200 mls/hr 01/15/19 15:56 01/15/19 16:16 Dextrose IVPB 01/15/19 16:25 200 mls/hr ONCE ONE Administration Protocol Lactated Ringer's 1,000 ml 01/15/19 14:59 01/15/19 15:20 Lactated Ringers Solution IV 01/15/19 15:00 1,000 ml ONCE ONE Administration Ondansetron HCl 4 mg 01/15/19 14:59 01/15/19 15:15 Zofran Injection IVPUSH 01/15/19 15:00 4 mg ONCE ONE Administration Medical Decision Making - Medical Decision Making 01/15/19 16:38 pt accepted for admission to [facility] for iv abx for uti please refer to the previous note physical in this note Discharge - Discharge Information Problems reviewed: Yes Clinical Impression/Diagnosis: UTI (urinary tract infection), Thrombocythemia, Hypercalcemia Condition: Fair - Admission Yes - Follow up/Referral - Patient Discharge Instructions - Post Discharge Activity
--- NOTE | 2019-01-15 17:01 | HP ---
CHIEF COMPLAINT: vaginal itching, dysuria, new right lower quadrant abdominal pain, nausea, fatigue and chills PCP: HISTORY OF PRESENT ILLNESS: Mrs. Newell is a 73-year-old female with a past medical history significant for hypertension , coronary artery disease s/p stent, recent admission for urosepsis (01/04-01/10) treated with IV Rocephin and seen by Infectious Diseases who presents to the emergency department with new right lower quadrant abdominal pain and chills, denied fever. She was discharged home on 01/10/2019Wednesday and reports since Wednesday she has been feeling fatigue, nausea and chills. She was seen at the ER on (01/12/2019) for urinary frequency, urine culture was obtained, and she was discharged home on no oral antibiotics. Urine culture resulted with Escherichia Coli on 01/12/2019, no growth on blood cultures 01/12/2019. Patient reported she was not called with results of urine culture.Urine She reports since yesterday she has been experiencing chills , increased urinary frequency associated with new right lower abdominal pain and pain across the back. She reports about 11 days ago she had a syncopal episode in the bathroom. She reports she sustained a laceration to the right leg, which was sutured up on 01/14. ER course was notable for: (1)UA positive for nitrite, 1+ leukoesterase, moderate bacteria. CT scan of abdomen and pelvis showed no hydronephrosis, mild improvement of inflammatory/infectious changes involving the left renal region, no definite CT evidence of right sided acute pyelonephritis, possible cholelithiasis seen,no acute cholecystitis, no biliary tract dilatation. (2)Labs notable for WBC 10,200, platelets 761, and calcium 10.4 2) Received one dose of IV Ceftriaxone 1 gm Recent Travel: denies PAST MEDICAL HISTORY: Hypertension Coronary Artery Disease s/p stent Clostridium Deficele 10/2018 PAST SURGICAL HISTORY: left ORIF 09/2018 Social History: Smoking:denies Alcohol:denies Drugs:denies Allergies No Known Drug Allergies Allergy (Verified 01/15/19 14:35) HOME MEDICATIONS: Home Medications Medication Instructions Recorded Metoprolol Succinate [Toprol Xl] 25 mg PO HS 01/04/19 Aspirin [ASA -] 81 mg PO DAILY 01/05/19 REVIEW OF SYSTEMS CONSTITUTIONAL: Absent: fever, chills, diaphoresis, fatigue, malaise, loss of appetite, weight change HEENT: Absent: rhinorrhea, nasal congestion, throat pain, throat swelling, difficulty swallowing, mouth swelling, ear pain, eye pain, visual changes CARDIOVASCULAR: Absent: chest pain, syncope, palpitations, irregular heart rate, lightheadedness , peripheral edema RESPIRATORY: Absent: cough, shortness of breath, dyspnea with exertion, orthopnea, wheezing, stridor, hemoptysis GASTROINTESTINAL: Absent: abdominal pain, abdominal distension, nausea, vomiting, diarrhea, constipation, melena, hematochezia GENITOURINARY: Absent: dysuria, frequency, hesitancy, hematuria, right lower quadrant abdominal pain, genital pain MUSCULOSKELETAL: Absent: myalgia, arthralgia, joint swelling, lower back pain, neck pain SKIN: Absent: rash, itching, pallor, right lower extremity laceration with sutures HEMATOLOGIC/IMMUNOLOGIC: Absent: easy bleeding, easy bruising, lymphadenopathy, frequent infections ENDOCRINE: Absent: unexplained weight gain, unexplained weight loss, heat intolerance, cold intolerance NEUROLOGIC: Absent: headache, focal weakness or paresthesias, dizziness, unsteady gait, seizure, mental status changes, bladder or bowel incontinence PSYCHIATRIC: Absent: anxiety, depression, suicidal or homicidal ideation, hallucinations. PHYSICAL EXAMINATION Vital Signs - 24 hr 01/15/19 14:35 Temperature 98.9 F Pulse Rate 83 Respiratory 18 Rate Blood Pressure 122/91 O2 Sat by Pulse 97 Oximetry (%) GENERAL: awake, alert, and fully oriented, no acute distress HEAD: normal with no signs of trauma EYES: pupils equal, round and reactive to light EARS, NOSE, THROAT: ears normal, nares patent NECK: normal range of motion LUNGS: breath sounds equal, clear to auscultation bilaterally no rales no wheezing HEART: regular rate and rhythm normal S1 and S2 ABDOMEN: right lower quadrant tenderness/pain on palpation no acute abdomen MUSCULOSKELETAL: normal range of motion UPPER EXTREMITIES: 2+ pulses, warm well-perfused no cyanosis LOWER EXTREMITIES: 2+ pulses, warm well-perfused, laceration with sutures to RLE NEUROLOGICAL: normal speech PSYCHIATRIC: cooperative good eye contact appropriate mood and affect SKIN: warm dry normal turgor no rashes or lesions noted, normal capillary refill, nonerythematous laceration to RLE with sutures Laboratory Results - last 24 hr 01/15/19 01/15/19 01/15/19 15:19 15:19 15:19 WBC 10.2 RBC 4.28 Hgb 13.7 Hct 40.3 MCV 94.1 MCH 31.9 MCHC 33.9 RDW 13.6 Plt Count 761 H MPV 8.5 Absolute Neuts (auto) 7.4 Neutrophils % 71.3 Lymphocytes % 15.2 Monocytes % 8.3 Eosinophils % 2.1 Basophils % 3.1 H PT with INR INR PTT (Actin FS) 25.7 Sodium 137 Potassium 4.4 Chloride 104 Carbon Dioxide 25 Anion Gap 8 BUN 12.0 Creatinine 0.6 Est GFR (CKD-EPI)AfAm 104.07 Est GFR (CKD-EPI)NonAf 89.79 Random Glucose 106 Calcium 10.4 H Total Bilirubin 0.7 AST 16 ALT 24 Alkaline Phosphatase 108 D Total Protein 6.8 Albumin 3.4 Urine Color Urine Appearance Urine pH Urine Protein Urine Glucose (UA) Urine Ketones Urine Blood Urine Nitrite Urine Bilirubin Urine Urobilinogen Ur Leukocyte Esterase Urine RBC Urine WBC Ur Transition Epith Cell Urine Bacteria 01/15/19 01/15/19 15:19 15:38 WBC RBC Hgb Hct MCV MCH MCHC RDW Plt Count MPV Absolute Neuts (auto) Neutrophils % Lymphocytes % Monocytes % Eosinophils % Basophils % PT with INR 13.2 H INR 1.18 PTT (Actin FS) Sodium Potassium Chloride Carbon Dioxide Anion Gap BUN Creatinine Est GFR (CKD-EPI)AfAm Est GFR (CKD-EPI)NonAf Random Glucose Calcium Total Bilirubin AST ALT Alkaline Phosphatase Total Protein Albumin Urine Color Yellow Urine Appearance Cloudy Urine pH 5.5 Urine Protein 2+ H Urine Glucose (UA) Negative Urine Ketones Negative Urine Blood Trace-lysed Urine Nitrite Positive H Urine Bilirubin Negative Urine Urobilinogen 0.2 Ur Leukocyte Esterase 1+ Urine RBC 2-5 Urine WBC 80-100 Ur Transition Epith Cell Moderate Urine Bacteria Moderate ASSESSMENT/PLAN: In summary this is a 73-year-old female with a past medical history significant for hypertension and coronary artery disease s/p stent, recent admission on 01/04 and discharged on 01/10/2019 for urosepsis and treated with 8 days of IV Rocephin. She presented to the ER again on 01/12/2019 and urine culture was obtained and resulted Escherichia Coli on 01/12/2019, no growth on blood cultures 01/12/2019. Patient reported she was not called with results of urine culture. She presented today with a new right lower abdominal pain, fatigue, nausea, chills, and increased urinary frequency. She was found to have an abnormal UA which was positive for nitrite, 1+ leukoesterase, moderate bacteria , trace blood, and WBC 80-100. Laboratory findings notable for WBC 10,2000, normal creatinine, platelets 761 and calcium 10.4. She is currently afebrile and hemodynamically stable. CT scan of abdomen and pelvis showed no hydronephrosis, mild improvement of inflammatory/infectious changes involving the left renal region, no definite CT evidence of right sided acute pyelonephritis, possible cholelithiasis seen,no acute cholecystitis, no biliary tract dilatation. #1 Recurrent Symptomatic UTI Recent admission for urosepsis (01/04-01/10) treated with 8 days of IV Rocephin. Seen in ER on 01/12 after discharge Urine culture on 01/12/2019 resulted Escherichia Coli, no growth on blood cultures 01/12/2019 and evaluated by Infectious Diseases. - Received one dosage of IV Rocephin 1 gm - Continue with IV Ceftriaxone 1 gm daily - Pending urine culture - Infectious Diseases (Dr. Fitzgerald consulted) - Urology(Dr. Hicks consulted) - Repeat blood cultures ordered and lactic acid level - Pain control with tylenol as needed q6hr for mild to moderate pain and percocet q6hr for severe pain as needed #2 Hypertension Controlled - Continue with metoprolol succinate 25mg daily #3 Hx Coronary Artery Disease Asymptomatic 01/06: LV normal, EF 55-60%, impaired LV relaxation; RV normal; mild MR; mild TR ; pHTN - Continue with aspirin therapy and toprol #4 Thrombocytosis - Continue with aspirin - Repeat CBC in am #5 Right Lower Extremity Laceration with Sutures -Apply bacitracin ointment BID #6 Hypercalcemia Calcium level 10.4, previous admission range 8.4-9.6 Continue to monitor DVT Prophylaxis Lovenox 40 mg daily FEN -IVF NS @75cc/hr -Low sodium diet Visit type - Emergency Visit Emergency Visit: Yes ED Registration Date: 01/15/19 Care time: The patient presented to the Emergency Department on the above date and was hospitalized for further evaluation of their emergent condition. - New Patient This patient is new to me today: Yes Date on this admission: 01/15/19 - Critical Care Critical Care patient: No
[2019-01-15] MEDS ORDERED: KETOROLAC TROMETHAMINE 15 MG/ML VIAL IVPUSH ONE (17:04)
[2019-01-15] MEDS ORDERED: SODIUM CHLORIDE 0.9% 1000 ML INFUS.BAG IV ONE (17:04)
[2019-01-15] MEDS ORDERED: KETOROLAC TROMETHAMINE 15 MG/ML VIAL ONE (17:09)
[2019-01-15 17:57] VITALS: BMI 29.1
[2019-01-15] MEDS ORDERED: morphine CARPU-JECT 2 MG/1 ML DISP.SYRIN IVPUSH ONE (19:53)
[2019-01-15] MEDS ORDERED: ACETAMINOPHEN 325 MG TABLET (FP) PO ONE (20:00)
[2019-01-15] MEDS ORDERED: oxyCODONE HCL 5 MG TABLET PO ONE (20:00)
[2019-01-15] MEDS ORDERED: SODIUM CHLORIDE 1,000 ML IV SCH (21:45)
[2019-01-15] MEDS: metoPROLOL SUCCINATE 25 MG TAB.SR.24H (FP) PO SCH (21:46)
[2019-01-15] MEDS: ACETAMINOPHEN 325 MG TABLET (FP) PO PRN (22:39)
[2019-01-15] MEDS: BACITRACIN/POLYMYXIN B SULFATE 15 GM TUBE TP SCH ×2 (22:39→22:45)
[2019-01-16] MEDS ORDERED: oxyCODONE HCL 5 MG TABLET PO ONE (06:17)
[2019-01-16] MEDS: ACETAMINOPHEN 325 MG TABLET (FP) PO PRN (06:18)
[2019-01-16 08:47] LABS: BASO % 1.3 % (0-2.0); HEMATOCRIT 34.3 % (32.4-45.2); HEMOGLOBIN 11.6 GM/dl (10.7-15.3); LYMPH % 12.9 % (8-40); MCH 32.1 pg (25.7-33.7); MCHC 33.9 g/dl (32.0-36.0); MEAN CELL VOLUME 94.6 fl (80-96); MONO % 8.1 % (3.8-10.2); NEUT % 73.7 % (42.8-82.8); PLATELET COUNT 577 K/MM3 (134-434); RBC 3.63 M/mm3 (3.60-5.2); RDW 13.6 % (11.6-15.6); WHITE BLOOD COUNT 9.3 K/mm3 (4.0-10.8)
[2019-01-16 09:34] LABS: ALBUMIN 2.8 g/dl (3.4-5.0); BILIRUBIN,TOTAL 0.5 mg/dl (0.2-1); CALCIUM 9.7 mg/dl (8.5-10); CREATININE 0.5 mg/dl (0.55-1.3); POTASSIUM 4.4 mmol/L (3.5-5.1); TOT PROT 5.5 g/dl (6.4-8.2)
[2019-01-16] MEDS: ASPIRIN 81 MG CHEWABLE TABLETS PO SCH (09:56)
[2019-01-16] MEDS: BACITRACIN/POLYMYXIN B SULFATE 15 GM TUBE TP SCH ×2 (09:57→21:42)
[2019-01-16] MEDS: ENOXAPARIN NA (PORCINE) 40 MG/0.4 ML DISP.SYRIN SQ SCH (09:57)
[2019-01-16] MEDS ORDERED: CEFTRIAXONE 1 G/50 ML PREMIX 50 ML IVPB SCH (10:00)
[2019-01-16] MEDS ORDERED: CEFTRIAXONE 1 GM in DEXTROSE 5%-WATER - 50 ML IVPB SCH (10:00)
--- NOTE | 2019-01-16 10:23 | PN ---
Physical Exam: SUBJECTIVE: Patient seen and examined at bedside. Observed patient in and out of bed, ambulated back and forth to bathroom with cane, minimal assistance. Provides further HPI: Wednesday night developed right-sided lower back pain, just above the right buttock. It was constant and severe, did not radiate. On Wednesday morning patient came to the ED because of this pain which she says is like the kidney stone pain she has had in the past. The pain continued through Wednesday and was worse Wednesday (last night). Patient now describes the pain as starting in the RLQ/inguinal area and radiating across the right hip to the right lower back. The pain is much better today, more of a discomfort. OBJECTIVE: Vital Signs Period Temp Pulse Resp BP Sys/Parra Pulse Ox Last 24 Hr 97.8 F-98.9 F 59-86 16-19 122-165/56-91 94-99 GENERAL: The patient is awake, alert, and fully oriented, in no acute distress. LUNGS: Breath sounds equal, clear to auscultation bilaterally, no wheezes, no crackles, no accessory muscle use. HEART: Regular rate and rhythm, S1, S2 ABDOMEN: Soft, nontender, nondistended, normoactive bowel sounds EXTREMITIES: 2+ pulses, warm, well-perfused, no edema. NEUROLOGICAL: Cranial nerves II through XII grossly intact. Normal speech, steady gait Laboratory Results - last 24 hr 01/15/19 01/15/19 01/15/19 15:19 15:19 15:19 WBC 10.2 RBC 4.28 Hgb 13.7 Hct 40.3 MCV 94.1 MCH 31.9 MCHC 33.9 RDW 13.6 Plt Count 761 H MPV 8.5 Absolute Neuts (auto) 7.4 Neutrophils % 71.3 Lymphocytes % 15.2 Monocytes % 8.3 Eosinophils % 2.1 Basophils % 3.1 H PT with INR INR PTT (Actin FS) 25.7 Sodium 137 Potassium 4.4 Chloride 104 Carbon Dioxide 25 Anion Gap 8 BUN 12.0 Creatinine 0.6 Est GFR (CKD-EPI)AfAm 104.07 Est GFR (CKD-EPI)NonAf 89.79 Random Glucose 106 Lactic Acid Calcium 10.4 H Total Bilirubin 0.7 AST 16 ALT 24 Alkaline Phosphatase 108 D Total Protein 6.8 Albumin 3.4 Urine Color Urine Appearance Urine pH Urine Protein Urine Glucose (UA) Urine Ketones Urine Blood Urine Nitrite Urine Bilirubin Urine Urobilinogen Ur Leukocyte Esterase Urine RBC Urine WBC Ur Transition Epith Cell Urine Bacteria 01/15/19 01/15/19 01/15/19 15:19 15:38 22:40 WBC RBC Hgb Hct MCV MCH MCHC RDW Plt Count MPV Absolute Neuts (auto) Neutrophils % Lymphocytes % Monocytes % Eosinophils % Basophils % PT with INR 13.2 H INR 1.18 PTT (Actin FS) Sodium Potassium Chloride Carbon Dioxide Anion Gap BUN Creatinine Est GFR (CKD-EPI)AfAm Est GFR (CKD-EPI)NonAf Random Glucose Lactic Acid 0.6 Calcium Total Bilirubin AST ALT Alkaline Phosphatase Total Protein Albumin Urine Color Yellow Urine Appearance Cloudy Urine pH 5.5 Urine Protein 2+ H Urine Glucose (UA) Negative Urine Ketones Negative Urine Blood Trace-lysed Urine Nitrite Positive H Urine Bilirubin Negative Urine Urobilinogen 0.2 Ur Leukocyte Esterase 1+ Urine RBC 2-5 Urine WBC 80-100 Ur Transition Epith Cell Moderate Urine Bacteria Moderate 01/16/19 01/16/19 07:06 07:06 WBC 9.3 RBC 3.63 Hgb 11.6 Hct 34.3 MCV 94.6 MCH 32.1 MCHC 33.9 RDW 13.6 Plt Count 577 H MPV 9.0 Absolute Neuts (auto) 6.8 Neutrophils % 73.7 Lymphocytes % 12.9 Monocytes % 8.1 Eosinophils % 4.0 Basophils % 1.3 PT with INR INR PTT (Actin FS) Sodium 137 Potassium 4.4 Chloride 105 Carbon Dioxide 27 Anion Gap 5 L BUN 10.0 Creatinine 0.5 L Est GFR (CKD-EPI)AfAm 110.50 Est GFR (CKD-EPI)NonAf 95.34 Random Glucose 92 Lactic Acid Calcium 9.7 Total Bilirubin 0.5 AST 11 L ALT 18 Alkaline Phosphatase 90 D Total Protein 5.5 L Albumin 2.8 L Urine Color Urine Appearance Urine pH Urine Protein Urine Glucose (UA) Urine Ketones Urine Blood Urine Nitrite Urine Bilirubin Urine Urobilinogen Ur Leukocyte Esterase Urine RBC Urine WBC Ur Transition Epith Cell Urine Bacteria Active Medications Generic Name Dose Route Start Last Admin Trade Name Freq PRN Reason Stop Dose Admin Acetaminophen 650 mg 01/15/19 18:33 01/16/19 06:18 Tylenol - PO 650 mg Q6H PRN Administration PAIN LEVEL 1-5 Aspirin 81 mg 10/14/19 10:00 01/16/19 09:56 Asa - PO 81 mg DAILY ROBIN Administration Bacitracin/Polymyxin B Sulfate 1 applic 01/15/19 22:00 01/16/19 09:57 Polysporin Ointment - TP 1 applic BID ROBIN Administration Enoxaparin Sodium 40 mg 01/16/19 10:00 01/16/19 09:57 Lovenox - SQ 40 mg DAILY ROBIN Administration Sodium Chloride 1,000 mls @ 75 mls/hr 01/15/19 21:45 01/15/19 22:37 Normal Saline - IV 75 mls/hr ASDIR ROBIN Administration Ceftriaxone Sodium 50 mls @ 100 mls/hr 01/16/19 10:00 01/16/19 09:57 Ceftriaxone 1 Gm-D5w Bag IVPB 100 mls/hr DAILY ROBIN Administration Protocol Metoprolol Succinate 25 mg 01/15/19 22:00 01/15/19 21:46 Toprol Xl - PO 25 mg HS ROBIN Administration ASSESSMENT/PLAN 73 year-old female with a PMH significant for HTN, CAD s/p stent, left ankle ORIF (September 2018), and recently hospitalized for E.coli bacteremia and severe sepsis secondary to left-sided pyelonephritis treated with Zosyn (01/04-01/10). Seen in the ED on 01/12 with symptoms of UTI, negative UA and culture <50k E. coli colonies, no antibiotics ordered. Presented again to ED on 01/15 with a complaint of low back pain, frequency, and vaginal itching. Left-sided pyelonephritis UTI --01/15 UA: +nitrite, 1+ leuks, WBCs 80-100; patient complains of frequency; no dysuria, hematuria, or urgency; afebrile, no leukocytosis --01/15 CTAP: persistent acute/subacute left-sided pyelonephritis and pyelitis --blood and urine cultures pending --switch to Zosyn (IV antibiotics day #2) --ID following Right lower back pain/RLQ pain --CT on 01/15 shows 1cm calculus in the right renal pelvis, unchanged from imaging; unlikely to be the source of pain --s/p appendectomy as child --h/o L5-S1 disc problem; patient states she had an MRI within the past 6 months and was undergoing epidural injections up until the time she broke her ankle; she was taking gabapentin for a time for pain but stopped as it did not help --will obtain xray right hip, CT lumbar spine; consider transvaginal ultrasound Right leg laceration Cellulitis --sutures still in place --erythema surrounding sutures and a blood-filled blister, not seen during previous hospitalization --vascular consult placed --start doxycycline Hypertension --BP stable --continue ToprolXL Coronary artery disease --had negative ischemic workup, unremarkable echo during last hospitalization --continue ASA, ToprolXL Vaginal itching --patient states has resolved Left ankle fracture s/p ORIF October 2018 --has been in rehab, goes to PT, on disability and expected to go back to work on 02/03 --uses a walker at baseline, at home switches to cane --working daily with PT here FEN Fluids: PO intake adequate Electrolytes: replete as indicated Nutrition: low sodium DVT prophylaxis: subq lovenox Dispo: continues to require inpatient care. Full code. Visit type - Emergency Visit Emergency Visit: Yes ED Registration Date: 01/15/19 Care time: The patient presented to the Emergency Department on the above date and was hospitalized for further evaluation of their emergent condition. - New Patient This patient is new to me today: Yes Date on this admission: 01/16/19 - Critical Care Critical Care patient: No
[2019-01-16 10:54] LABS: PLATELET ESTIMATE MOD INCREASED
--- NOTE | 2019-01-16 12:57 | EKG ---
Test Reason : Blood Pressure : / mmHG Vent. Rate : 061 BPM Atrial Rate : 061 BPM P-R Int : 144 ms QRS Dur : 076 ms QT Int : 424 ms P-R-T Axes : 026 -05 013 degrees QTc Int : 426 ms NORMAL SINUS RHYTHM NORMAL ECG WHEN COMPARED WITH ECG OF 05-JAN-2019 15:36, NO SIGNIFICANT CHANGE WAS FOUND Confirmed by MILA SCHULZ MD ([id number]) on 01/16/2019 12:56:45 PM Referred By: MD REICH Confirmed By:MILA SCHULZ MD
--- NOTE | 2019-01-16 13:45 | CON.ID ---
Consult Consult Specialty:: infectious diseases - Alcohol/Substance Use Hx Alcohol Use: Yes (social) - Smoking History Smoking history: Never smoked Have you smoked in the past 12 months: No Home Medications - Allergies Allergies/Adverse Reactions: Allergies Allergy/AdvReac Type Severity Reaction Status Date / Time No Known Drug Allergies Allergy Verified 01/15/19 14:35 - Home Medications Home Medications: Ambulatory Orders Metoprolol Succinate [Toprol Xl] 25 mg PO HS 01/04/19 Aspirin [ASA -] 81 mg PO DAILY 01/05/19 Physical Exam Vital Signs: Vital Signs Temperature 98.3 F 01/16/19 04:00 Pulse Rate 64 01/16/19 04:00 Respiratory Rate 18 01/16/19 08:11 Blood Pressure 123/56 L 01/16/19 04:00 O2 Sat by Pulse Oximetry (%) 95 01/16/19 08:11 Labs: CBC, BMP 01/16/19 07:06 01/16/19 07:06
[2019-01-16] MEDS ORDERED: PIPERACILLIN/TAZOBACTAM 3.375 GM VIAL IVPB ONE (16:59)
[2019-01-16] MEDS ORDERED: DEXTROSE 5%-WATER - 50 ML IVPB ONE (16:59)
[2019-01-16] MEDS: PIPERACILLIN/TAZOB 3.375 GM 3.375 GM in DEXTROSE 5%-WATER - 50 ML IVPB SCH (17:29)
--- NOTE | 2019-01-16 18:29 | CON.GU ---
Consult Consult Specialty:: Referred by:: medicine Reason for Consultation:: UTI, kidney stones - History of Present Illness Chief Complaint: recurrent UTI History of Present Illness: 73 year old female with complaints of recurrent UTIs. On CT scan she has bilateral non-obstructing kidney stones. No pain, nausea or vomiting. She has had lithotripsy in the past - History Source History Provided By: Patient Limitations to Obtaining History: No Limitations - Past Medical History Renal/: Yes: Renal Calculi - Alcohol/Substance Use Hx Alcohol Use: Yes (social) - Smoking History Smoking history: Never smoked Have you smoked in the past 12 months: No Home Medications - Allergies Allergies/Adverse Reactions: Allergies Allergy/AdvReac Type Severity Reaction Status Date / Time No Known Drug Allergies Allergy Verified 01/15/19 14:35 - Home Medications Home Medications: Ambulatory Orders Metoprolol Succinate [Toprol Xl] 25 mg PO HS 01/04/19 Aspirin [ASA -] 81 mg PO DAILY 01/05/19 Review of Systems - Review of Systems Constitutional: reports: Chills, Fever, Lethargy Genitourinary: denies: Dysuria, Flank Pain Physical Exam- Vital Signs: Vital Signs Temperature 97.3 F L 01/16/19 14:36 Pulse Rate 67 01/16/19 14:36 Respiratory Rate 16 01/16/19 14:36 Blood Pressure 127/58 L 01/16/19 14:36 O2 Sat by Pulse Oximetry (%) 95 01/16/19 08:11 Renal/: No: CVA Tenderness - Left, CVA Tenderness - Right, Fuentes Present, Hematuria, Incontinence Labs: CBC, BMP 01/16/19 07:06 01/16/19 07:06 Imaging - Results Cat Scan: Report Reviewed Problem List - Problems (1) Bilateral kidney stones Assessment/Plan: no obstruction or signs of sepsis. Stones may be the source of the recurrent UTIs. Recommend treating the UTI and keeping her on abx until lithotripsy can be scheduled. She wants to follow up with her usual Urologist Dr. Garcia in [place] Code(s): N20.0 - CALCULUS OF KIDNEY (2) UTI (urinary tract infection) Code(s): N39.0 - URINARY TRACT INFECTION, SITE NOT SPECIFIED
[2019-01-16] MEDS: metoPROLOL SUCCINATE 25 MG TAB.SR.24H (FP) PO SCH (21:42)
[2019-01-16] MEDS ORDERED: DOXYCYCLINE INJECTION 100 MG in DEXTROSE 5%-WATER - 100 ML IVPB SCH (22:00)
[2019-01-17] MEDS ORDERED: DEXTROSE 5%-WATER - 50 ML IVPB ONE ×3 (01:35→17:13)
[2019-01-17] MEDS ORDERED: PIPERACILLIN/TAZOBACTAM 3.375 GM VIAL IVPB ONE ×3 (01:35→17:13)
[2019-01-17] MEDS: PIPERACILLIN/TAZOB 3.375 GM 3.375 GM in DEXTROSE 5%-WATER - 50 ML IVPB SCH ×3 (01:40→17:28)
[2019-01-17 07:30] LABS: BASO % 4.5 % (0-2.0); EOS % 5.2 % (0-4.5); HEMATOCRIT 35.6 % (32.4-45.2); HEMOGLOBIN 11.9 GM/dl (10.7-15.3); LYMPH % 16.6 % (8-40); MCH 31.7 pg (25.7-33.7); MCHC 33.6 g/dl (32.0-36.0); MEAN CELL VOLUME 94.4 fl (80-96); MEAN PLT VOLUME 8.3 fl (7.5-11.1); MONO % 11.6 % (3.8-10.2); NEUT % 62.1 % (42.8-82.8); PLATELET COUNT 554 K/MM3 (134-434); RBC 3.77 M/mm3 (3.60-5.2); RDW 13.4 % (11.6-15.6); WHITE BLOOD COUNT 6.4 K/mm3 (4.0-10.8)
[2019-01-17 07:41] LABS: ALBUMIN 2.9 g/dl (3.4-5.0); BILIRUBIN,TOTAL 0.4 mg/dl (0.2-1); CALCIUM 9.7 mg/dl (8.5-10); CREATININE 0.6 mg/dl (0.55-1.3); POTASSIUM 4.9 mmol/L (3.5-5.1); TOT PROT 5.7 g/dl (6.4-8.2)
--- NOTE | 2019-01-17 08:12 | PN ---
Physical Exam: SUBJECTIVE: Patient seen and examined at bedside with DIAZ Tovar. Patient denies intervening trauma to the RLE since sutures placed. OBJECTIVE: Vital Signs Period Temp Pulse Resp BP Sys/Parra Pulse Ox Last 24 Hr 97.3 F-98.1 F 64-78 16-18 119-153/58-72 95-96 GENERAL: The patient is awake, alert, and fully oriented, in no acute distress. LUNGS: Breath sounds equal, clear to auscultation bilaterally, no wheezes, no crackles, no accessory muscle use. HEART: Regular rate and rhythm, S1, S2 ABDOMEN: Soft, nontender, nondistended, normoactive bowel sounds RLE: area of ecchymosis distal to the suture line; mild oozing dark red blood NEUROLOGICAL: Cranial nerves II through XII grossly intact. Normal speech, stable gait with cane Laboratory Results - last 24 hr 01/16/19 01/16/19 01/17/19 07:06 07:06 07:10 WBC 9.3 6.4 RBC 3.63 3.77 Hgb 11.6 11.9 Hct 34.3 35.6 MCV 94.6 94.4 MCH 32.1 31.7 MCHC 33.9 33.6 RDW 13.6 13.4 Plt Count 577 H 554 H MPV 9.0 8.3 Absolute Neuts (auto) 6.8 4.0 Neutrophils % 73.7 62.1 Lymphocytes % 12.9 16.6 Monocytes % 8.1 11.6 H Eosinophils % 4.0 5.2 H Basophils % 1.3 4.5 H Platelet Estimate Mod increased Platelet Comment Mod.large platelets Sodium 137 Potassium 4.4 Chloride 105 Carbon Dioxide 27 Anion Gap 5 L BUN 10.0 Creatinine 0.5 L Est GFR (CKD-EPI)AfAm 110.50 Est GFR (CKD-EPI)NonAf 95.34 Random Glucose 92 Calcium 9.7 Magnesium Total Bilirubin 0.5 AST 11 L ALT 18 Alkaline Phosphatase 90 D Total Protein 5.5 L Albumin 2.8 L 01/17/19 07:10 WBC RBC Hgb Hct MCV MCH MCHC RDW Plt Count MPV Absolute Neuts (auto) Neutrophils % Lymphocytes % Monocytes % Eosinophils % Basophils % Platelet Estimate Platelet Comment Sodium 137 Potassium 4.9 Chloride 105 Carbon Dioxide 27 Anion Gap 5 L BUN 9.0 Creatinine 0.6 Est GFR (CKD-EPI)AfAm 104.07 Est GFR (CKD-EPI)NonAf 89.79 Random Glucose 98 Calcium 9.7 Magnesium 2.0 Total Bilirubin 0.4 AST 10 L ALT 16 Alkaline Phosphatase 96 Total Protein 5.7 L Albumin 2.9 L Active Medications Generic Name Dose Route Start Last Admin Trade Name Freq PRN Reason Stop Dose Admin Acetaminophen 650 mg 01/15/19 18:33 01/16/19 06:18 Tylenol - PO 650 mg Q6H PRN Administration PAIN LEVEL 1-5 Aspirin 81 mg 01/16/19 10:00 01/16/19 09:56 Asa - PO 81 mg DAILY ROBIN Administration Bacitracin/Polymyxin B Sulfate 1 applic 01/15/19 22:00 01/16/19 21:42 Polysporin Ointment - TP 1 applic BID ROBIN Administration Enoxaparin Sodium 40 mg 01/16/19 10:00 01/16/19 09:57 Lovenox - SQ 40 mg DAILY ROBIN Administration Piperacillin Sod/Tazobactam 50 mls @ 100 mls/hr 01/16/19 18:00 01/17/19 01:40 Sod 3.375 gm/ Dextrose IVPB 100 mls/hr Q8H-IV ROBIN Administration Protocol Doxycycline Hyclate 100 mg/ 100 mls @ 100 mls/hr 01/17/19 10:00 Dextrose IVPB BID ROBIN Metoprolol Succinate 25 mg 01/15/19 22:00 01/16/19 21:42 Toprol Xl - PO 25 mg HS ROBIN Administration ASSESSMENT/PLAN 73 year-old female with a PMH significant for HTN, CAD s/p stent, left ankle ORIF (September 2018), and recently hospitalized for E.coli bacteremia and severe sepsis secondary to left-sided pyelonephritis treated with Zosyn (01/04-01/10). Admitted for persistent left-sided pyelonephritis. Left-sided pyelonephritis UTI --01/15 CTAP: persistent acute/subacute left-sided pyelonephritis and pyelitis --positive UA; blood and urine cultures pending --continue Zosyn (IV antibiotics day #3) --ID following Nonobstructing renal calculi --01/15 CTAP: (1) nonobstructing left renal calculi; (2) nonobstructing calculi left renal pelvis; (3) 0.3cm calcification adjacent to left UVJ probably a phlebolith v. utereral calculus; (4) 1 cm calculus in the right renal pelvis, unchanged from 01/04 imaging RIGHT lower back pain/RLQ pain --uncertain etiology: (1) s/p appendectomy (childhood); (2) right renal pelvic calculus is nonobstructing and has not migrated; (3) 01/16 CT lumbar spine shows multilevel DDD, multilevel mild disc bulge, spur formation, and bilateral facet hypertrophy reaching LEFT S1 nerve root at L5-S1 level without gross impingement, and reaching and likely slightly impinging LEFT L3 nerve root at L3-L4 level. --01/16 Xray RIGHT hip: unremarkable --01/16 US transvaginal: unremarkable --pain has improved significantly since admission, ambulates with a cane which is baseline Right leg laceration --sutures still in place, mild oozing dark red blood --erythema surrounding sutures and a blood-filled blister, not seen during previous hospitalization; patient denies intervening trauma --seen and evaluated by vascular, will likely defer suture removal --continue doxycycline Hypertension --BP stable --continue ToprolXL Coronary artery disease --had negative ischemic workup, unremarkable echo during last hospitalization --continue ASA, ToprolXL Vaginal itching --patient states has resolved Left ankle fracture s/p ORIF October 2018 --has been in rehab, goes to PT, on disability and expected to go back to work on 02/03 --uses a walker at baseline, at home switches to cane --working daily with PT here FEN Fluids: PO intake adequate Electrolytes: replete as indicated Nutrition: low sodium DVT prophylaxis: subq lovenox Dispo: continues to require inpatient care. Full code. Visit type - Emergency Visit Emergency Visit: Yes ED Registration Date: 01/15/19 Care time: The patient presented to the Emergency Department on the above date and was hospitalized for further evaluation of their emergent condition. - New Patient This patient is new to me today: No - Critical Care Critical Care patient: No
[2019-01-17] MEDS ORDERED: DEXTROSE 5%-WATER 100 ML IVPB ONE (09:03)
[2019-01-17] MEDS ORDERED: DOXYCYCLINE HYCLATE 100 MG VIAL ONE (09:03)
[2019-01-17] MEDS: ASPIRIN 81 MG CHEWABLE TABLETS PO SCH (09:43)
[2019-01-17] MEDS: ENOXAPARIN NA (PORCINE) 40 MG/0.4 ML DISP.SYRIN SQ SCH (09:46)
[2019-01-17] MEDS: ACETAMINOPHEN 325 MG TABLET (FP) PO PRN ×3 (09:47→23:27)
[2019-01-17] MEDS: BACITRACIN/POLYMYXIN B SULFATE 15 GM TUBE TP SCH ×2 (09:52→22:22)
[2019-01-17] MEDS ORDERED: DOXYCYCLINE INJECTION 100 MG in DEXTROSE 5%-WATER 100 ML IVPB SCH (10:00)
--- NOTE | 2019-01-17 10:21 | PN ---
Progress Note (short form) - Note Progress Note: Vascular Surgery: Asked to see the patient for follow up wound care. She had a laceration repaired on 01/04 in the ER at [facility] for an injury she sustained after falling. She states that she was septic and fell. At the time, she was admitted to the hospital. She returned to the ER yesterday with recurrent UTI symptoms and was admitted. The patient hasn't seen her wound and is uncertain when it developed a blister. She denies any chronic steroid use or diabetes. PAST MEDICAL HISTORY: Hypertension Coronary artery disease s/p stent PAST SURGICAL HISTORY: Coronary artery stent Left ankle ORIF Social History: Smoking: no Vital Signs Period Temp Pulse Resp BP Sys/Parra Pulse Ox Last 24 Hr 97.3 F-98.1 F 64-78 16-18 119-153/58-72 95-96 GEN: RLE-notes reviewed wound size 12cm by 7cm in length. Slight separation in in skin edges(several places) with sutures in place/not fully healed. Small blister(blood) filled approx 2x1cm on the medial aspect touching the wound edge. Inferiorly with brusing(resolving) distally closer to the wound it is erythematous. No drainage noted. A/P: 73 yo female s/p RLE laceration repair in the ER 01/04 D/w Dr. Harper and recommend for the sutures to remain in place. The wound edges aren't completely healed and she may have sustained a repeat injury since there appears to more burising and a blister. The patient denies any further trauma and here wound was healing when she was discharged on 01/10. Apply bacitracin to the area. She may either followup in the wound clinic for wound evaluation and suture removal. The patient also states that she works in an [employer] and was planning to be seen be seen by the physician there for suture removal.
[2019-01-17] MEDS: metoPROLOL SUCCINATE 25 MG TAB.SR.24H (FP) PO SCH (21:38)
[2019-01-17] MEDS ORDERED: PT OWN MED DRAWER 7, Y5N ONE (22:17)
[2019-01-18] MEDS ORDERED: PIPERACILLIN/TAZOBACTAM 3.375 GM VIAL IVPB ONE ×3 (02:04→17:02)
[2019-01-18] MEDS ORDERED: DEXTROSE 5%-WATER - 50 ML IVPB ONE ×3 (02:04→17:02)
[2019-01-18] MEDS: PIPERACILLIN/TAZOB 3.375 GM 3.375 GM in DEXTROSE 5%-WATER - 50 ML IVPB SCH ×3 (02:11→17:12)
[2019-01-18] MEDS: ACETAMINOPHEN 325 MG TABLET (FP) PO PRN ×3 (06:31→19:15)
--- NOTE | 2019-01-18 07:58 | PN ---
Physical Exam: SUBJECTIVE: Patient seen and examined oob to chair. OBJECTIVE: Vital Signs Period Temp Pulse Resp BP Sys/Parra Pulse Ox Last 24 Hr 97.2 F-98.6 F 64-76 16-18 110-164/59-86 92-97 GENERAL: The patient is awake, alert, and fully oriented, in no acute distress. LUNGS: Breath sounds equal, clear to auscultation bilaterally, no wheezes, no crackles, no accessory muscle use. HEART: Regular rate and rhythm, S1, S2 ABDOMEN: Soft, nontender, nondistended, normoactive bowel sounds RLE: area of ecchymosis distal to the suture line; +blood-filled blister NEUROLOGICAL: Cranial nerves II through XII grossly intact. Normal speech, gait not observed today Active Medications Generic Name Dose Route Start Last Admin Trade Name Freq PRN Reason Stop Dose Admin Acetaminophen 650 mg 01/15/19 18:33 01/18/19 06:31 Tylenol - PO 650 mg Q6H PRN Administration PAIN LEVEL 1-5 Aspirin 81 mg 01/16/19 10:00 01/17/19 09:43 Asa - PO 81 mg DAILY ROBIN Administration Bacitracin/Polymyxin B Sulfate 1 applic 01/15/19 22:00 01/17/19 22:22 Polysporin Ointment - TP 1 applic BID ROBIN Administration Doxycycline Hyclate 100 mg 01/18/19 10:00 Vibramycin - PO BID@1000,1800 ROBIN Enoxaparin Sodium 40 mg 01/16/19 10:00 01/17/19 09:46 Lovenox - SQ 40 mg DAILY ROBIN Administration Piperacillin Sod/Tazobactam 50 mls @ 100 mls/hr 01/16/19 18:00 01/18/19 02:11 Sod 3.375 gm/ Dextrose IVPB 100 mls/hr Q8H-IV ROBIN Administration Protocol Metoprolol Succinate 25 mg 01/15/19 22:00 01/17/19 21:38 Toprol Xl - PO 25 mg HS ROBIN Administration ASSESSMENT/PLAN: 73 year-old female with a PMH significant for HTN, CAD s/p stent, left ankle ORIF (September 2018), and recently hospitalized for E.coli bacteremia and severe sepsis secondary to left-sided pyelonephritis treated with Zosyn (01/04-01/10). Admitted for persistent left-sided pyelonephritis. Left-sided pyelonephritis UTI --01/15 CTAP: persistent acute/subacute left-sided pyelonephritis and pyelitis --positive UA; blood and urine cultures pending --continue Zosyn (IV antibiotics day #3) --ID following Nonobstructing renal calculi --01/15 CTAP: (1) nonobstructing left renal calculi; (2) nonobstructing calculi left renal pelvis; (3) 0.3cm calcification adjacent to left UVJ probably a phlebolith v. utereral calculus; (4) 1 cm calculus in the right renal pelvis, unchanged from 01/04 imaging RIGHT lower back pain/RLQ pain --uncertain etiology: (1) s/p appendectomy (childhood); (2) right renal pelvic calculus is nonobstructing and has not migrated; (3) 01/16 CT lumbar spine shows multilevel DDD, multilevel mild disc bulge, spur formation, and bilateral facet hypertrophy reaching LEFT S1 nerve root at L5-S1 level without gross impingement, and reaching and likely slightly impinging LEFT L3 nerve root at L3-L4 level. --01/16 Xray RIGHT hip: unremarkable --01/16 US transvaginal: unremarkable --pain has improved significantly since admission, ambulates with a cane which is baseline Right leg laceration --erythema surrounding sutures and a blood-filled blister, not seen during previous hospitalization; patient denies intervening trauma --seen and evaluated by vascular, defer suture removal --continue doxycycline for cellulitis; advised patient recommend sutures remain until doxy course is complete; advised patient can follow up at [facility] or with her own providers Hypertension --BP stable --continue ToprolXL Coronary artery disease --had negative ischemic workup, unremarkable echo during last hospitalization --continue ASA, ToprolXL Vaginal itching --resolved Left ankle fracture s/p ORIF October 2018 --has been in rehab, goes to PT, on disability and expected to go back to work on 02/03 --uses a walker at baseline, at home switches to cane --working daily with PT here FEN Fluids: PO intake adequate Electrolytes: replete as indicated Nutrition: low sodium DVT prophylaxis: subq lovenox Dispo: continues to require inpatient care. Full code. Visit type - Emergency Visit Emergency Visit: Yes ED Registration Date: 01/15/19 Care time: The patient presented to the Emergency Department on the above date and was hospitalized for further evaluation of their emergent condition. - New Patient This patient is new to me today: No - Critical Care Critical Care patient: No
[2019-01-18] MEDS ORDERED: BACITRACIN 15 GM TUBE TOPICAL OINTMENT TP SCH (10:00)
[2019-01-18] MEDS: ENOXAPARIN NA (PORCINE) 40 MG/0.4 ML DISP.SYRIN SQ SCH (10:00)
[2019-01-18] MEDS: DOXYCYCLINE HYCLATE 100 MG CAPSULE PO SCH ×2 (10:00→17:12)
[2019-01-18] MEDS: ASPIRIN 81 MG CHEWABLE TABLETS PO SCH (10:00)
[2019-01-18] MEDS ORDERED: DOXYCYCLINE HYCLATE 100 MG CAPSULE PO SCH (10:00)
[2019-01-18] MEDS: BACITRACIN/POLYMYXIN B SULFATE 15 GM TUBE TP SCH ×2 (10:01→21:11)
--- NOTE | 2019-01-18 15:15 | PN ---
Progress Note, Physician History of Present Illness: patient stable no new issues improving - Current Medication List Current Medications: Active Medications Acetaminophen (Tylenol -) 650 mg PO Q6H PRN PRN Reason: PAIN LEVEL 1-5 Last Admin: 01/18/19 12:22 Dose: 650 mg Aspirin (Asa -) 81 mg PO DAILY [facility] Last Admin: 01/18/19 10:00 Dose: 81 mg Bacitracin/Polymyxin B Sulfate (Polysporin Ointment -) 1 applic TP BID [facility] Last Admin: 01/18/19 10:01 Dose: 1 applic Doxycycline Hyclate (Vibramycin -) 100 mg PO BID@1000,1800 [facility] Last Admin: 01/18/19 10:00 Dose: 100 mg Enoxaparin Sodium (Lovenox -) 40 mg SQ DAILY [facility] Last Admin: 01/18/19 10:00 Dose: 40 mg Piperacillin Sod/Tazobactam (Sod 3.375 gm/ Dextrose) 50 mls @ 100 mls/hr IVPB Q8H-IV [facility]; Protocol Last Admin: 01/18/19 10:00 Dose: 100 mls/hr Metoprolol Succinate (Toprol Xl -) 25 mg PO HS [facility] Last Admin: 01/17/19 21:38 Dose: 25 mg - Objective Vital Signs: Vital Signs Temperature 97.6 F 01/18/19 14:13 Pulse Rate 68 01/18/19 14:13 Respiratory Rate 18 01/18/19 14:13 Blood Pressure 139/69 01/18/19 14:13 O2 Sat by Pulse Oximetry (%) 97 01/18/19 14:13 Constitutional: Yes: No Distress, Calm Cardiovascular: Yes: S1, S2 Respiratory: Yes: Regular, CTA Bilaterally Gastrointestinal: Yes: Normal Bowel Sounds, Soft Musculoskeletal: Yes: WNL Extremities: Yes: WNL Neurological: Yes: Alert, Oriented Psychiatric: Yes: Alert, Oriented Labs: CBC, BMP 01/17/19 07:10 01/17/19 07:10 INR, PTT INR 1.18 (0.82-1.09) 01/15/19 15:19 Assessment/Plan 73 year-old female with a PMH significant for HTN, CAD s/p stent, left ankle ORIF (September 2018), and recently hospitalized for E.coli bacteremia and severe sepsis secondary to left-sided pyelonephritis treated with Zosyn (01/04-01/10). Seen in the ED on 01/12 with symptoms of UTI, negative UA and culture <50k E. coli colonies, no antibiotics ordered. Presented again to ED on 01/15 with a complaint of low back pain, frequency, and vaginal itching. Left-sided pyelonephritis UTI Right lower back pain/RLQ pain Right leg laceration Cellulitis Hypertension Coronary artery disease Vaginal itching plan continue abx await for identification of the organisms rest as per the team
--- NOTE | 2019-01-18 15:18 | PN ---
Progress Note, Physician History of Present Illness: patient stable no new issues - Current Medication List Current Medications: Active Medications Acetaminophen (Tylenol -) 650 mg PO Q6H PRN PRN Reason: PAIN LEVEL 1-5 Last Admin: 01/18/19 12:22 Dose: 650 mg Aspirin (Asa -) 81 mg PO DAILY [facility] Last Admin: 01/18/19 10:00 Dose: 81 mg Bacitracin/Polymyxin B Sulfate (Polysporin Ointment -) 1 applic TP BID [facility]PL[facility] BY [facility] Last Admin: 01/18/19 10:01 Dose: 1 applic Doxycycline Hyclate (Vibramycin -) 100 mg PO BID@1000,1800 REPLACED BY [facility] Last Admin: 01/18/19 10:00 Dose: 100 mg Enoxaparin Sodium (Lovenox -) 40 mg SQ DAILY [facility] Last Admin: 01/18/19 10:00 Dose: 40 mg Piperacillin Sod/Tazobactam (Sod 3.375 gm/ Dextrose) 50 mls @ 100 mls/hr IVPB Q8H-IV ROBIN; Protocol Last Admin: 01/18/19 10:00 Dose: 100 mls/hr Metoprolol Succinate (Toprol Xl -) 25 mg PO HS [facility]PLACED BY [facility] Last Admin: 01/17/19 21:38 Dose: 25 mg - Objective Vital Signs: Vital Signs Temperature 97.6 F 01/18/19 14:13 Pulse Rate 68 01/18/19 14:13 Respiratory Rate 18 01/18/19 14:13 Blood Pressure 139/69 01/18/19 14:13 O2 Sat by Pulse Oximetry (%) 97 01/18/19 14:13 Constitutional: Yes: No Distress, Calm Cardiovascular: Yes: S1, S2 Respiratory: Yes: Regular, CTA Bilaterally Gastrointestinal: Yes: Normal Bowel Sounds, Soft Musculoskeletal: Yes: WNL Extremities: Yes: WNL Neurological: Yes: Alert, Oriented Psychiatric: Yes: Alert, Oriented Labs: CBC, BMP 01/17/19 07:10 01/17/19 07:10 INR, PTT INR 1.18 (0.82-1.09) 01/15/19 15:19 Assessment/Plan 73 year-old female with a PMH significant for HTN, CAD s/p stent, left ankle ORIF (September 2018), and recently hospitalized for E.coli bacteremia and severe sepsis secondary to left-sided pyelonephritis treated with Zosyn (01/04-01/10). Seen in the ED on 01/12 with symptoms of UTI, negative UA and culture <50k E. coli colonies, no antibiotics ordered. Presented again to ED on 01/15 with a complaint of low back pain, frequency, and vaginal itching. Left-sided pyelonephritis UTI Right lower back pain/RLQ pain Right leg laceration Cellulitis Hypertension Coronary artery disease Vaginal itching plan we will treat patient with 2 weeks of abx we will give 5 days of iv and then 9 days of levaquin to complete a 2 week course
[2019-01-18] MEDS: metoPROLOL SUCCINATE 25 MG TAB.SR.24H (FP) PO SCH (21:10)
[2019-01-19] MEDS: ACETAMINOPHEN 325 MG TABLET (FP) PO PRN ×4 (00:15→23:11)
[2019-01-19] MEDS ORDERED: PIPERACILLIN/TAZOBACTAM 3.375 GM VIAL IVPB ONE ×3 (01:12→17:08)
[2019-01-19] MEDS ORDERED: DEXTROSE 5%-WATER - 50 ML IVPB ONE ×3 (01:12→17:08)
[2019-01-19] MEDS: PIPERACILLIN/TAZOB 3.375 GM 3.375 GM in DEXTROSE 5%-WATER - 50 ML IVPB SCH ×3 (01:16→22:59)
--- NOTE | 2019-01-19 04:24 | PN ---
Physical Exam: SUBJECTIVE: Patient seen and examined oob to chair. OBJECTIVE: Vital Signs Period Temp Pulse Resp BP Sys/Parra Pulse Ox Last 24 Hr 97.2 F-98.2 F 64-88 16-19 114-164/69-86 94-98 GENERAL: The patient is awake, alert, and fully oriented, in no acute distress. LUNGS: Breath sounds equal, clear to auscultation bilaterally, no wheezes, no crackles, no accessory muscle use. HEART: Regular rate and rhythm, S1, S2 ABDOMEN: Soft, nontender, nondistended, normoactive bowel sounds RLE: area of ecchymosis distal to the suture line; mild oozing dark red blood NEUROLOGICAL: Cranial nerves II through XII grossly intact. Normal speech, stable gait with cane Active Medications Generic Name Dose Route Start Last Admin Trade Name Freq PRN Reason Stop Dose Admin Acetaminophen 650 mg 01/15/19 18:33 01/19/19 00:15 Tylenol - PO 650 mg Q6H PRN Administration PAIN LEVEL 1-5 Aspirin 81 mg 01/16/19 10:00 01/18/19 10:00 Asa - PO 81 mg DAILY ROBIN Administration Bacitracin/Polymyxin B Sulfate 1 applic 01/15/19 22:00 01/18/19 21:11 Polysporin Ointment - TP 1 applic BID ROBIN Administration Doxycycline Hyclate 100 mg 01/18/19 10:00 01/18/19 17:12 Vibramycin - PO 100 mg BID@1000,1800 ROBIN Administration Enoxaparin Sodium 40 mg 01/16/19 10:00 01/18/19 10:00 Lovenox - SQ 40 mg DAILY ROBIN Administration Piperacillin Sod/Tazobactam 50 mls @ 100 mls/hr 01/16/19 18:00 01/19/19 01:16 Sod 3.375 gm/ Dextrose IVPB 100 mls/hr Q8H-IV ROBIN Administration Protocol Metoprolol Succinate 25 mg 01/15/19 22:00 01/18/19 21:10 Toprol Xl - PO 25 mg HS ROBIN Administration ASSESSMENT/PLAN: 73 year-old female with a PMH significant for HTN, CAD s/p stent, left ankle ORIF (September 2018), and recently hospitalized for E.coli bacteremia and severe sepsis secondary to left-sided pyelonephritis treated with Zosyn (01/04-01/10). Admitted for persistent left-sided pyelonephritis. Left-sided pyelonephritis E. coli UTI --01/15 CTAP: persistent acute/subacute left-sided pyelonephritis and pyelitis --continue Zosyn (IV antibiotics day #4) --ID following Nonobstructing renal calculi --01/15 CTAP: (1) nonobstructing left renal calculi; (2) nonobstructing calculi left renal pelvis; (3) 0.3cm calcification adjacent to left UVJ probably a phlebolith v. utereral calculus; (4) 1 cm calculus in the right renal pelvis, unchanged from 01/04 imaging RIGHT lower back pain/RLQ pain --uncertain etiology: (1) s/p appendectomy (childhood); (2) right renal pelvic calculus is nonobstructing and has not migrated; (3) 01/16 CT lumbar spine shows multilevel DDD, multilevel mild disc bulge, spur formation, and bilateral facet hypertrophy reaching LEFT S1 nerve root at L5-S1 level without gross impingement, and reaching and likely slightly impinging LEFT L3 nerve root at L3-L4 level. --01/16 Xray RIGHT hip: unremarkable --01/16 US transvaginal: unremarkable --pain has improved significantly since admission, ambulates with a cane which is baseline --no obvious source for right sided pain which has improved significantly, patient reports no pain today; she ambulates with a cane at baseline; recommend patient follow up with her orthopedist Dr. Miller who follows patient for her chronic DDD Right leg laceration --sutures still in place, mild oozing dark red blood --erythema surrounding sutures and a blood-filled blister, not seen during previous hospitalization; patient denies intervening trauma --seen and evaluated by vascular, will likely defer suture removal --continue doxycycline Hypertension --BP stable --continue ToprolXL Coronary artery disease --had negative ischemic workup, unremarkable echo during last hospitalization --continue ASA, ToprolXL Vaginal itching --patient states has resolved Left ankle fracture s/p ORIF October 2018 --has been in rehab, goes to PT, on disability and expected to go back to work on 02/03 --uses a walker at baseline, at home switches to cane --working daily with PT here FEN Fluids: PO intake adequate Electrolytes: replete as indicated Nutrition: low sodium DVT prophylaxis: subq lovenox Dispo: continues to require inpatient care. Full code. Visit type - Emergency Visit Emergency Visit: Yes ED Registration Date: 01/15/19 Care time: The patient presented to the Emergency Department on the above date and was hospitalized for further evaluation of their emergent condition. - New Patient This patient is new to me today: No - Critical Care Critical Care patient: No
[2019-01-19] MEDS ORDERED: BISACODYL 10 MG SUPP.RECT RC PRN (08:49)
[2019-01-19] MEDS: POLYETHYLENE GLYCOL 3350 119 GM BTL PO SCH ×2 (10:12→21:55)
[2019-01-19] MEDS: BACITRACIN/POLYMYXIN B SULFATE 15 GM TUBE TP SCH ×2 (10:13→21:55)
[2019-01-19] MEDS: ENOXAPARIN NA (PORCINE) 40 MG/0.4 ML DISP.SYRIN SQ SCH (10:13)
[2019-01-19] MEDS: ASPIRIN 81 MG CHEWABLE TABLETS PO SCH (10:13)
[2019-01-19] MEDS: DOXYCYCLINE HYCLATE 100 MG CAPSULE PO SCH (10:14)
--- NOTE | 2019-01-19 14:38 | PN ---
Progress Note, Physician History of Present Illness: stable doing well - Current Medication List Current Medications: Active Medications Acetaminophen (Tylenol -) 650 mg PO Q6H PRN PRN Reason: PAIN LEVEL 1-5 Last Admin: 01/19/19 05:19 Dose: 650 mg Aspirin (Asa -) 81 mg PO DAILY [facility] Last Admin: 01/19/19 10:13 Dose: 81 mg Bacitracin/Polymyxin B Sulfate (Polysporin Ointment -) 1 applic TP BID [facility] Last Admin: 01/19/19 10:13 Dose: 1 applic Bisacodyl (Dulcolax Suppository -) 10 mg RC DAILY PRN PRN Reason: CONSTIPATION Doxycycline Hyclate (Vibramycin -) 100 mg PO BID@1000,1800 [facility] Last Admin: 01/19/19 10:14 Dose: 100 mg Enoxaparin Sodium (Lovenox -) 40 mg SQ DAILY [facility] Last Admin: 01/19/19 10:13 Dose: 40 mg Piperacillin Sod/Tazobactam (Sod 3.375 gm/ Dextrose) 50 mls @ 100 mls/hr IVPB Q8H-IV [facility]; Protocol Last Admin: 01/19/19 10:14 Dose: 100 mls/hr Metoprolol Succinate (Toprol Xl -) 25 mg PO HS [facility] Last Admin: 01/18/19 21:10 Dose: 25 mg Polyethylene Glycol (Miralax (For Daily Use) -) 17 gm PO BID [facility] Last Admin: 01/19/19 10:12 Dose: 17 grams Senna/Docusate Sodium (Pericolace -) 2 tablet PO [facility] Stop: 01/20/19 08:49 - Objective Vital Signs: Vital Signs Temperature 98.4 F 01/19/19 06:00 Pulse Rate 65 01/19/19 06:00 Respiratory Rate 18 01/19/19 06:00 Blood Pressure 158/68 01/19/19 06:00 O2 Sat by Pulse Oximetry (%) 94 L 01/19/19 06:00 Constitutional: Yes: No Distress, Calm Cardiovascular: Yes: S1, S2 Respiratory: Yes: Regular, CTA Bilaterally Gastrointestinal: Yes: Normal Bowel Sounds, Soft Musculoskeletal: Yes: WNL Extremities: Yes: WNL Neurological: Yes: Alert, Oriented Psychiatric: Yes: Alert, Oriented Labs: CBC, BMP 01/17/19 07:10 01/17/19 07:10 INR, PTT INR 1.18 (0.82-1.09) 01/15/19 15:19 Assessment/Plan 73 year-old female with a PMH significant for HTN, CAD s/p stent, left ankle ORIF (September 2018), and recently hospitalized for E.coli bacteremia and severe sepsis secondary to left-sided pyelonephritis treated with Zosyn (01/04-01/10). Seen in the ED on 01/12 with symptoms of UTI, negative UA and culture <50k E. coli colonies, no antibiotics ordered. Presented again to ED on 01/15 with a complaint of low back pain, frequency, and vaginal itching. Left-sided pyelonephritis UTI Right lower back pain/RLQ pain Right leg laceration Cellulitis Hypertension Coronary artery disease Vaginal itching plan we will treat patient with 2 weeks of abx we will give 5 days of iv and then 9 days of levaquin to complete a 2 week course
[2019-01-19] MEDS: metoPROLOL SUCCINATE 25 MG TAB.SR.24H (FP) PO SCH (21:55)
[2019-01-19] MEDS ORDERED: SENNOSIDES/DOCUSATE COMBO (SENNA PLUS) TABLET (UD) PO SCH (22:00)
[2019-01-20] MEDS ORDERED: PIPERACILLIN/TAZOBACTAM 3.375 GM VIAL IVPB ONE ×3 (01:18→17:28)
[2019-01-20] MEDS ORDERED: DEXTROSE 5%-WATER - 50 ML IVPB ONE ×3 (01:19→17:28)
[2019-01-20] MEDS: PIPERACILLIN/TAZOB 3.375 GM 3.375 GM in DEXTROSE 5%-WATER - 50 ML IVPB SCH ×3 (01:37→17:51)
[2019-01-20] MEDS: ACETAMINOPHEN 325 MG TABLET (FP) PO PRN (05:51)
[2019-01-20] MEDS ORDERED: PT OWN MED DRAWER 7, Y5N ONE ×2 (09:30→17:27)
[2019-01-20] MEDS: DOXYCYCLINE HYCLATE 100 MG CAPSULE PO SCH ×2 (09:44→21:04)
[2019-01-20] MEDS: POLYETHYLENE GLYCOL 3350 119 GM BTL PO SCH ×2 (09:45→21:04)
[2019-01-20] MEDS: ASPIRIN 81 MG CHEWABLE TABLETS PO SCH (09:45)
[2019-01-20] MEDS: ENOXAPARIN NA (PORCINE) 40 MG/0.4 ML DISP.SYRIN SQ SCH (09:45)
[2019-01-20] MEDS: BACITRACIN/POLYMYXIN B SULFATE 15 GM TUBE TP SCH ×2 (09:47→21:04)
--- NOTE | 2019-01-20 12:08 | DS ---
Physical Exam: SUBJECTIVE: Patient seen and examined OBJECTIVE: Vital Signs Period Temp Pulse Resp BP Sys/Parra Pulse Ox Last 24 Hr 97.9 F-98.8 F 64-70 18-18 116-145/59-73 94-97 PHYSICAL EXAM GENERAL: The patient is awake, alert, and fully oriented, in no acute distress. LUNGS: Breath sounds equal, clear to auscultation bilaterally, no wheezes, no crackles, no accessory muscle use. HEART: Regular rate and rhythm, S1, S2 ABDOMEN: Soft, nontender, nondistended, normoactive bowel sounds RLE: area of erythema, ecchymosis distal to the suture line; wound edges slightly dehisced NEUROLOGICAL: Cranial nerves II through XII grossly intact. Normal speech, stable gait with cane LABS CBCD WBC 6.4 K/mm3 (4.0-10.8) 01/17/19 07:10 RBC 3.77 M/mm3 (3.60-5.2) 01/17/19 07:10 Hgb 11.9 GM/dl (10.7-15.3) 01/17/19 07:10 Hct 35.6 % (32.4-45.2) 01/17/19 07:10 MCV 94.4 fl (80-96) 01/17/19 07:10 MCHC 33.6 g/dl (32.0-36.0) 01/17/19 07:10 RDW 13.4 % (11.6-15.6) 01/17/19 07:10 Plt Count 554 K/MM3 (134-434) H 01/17/19 07:10 MPV 8.3 fl (7.5-11.1) 01/17/19 07:10 CMP Sodium 137 mmol/L (136-145) 01/17/19 07:10 Potassium 4.9 mmol/L (3.5-5.1) 01/17/19 07:10 Chloride 105 mmol/L (98-107) 01/17/19 07:10 Carbon Dioxide 27 mmol/L (21-32) 01/17/19 07:10 Anion Gap 5 MMOL/L (8-16) L 01/17/19 07:10 BUN 9.0 mg/dl (7-18) 01/17/19 07:10 Creatinine 0.6 mg/dl (0.55-1.3) 01/17/19 07:10 Calcium 9.7 mg/dl (8.5-10) 01/17/19 07:10 Total Bilirubin 0.4 mg/dl (0.2-1) 01/17/19 07:10 AST 10 U/L (15-37) L 01/17/19 07:10 ALT 16 U/L (13-61) 01/17/19 07:10 Alkaline Phosphatase 96 U/L (45-117) 01/17/19 07:10 Total Protein 5.7 g/dl (6.4-8.2) L 01/17/19 07:10 Albumin 2.9 g/dl (3.4-5.0) L 01/17/19 07:10 HOSPITAL COURSE: Date of Admission:01/15/19 Date of Discharge: 01/20/19 73 year-old female with a PMH significant for HTN, CAD s/p stent, left ankle ORIF (September 2018), and recently hospitalized for E.coli bacteremia and severe sepsis secondary to left-sided pyelonephritis treated with Zosyn (01/04-01/10). Admitted for persistent left-sided pyelonephritis. Left-sided pyelonephritis E. coli UTI --01/15 CTAP: persistent acute/subacute left-sided pyelonephritis and pyelitis --continue Zosyn (IV antibiotics day #5) --will discharge on levofloxacin for another 9 days of treatment Nonobstructing renal calculi --01/15 CTAP: (1) nonobstructing left renal calculi; (2) nonobstructing calculi left renal pelvis; (3) 0.3cm calcification adjacent to left UVJ probably a phlebolith v. utereral calculus; (4) 1 cm calculus in the right renal pelvis, unchanged from 01/04 imaging RIGHT lower back pain/RLQ pain --uncertain etiology: (1) s/p appendectomy (childhood); (2) right renal pelvic calculus is nonobstructing and has not migrated; (3) 01/16 CT lumbar spine shows multilevel DDD, multilevel mild disc bulge, spur formation, and bilateral facet hypertrophy reaching LEFT S1 nerve root at L5-S1 level without gross impingement, and reaching and likely slightly impinging LEFT L3 nerve root at L3-L4 level. --01/16 Xray RIGHT hip: unremarkable --01/16 US transvaginal: unremarkable --pain has improved significantly since admission, ambulates with a cane which is baseline --no obvious source for right sided pain which has improved significantly, patient reports no pain for past several days; she ambulates with a cane at baseline and walked 400 feet today in PT --recommend patient follow up with her orthopedist Dr. Miller who follows patient for her chronic DDD Right leg laceration Mild cellulitis --erythema surrounding sutures and a blood-filled blister, not seen during previous hospitalization; patient denies intervening trauma --seen and evaluated by vascular team, deferred suture removal --continue doxycycline for cellulitis; advised patient can follow up at [facility] or with her own providers Hypertension --BP stable --continue ToprolXL Coronary artery disease --had negative ischemic workup, unremarkable echo during last hospitalization --continue ASA, ToprolXL Vaginal itching --resolved without intervention Left ankle fracture s/p ORIF October 2018 --has been in rehab, goes to PT, on disability and expected to go back to work on 02/03 --uses a walker at baseline, at home switches to cane Minutes to complete discharge: 35 Discharge Summary Problems reviewed: Yes Reason For Visit: UTI - THROMBOCYTHEMIA Current Active Problems Bilateral kidney stones (Acute) Hypercalcemia (Acute) Thrombocythemia (Acute) UTI (urinary tract infection) (Acute) Condition: Improved - Instructions Diet, Activity, Other Instructions: You are being discharged with three prescription medications: (1) Bacitracin - topical ointment; (2) Levofloxacin - antibiotic; (3) Doxycycline - antibiotic. Take/use these medications as prescribed. Be sure to finish all antibiotics. You should follow up with your primary care provider, Dr. Morgan, when you finish taking the levofloxacin. You should have a urinalysis done to make sure you have cleared your infection. You should see your surgeon within 72 hours of your discharge for him to assess your sutures. Advise him that you have taken doxycline for a cellulitis. Disposition: HOME - Home Medications Comprehensive Discharge Medication List: Ambulatory Orders Metoprolol Succinate [Toprol Xl] 25 mg PO HS 01/04/19 Aspirin [ASA -] 81 mg PO DAILY 01/05/19 Bacitracin - [Bacitracin Topical Ointment -] 1 applic TP DAILY #1 tube 01/18/19 Doxycycline Hyclate [Vibramycin] 100 mg PO BID #6 capsule 01/20/19 Levofloxacin 750 mg PO DAILY #9 tablet 01/20/19 This patient is new to me today: No Emergency Visit: Yes ED Registration Date: 01/15/19 Care time: The patient presented to the Emergency Department on the above date and was hospitalized for further evaluation of their emergent condition. Critical Care patient: No - Discharge Referral Referred to [facility] No
[2019-01-20] MEDS: metoPROLOL SUCCINATE 25 MG TAB.SR.24H (FP) PO SCH (21:04)
[2019-01-21] MEDS ORDERED: DEXTROSE 5%-WATER - 50 ML IVPB ONE (01:31)
[2019-01-21] MEDS ORDERED: PIPERACILLIN/TAZOBACTAM 3.375 GM VIAL IVPB ONE (01:31)
[2019-01-21] MEDS: PIPERACILLIN/TAZOB 3.375 GM 3.375 GM in DEXTROSE 5%-WATER - 50 ML IVPB SCH (01:38)
--- NOTE | 2019-01-21 08:02 | PN ---
Progress Note (short form) - Note Progress Note: 73 year-old female with a PMH significant for HTN, CAD s/p stent, left ankle ORIF (September 2018), and recently hospitalized for E.coli bacteremia and severe sepsis secondary to left-sided pyelonephritis treated with Zosyn (01/04-01/10). Admitted for persistent left-sided pyelonephritis. GENERAL: The patient is awake, alert, and fully oriented, in no acute distress. LUNGS: Breath sounds equal, clear to auscultation bilaterally, no wheezes, no crackles, no accessory muscle use. HEART: Regular rate and rhythm, S1, S2 ABDOMEN: Soft, nontender, nondistended, normoactive bowel sounds RLE: area of erythema, ecchymosis distal to the suture line; wound edges slightly dehisced NEUROLOGICAL: Cranial nerves II through XII grossly intact. Normal speech, stable gait with can Pt is being discharged with three prescription medications: (1) Bacitracin - topical ointment; (2) Levofloxacin - antibiotic; (3) Doxycycline - antibiotic. To follow up with your primary care provider and see your within 72 hours of your discharge for him to assess your sutures. Advise him that you have taken doxycline for a cellulitis. Visit type - Emergency Visit Emergency Visit: Yes ED Registration Date: 01/15/19 Care time: The patient presented to the Emergency Department on the above date and was hospitalized for further evaluation of their emergent condition. - New Patient This patient is new to me today: Yes Date on this admission: 01/21/19 - Critical Care Critical Care patient: No - Discharge Referral Referred to [facility] No
[2019-01-21] MEDS: DOXYCYCLINE HYCLATE 100 MG CAPSULE PO SCH (10:00)
[2019-01-21] MEDS: ASPIRIN 81 MG CHEWABLE TABLETS PO SCH (10:00)
[2019-01-21] MEDS: ENOXAPARIN NA (PORCINE) 40 MG/0.4 ML DISP.SYRIN SQ SCH (10:00)
[2019-01-21] MEDS: BACITRACIN/POLYMYXIN B SULFATE 15 GM TUBE TP SCH (10:01)
[2019-01-21 10:11] VITALS: BP 129/83; PULSE 81; TEMP 97.7
== END 2019-01-21 10:41 | disposition home or self-care (01) | DRG 690 ==
LOC: FER 14:34 → FM/S 16:25
PROVIDERS: ADMIT Internal Medicine; ATTEND Nurse Practitioner Acute Care
DX: N12 Tubulo-interstitial nephritis, not specified as acute or chronic (principal); L03.115 Cellulitis of right lower limb; N39.0 Urinary tract infection, site not specified; I25.10 Atherosclerotic heart disease of native coronary artery without angina pectoris; I10 Essential (primary) hypertension; Z95.5 Presence of coronary angioplasty implant and graft; D47.3 Essential (hemorrhagic) thrombocythemia; E83.52 Hypercalcemia; M54.5 Low back pain; N20.0 Calculus of kidney; L29.9 Pruritus, unspecified; S81.811A Laceration without foreign body, right lower leg, initial encounter; B96.20 Unspecified Escherichia coli [E. coli] as the cause of diseases classified elsewhere
CPT/HCPCS: 36415; 72131-TC; 73523-TC-FY; 74177-TC; 76775-TC; 76830-TC; 76856-TC; 80053; 81003; 81015; 83605; 83735; 85025; 85610; 85730; 87040; 87086; 87186; 93005; 97116-GP; 97162-GP; 99285-25; J0131; J7030

== ENCOUNTER 2019-03-14 10:50 | Emergency (ER) | payer BC ==
--- NOTE | 2019-03-14 11:03 | PDOC ---
History of Present Illness - General Chief Complaint: Urinary Problem Stated Complaint: URINARY SX, LEFT FLANK PAIN Time Seen by Provider: 03/14/19 10:52 - History of Present Illness Initial Comments: 03/14/19 11:01 73 yo F PMH HTN, CAD s/p stent, left ankle ORIF (September 2018), recent hospitalization for E.coli bacteremia and severe sepsis secondary to left-sided pyelonephritis treated with Zosyn (01/04-01/10) with readmission 01/15-01/20 for ongoing L flank pain on Zosyn, d/c'd on Levaquin, found to have cellulitis along RLE injury on doxycycline and Bacitracin, p/w frequent urination and fever. Patient reports that she noticed frequent urination w/o dysuria yesterday , then began to develop chills. She then checked her temperature yesterday evening and found it to be 101F, prompting her to come in this morning. Specifically denies abdominal pain, flank pain, CP, SOB, constipation/diarrhea, dysuria. Endorses frequent urination and chills. Past History - Past Medical History Allergies/Adverse Reactions: Allergies Allergy/AdvReac Type Severity Reaction Status Date / Time No Known Drug Allergies Allergy Verified 03/14/19 11:05 Home Medications: Ambulatory Orders Metoprolol Succinate [Toprol Xl] 25 mg PO HS 01/04/19 Aspirin [ASA -] 81 mg PO DAILY 01/05/19 Cardiac Disorders: Yes (STENT X1) COPD: No Disorders: Yes (UROSEPSIS) HTN: Yes Kidney Stones: Yes (RENAL STENT PLACED AND REMOVED) - Surgical History Appendectomy: Yes Orthopedic Surgery: Yes (left ankle surgery) - Psycho Social/Smoking Cessation Hx Smoking History: Never smoked Have you smoked in the past 12 months: No Hx Alcohol Use: Yes (social) Drug/Substance Use Hx: No Substance Use Type: Alcohol Hx Substance Use Treatment: No Review of Systems - Review of Systems Comments:: 03/14/19 11:31 GENERAL/CONSTITUTIONAL: Fever and chills. No weakness. HEAD, EYES, EARS, NOSE AND THROAT: No change in vision. No ear pain or discharge. No sore throat. CARDIOVASCULAR: No chest pain or shortness of breath. RESPIRATORY: No cough, wheezing, or hemoptysis. GASTROINTESTINAL: No nausea, vomiting, diarrhea or constipation. GENITOURINARY: No dysuria or flank pain. Endorses frequency. MUSCULOSKELETAL: No joint or muscle swelling or pain. No neck or back pain. SKIN: No rash NEUROLOGIC: No headache, vertigo, loss of consciousness, or change in strength/ sensation. ENDOCRINE: No increased thirst. No abnormal weight change. HEMATOLOGIC/LYMPHATIC: No anemia, easy bleeding, or history of blood clots. ALLERGIC/IMMUNOLOGIC: No hives or skin allergy *Physical Exam - Physical Exam 03/14/19 11:32 Gen: well-developed, well-nourished, NAD Neuro: AAOX4, CN II-XII intact, FTN intact, EOMI, PERRLA, 5/5 strength, SILT HEENT: atraumatic, normocephalic, dry mucous membranes Neck: trachea midline, supple CV: regular rate, regular rhythm, no murmurs, rubs, or gallops Pulm: CTA b/l, no wheezing Abd: soft, non-distended, non-tender MSK: full ROM, intact pulses Extr: no edema, no deformities Skin: hot, dry ED Treatment Course - LABORATORY CBC & Chemistry Diagram: 03/14/19 11:45 03/14/19 11:45 Medical Decision Making - Medical Decision Making 03/14/19 11:32 Patient with significant pyelonephritis and urosepsis history, p/w frequent urination. - rectal temp - UA/UC - CBC, CMP - reassess 03/14/19 11:45 UA with significant UTI. Rectal temp 102.5F. Will give ceftriaxone, Ofirmev, fluids. 03/14/19 12:04 WBC 14.7. 03/14/19 15:19 4mm L kidney stone. Concern for infected stone. Spoke with Dr. Taylor, who would like her transferred to [facility] for emergency stent. 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 Spoke with Dr. Garcia, urologist, who will attempt to get a bed so that the patient can be transferred. Patient is currently hemodynamically stable. 03/14/19 18:[address] Velasquez in the [facility] ED, who will accept the patient as an ED to ED transfer, with Dr. Garcia seeing her after. Patient has been told that insurance may or not pay for her transfer, and she understands and accepts this possibility. 03/14/19 19:11 [facility] states they should be here in half an hour. Discharge - Discharge Information Problems reviewed: Yes Clinical Impression/Diagnosis: UTI (urinary tract infection), Kidney stone on left side Condition: Stable Disposition: TRANSFER ACUTE CARE/OTHER HOSP - Admission No - Follow up/Referral - Patient Discharge Instructions - Post Discharge Activity
[2019-03-14 11:09] VITALS: BMI 29.7
[2019-03-14] MEDS ORDERED: ACETAMINOPHEN 1000 MG/100 ML VIAL (NON FORMULARY) IVPB ONE ×2 (11:51→19:19)
[2019-03-14] MEDS ORDERED: SODIUM CHLORIDE 1,000 ML IV STA (11:51)
[2019-03-14] MEDS ORDERED: ACETAMINOPHEN INJECTION 100 ML IVPB ONE (11:53)
[2019-03-14 12:01] LABS: BASO % 3.4 % (0-2.0); EOS % 0.5 % (0-4.5); HEMATOCRIT 41.8 % (32.4-45.2); LYMPH % 9.3 % (8-40); MCH 31.4 pg (25.7-33.7); MCHC 33.6 g/dl (32.0-36.0); MEAN CELL VOLUME 93.5 fl (80-96); MEAN PLT VOLUME 9.2 fl (7.5-11.1); MONO % 7.5 % (3.8-10.2); NEUT % 79.3 % (42.8-82.8); PLATELET COUNT 302 K/MM3 (134-434); RBC 4.47 M/mm3 (3.60-5.2); RDW 12.8 % (11.6-15.6); WHITE BLOOD COUNT 14.7 K/mm3 (4.0-10.8)
[2019-03-14 12:08] LABS: ALBUMIN 3.7 g/dl (3.4-5.0); BILIRUBIN,TOTAL 1.1 mg/dl (0.2-1); CALCIUM 9.9 mg/dl (8.5-10); CREATININE 0.7 mg/dl (0.55-1.3)
--- NOTE | 2019-03-14 12:20 | PDOC ---
Attending Attestation - Resident Resident Name: Karen Brunson - ED Attending Attestation I have performed the following: I have examined & evaluated the patient, The case was reviewed & discussed with the resident, I agree w/resident's findings & plan, Exceptions are as noted - HPI HPI: 03/14/19 11:56 Agree with resident HPI - Physicial Exam PE: 03/14/19 11:56 GENERAL: Awake, alert, and fully oriented, in no acute distress. Appears fatigued. EYES: PERRLA, EOMI, sclera anicteric, conjunctiva clear ENT: Oropharynx clear without exudates. Moist mucosa NECK: Normal ROM, supple, no lymphadenopathy, JVD, or masses LUNGS: Breath sounds equal, clear to auscultation bilaterally. No wheezes, and no crackles HEART: Regular rate and rhythm, normal S1 and S2, no murmurs, rubs or gallops ABDOMEN: Soft, nontender, normoactive bowel sounds. No guarding, no rebound. No masses. No CVAT RECTAL: temp 102.5 EXTREMITIES: Normal range of motion, no edema. No cords, erythema, or tenderness. WWP. NEUROLOGICAL: Normal speech, cranial nerves intact, equal strength and sensation b/l SKIN: Warm, Dry, normal turgor, no rashes or lesions noted. - Medical Decision Making 03/14/19 12:20 73yo F hx recent e.coli bacteremia and urosepsis, previously also renal colic, lithotripsy 2018 presents to the ED with urinary frequemcy, weakness, found to have UTI, leukocytosis to 14.7, and rectal joann 102.5 concerning for recurrent urosepsis In light of recent R sided flank pain this morning, although now resolved, will obtain spiral CT to r/o obstruction Pt dosed zosyn, plan for admission 03/14/19 12:42 Pt admitted to [facility] 03/14/19 15:42 CTAP with obstructing 4mm stone in distal L ureter with mild hydro Case discussed with Dr. Vazquez who wants to take the pt to the OR for stent placement down at [facility] in 1 hour Plan discussed with pt (she is still in ED). She does not want to be operated on at [facility] and prefers to go to her urologist Dr. Garcia at [facility]. We discussed with pt that this could result in a delay of care as we have an OR getting ready at [facility] much sooner. We discussed at length that this delay of care could result in disability, worsening infection, or even . She appears to have the capacity to make this decision and understands the risk of delaying care for transfer down to [place]. She would prefer to go to [place]. Dr. Garcia would like the pt transferred to the ED, although we discussed this would be an EMTALA violation as pt has been admitted here at [facility]. He will try to secure a bed for us. 03/14/19 16:12 Dr. Garcia has been able to secure a bed for us and is the accepting physician , however when we reached out to the transfer center, there appears to be an insurance issue with transportation. We have contacted our insurance team to resolve the issue and are awaiting call back at this time to close the loop with the transfer center. 03/14/19 17:00 Per our nursing felt finishing supervisor, the insurance companies are closed and we can not secure transportation at this time. Prior authorization may take up to 3 days. 03/14/19 18:00 Discussed with major case detective Vijaya at [facility]. States that while bed request order was put in earlier, since there have been no admission orders, written H&P, and admission hasn't been filed with insurance, pt is still techincally still an ED patient and we can secure emergency ED to ED transfer. Confirmed the latter with Dr. Limon. Decision to admit has been cancelled. Will proceed with ED to ED transfer. [facility] has been updated. Case discussed with transfer center at [facility] who states pt no longer has bed but can be transferred to ED. Case discussed with ED attending Dr. Velasquez who accepts patient for transfer. We will arrange transportation through [facility].
[2019-03-14] MEDS ORDERED: PIPERACILLIN/TAZOB 4.5 GM 4.5 GM in DEXTROSE 5%-WATER - 100 ML IVPB ONE (12:22)
[2019-03-14] MEDS ORDERED: PIPERACILLIN/TAZOBACTAM 4.5 GM VIAL IVPB ONE (12:25)
[2019-03-14] MEDS ORDERED: KETOROLAC TROMETHAMINE 30 MG/1 ML VIAL IVPUSH ONE (15:30)
[2019-03-14] MEDS ORDERED: KETOROLAC TROMETHAMINE 15 MG/ML VIAL ONE (15:31)
[2019-03-14 19:33] VITALS: BP 140/64; PULSE 73; TEMP 98.5
--- NOTE | 2019-03-15 10:11 | EKG ---
Test Reason : Blood Pressure : / mmHG Vent. Rate : 077 BPM Atrial Rate : 077 BPM P-R Int : 138 ms QRS Dur : 080 ms QT Int : 384 ms P-R-T Axes : 020 -13 009 degrees QTc Int : 434 ms NORMAL SINUS RHYTHM CANNOT RULE OUT ANTERIOR INFARCT , AGE UNDETERMINED ABNORMAL ECG WHEN COMPARED WITH ECG OF 15-JAN-2019 16:54, NO SIGNIFICANT CHANGE WAS FOUND Confirmed by ARABELLA CHAN, DUY ([id number]) on 03/15/2019 10:10:35 AM Referred By: Confirmed By:DUY BELL MD
== END 2019-03-14 19:45 | disposition short-term general hospital (02) ==
LOC: FER 10:50 → UNDOADMIN 12:19 → FM/S 12:19 → FER 19:45
PROC: 3E033NZ Introduction of Analgesics, Hypnotics, Sedatives into Peripheral Vein, Percutaneous Approach (ICD-10-PCS; principal; 2019-03-14)
PROC: 3E0333Z Introduction of Anti-inflammatory into Peripheral Vein, Percutaneous Approach (ICD-10-PCS; 2019-03-14)
PROC: 3E03329 Introduction of Other Anti-infective into Peripheral Vein, Percutaneous Approach (ICD-10-PCS; 2019-03-14)
DX: N39.0 Urinary tract infection, site not specified (principal); N20.0 Calculus of kidney; N12 Tubulo-interstitial nephritis, not specified as acute or chronic; Z95.5 Presence of coronary angioplasty implant and graft; I10 Essential (primary) hypertension
CPT/HCPCS: 36415; 71045-TC-FY; 74176-TC; 80053; 81003; 81015; 85025; 87086; 93005; 99285-25; J0131; J7030

== ENCOUNTER 2021-09-20 12:05 | Emergency (ER) | payer BC, OTHER ==
[2021-09-20 12:15] VITALS: BMI 35.2
[2021-09-20] MEDS ORDERED: SODIUM CHLORIDE 1,000 ML IV ONE (12:20)
[2021-09-20 12:53] LABS: HEMATOCRIT 43.7 % (32.4-45.2); HEMOGLOBIN 15.1 G/dL (10.7-15.3); MCH 31.9 pg (25.7-33.7); MCHC 34.6 g/dl (32.0-36.0); MEAN CELL VOLUME 92.2 fl (80-96); PLATELET COUNT 365.9 10^3/uL (134-434); RBC 4.74 10^6/uL (3.60-5.2); RDW 13.1 % (11.6-15.6); WHITE BLOOD COUNT 22.9 10^3/uL (4.0-10.8)
[2021-09-20 13:05] LABS: EPITHELIAL CELLS FEW /hpf
[2021-09-20 13:06] LABS: ALBUMIN 3.2 g/dl (3.4-5.0); BILIRUBIN,TOTAL 0.9 mg/dl (0.2-1); CALCIUM 9.8 mg/dl (8.5-10); CREATININE 1.2 mg/dl (0.55-1.3); TOT PROT 6.6 g/dl (6.4-8.2)
[2021-09-20 13:49] LABS: PLATELET ESTIMATE ADEQUATE
[2021-09-20] MEDS ORDERED: CEFTRIAXONE 1,000 MG in DEXTROSE 5%-WATER - 50 ML IVPB ONE (14:44)
[2021-09-20] MEDS ORDERED: cefTRIAXone SODIUM 1 GM VIAL ONE (14:47)
[2021-09-20 16:25] VITALS: BP 133/68; PULSE 78; TEMP 98
== END 2021-09-20 16:16 | disposition home or self-care (01) ==
LOC: FER 12:05
PROC: 3E033GC Introduction of Other Therapeutic Substance into Peripheral Vein, Percutaneous Approach (ICD-10-PCS; principal; 2021-09-20)
DX: N30.01 Acute cystitis with hematuria (principal); D72.829 Elevated white blood cell count, unspecified
CPT/HCPCS: 36415; 80053; 81003; 81015; 85025; 87086; 96361; 96365; 99284-25

== ENCOUNTER 2023-10-17 13:04 | Emergency (ER) | payer BC ==
[2023-10-17 13:11] VITALS: RESP 18; BMI 35.2
[2023-10-17 14:16] VITALS: BP 145/90; PULSE 85; TEMP 98
[2023-10-17 14:23] LABS: EPITHELIAL CELLS 0-5 /hpf
== END 2023-10-17 14:20 | disposition home or self-care (01) ==
LOC: FER 13:04
DX: N30.00 Acute cystitis without hematuria (principal)
CPT/HCPCS: 81003; 81015; 99283-25

== ENCOUNTER 2024-10-07 22:09 | Emergency (ER) | payer BC ==
[2024-10-07 22:14] VITALS: BP 139/79; PULSE 85; RESP 18; TEMP 98.8; BMI 33.6
== END 2024-10-07 23:52 | disposition home or self-care (01) ==
LOC: FER 22:09
DX: S00.83XA Contusion of other part of head, initial encounter (principal); W01.198A Fall on same level from slipping, tripping and stumbling with subsequent striking against other object, initial encounter; Y92.009 Unspecified place in unspecified non-institutional (private) residence as the place of occurrence of the external cause
CPT/HCPCS: 70450-TC; 99284-25